=== PATIENT | male | born 1965 | race Caucasian/White ===

== ENCOUNTER → 2017-11-25 06:36 | Outpatient (CLI) | payer OTHER, SELFPAY ==
--- NOTE | 2017-11-25 15:44 | STRESSREP_ITS ---
Stress Test Report Exercise myocardial perfusion stress test. 52-year-old man with a history of coronary artery disease. Medications losartan and metoprolol. Stress protocol: Resting EKG demonstrates normal sinus rhythm with a rate of 94 bpm normal intervals and noted T-wave inversions noted in 3 and aVF. Resting blood pressure is 138/90 mmHg. The patient exercised for total duration of 6 minutes completing stage II of the Venkatesh protocol. The maximum heart rate attained was 162 bpm which was 95% of maximum predicted heart rate the maximum workload attained was 7.4 mets. At rest there were no ST or T-wave changes noted suggest ischemia or T-wave inversions were noted in the inferior leads. At peak exercise upsloping ST changes only were noted with no meet the criteria for ischemia. The resting blood pressure 738/90 with a peak blood pressure 172/ 80 mmHg. No clinical angina was noted. Myocardial perfusion protocol. 14.6 mCi of technetium 99m sestamibi was injected at rest. Patient exercised according to regular Venkatesh protocol for 6 minutes completing stage II of the Venkatesh protocol. At peak exercise 44.5 mCi of technetium 99m sestamibi was injected stress images were obtained stress and rest images were reconstructed and compared in the short axis vertical long and horizontal long axis. Gated images were also obtained. Perfusion SPECT analysis: Review of the stress images demonstrate normal uptake of tracer noted in the septum anterior wall and lateral wall. The distal inferior wall towards the apex has mildly reduced perfusion on the stress images with minimal improvement on the resting images. A small amount of ischemia in a small zone cannot be completely excluded. Gated SPECT analysis: The gated ejection fraction demonstrated globally reduced ejection fraction of 26%. Conclusion: Cardiomyopathy present. Exercise stress test with small/minimal area of inferoapical ischemia. The above could be accounted for by the cardiomyopathy. Good functional aerobic capacity.
== END ==
PROVIDERS: Family Provider Family Medicine; PCP Family Medicine; Visit Provider Internal Medicine Cardiovascular Disease
DX: I25.10 Atherosclerotic heart disease of native coronary artery without angina pectoris (principal); E78.4 Other hyperlipidemia
CPT/HCPCS: 78452; 93017; A9500; A4216

== ENCOUNTER → 2019-08-21 14:44 | Outpatient (CLI) | payer OTHER, SELFPAY ==
[2019-08-04 14:56] VITALS: BMI 46.0
--- NOTE | 2019-08-21 14:45 | ECHOCS_ITS ---
Reason For Study: CAD/ASHD Procedure This was a 2D Doppler, Color Flow transthoracic echocardiogram. The study was technically difficult. Contrast injection was performed. Exam performed in department. Left Ventricle Severely dilated left ventricle. The estimated ejection fraction is 35-40 %. Stage 1 diastolic dysfunction. There is moderate to severe global hypokinesis of the left ventricle. Right Ventricle Normal size and thickness. Normal systolic function. Atria Normal left atrium. Normal right atrium. Normal atrial septum. Mitral Valve Mitral valve not well visualized. Tricuspid Valve Normal tricuspid valve. Trivial tricuspid valve insufficiency. Right ventricular systolic pressure estimated to be 34 mmHg. Aortic Valve Normal aortic valve. Trisinus/trileaflet aortic valve. Pulmonic Valve Normal pulmonic valve. Trivial pulmonic valve insufficiency. Great Vessels Normal aortic root. Normal arch. Normal inferior vena cava. Inferior vena cava collapse with sniff. Pericardium/Pleural No pericardial effusion. Medication 22 gauge I.V. with prn adaptor inserted into right arm. Diluted definity 4.0ml given slow IV push to enhance endocardial definition. MMode/2D Measurements & Calculations LVIDd: 6.2 cm IVSd: 1.1 cm Ao root diam: 2.8 cm LVIDs: 4.8 cm LVPWd: 1.1 cm RVDd: 3.0 cm FS: 22.4 % LAV(MOD-bp): 34.8 ml LA A4 area: 14.5 cm2 LA dimension(2D): 4.3 cm LAV(MOD-bp) Indexed: 15.1 ml/m2 LAV(MOD-sp2): 29.5 ml LAV(MOD-sp4): 36.8 ml RA A4 area: 13.7 cm2 Time Measurements MV dec time: 0.14 sec Doppler Measurements & Calculations MV E max jeb: 84.4 cm/sec Lat Peak E' Jeb: 6.1 cm/sec Med Peak E' Jeb: 3.7 cm/sec MV A max jeb: 109.0 cm/sec E/E' lat: 13.9 E/E' med: 22.6 MV E/A: 0.77 Ao V2 max: 156.1 cm/sec LV V1 max: 97.8 cm/sec PA V2 max: 129.8 cm/sec Ao max P.7 mmHg LV V1 max P.8 mmHg TR max jeb: 267.3 cm/sec TR max P.6 mmHg Interpretation Summary Severely dilated left ventricle. The estimated ejection fraction is 35-40 %. Stage 1 diastolic dysfunction. There is moderate to severe global hypokinesis of the left ventricle. Trivial tricuspid valve insufficiency. Right ventricular systolic pressure estimated to be 34 mmHg. Compared to echo report dated 07/25/2009 LV function is decreased from 60% to 35 to 40% with moderate to severe global hypokinesis. RVSP may be underestimated. The study was technically difficult. Contrast injection was performed. Ordering Physician: Adebayo Velez Referring Physician: Freddy Dsouza Performed By: Lisa Esquivel RDCS, RVT
== END ==
PROVIDERS: Family Provider Family Medicine; PCP Family Medicine; Referring Provider Internal Medicine Cardiovascular Disease; Visit Provider Internal Medicine Cardiovascular Disease
DX: I25.10 Atherosclerotic heart disease of native coronary artery without angina pectoris (principal); I10 Essential (primary) hypertension; E78.5 Hyperlipidemia, unspecified; Z95.5 Presence of coronary angioplasty implant and graft; Z98.890 Other specified postprocedural states
CPT/HCPCS: 93306; Q9957; A4216; C8929

== ENCOUNTER → 2019-08-24 16:49 | Outpatient (CLI) | payer OTHER, SELFPAY ==
[2019-08-04 14:56] VITALS: BMI 46.0
[2019-08-24 20:20] LABS: BUN 23 mg/dL (7-18); Creatinine, Serum 1.15 mg/dL (0.70-1.30); EST Glomerular Filtration Rate 71 mL/min (>60); Est Glom Filt Rate - Afr Amer 86 mL/min (>60); Glucose 103 mg/dL (74-106)
[2019-08-24 20:21] LABS: Anion Gap 6 (5-15); Calcium,Total 9.1 mg/dL (8.5-10.1); Chloride 101 mmol/L (98-107); Hematocrit 47.1 % (40-54); Hemoglobin 15.2 g/dL (13.0-16.5); Mean Corp Hgb Conc 32.3 g/dL (32-36); Mean Corpuscular Hgb 28.1 pg (27.0-32.0); Mean Corpuscular Volume 87.1 fL (80-94); Mean Platelet Vol. 9.2 fl (6.2-12.0); Platelet Count 311 K/mm3 (150-450); Potassium 3.5 mmol/L (3.5-5.1); RBC Distribution Width CV 13.4 % (11.6-14.6); RBC Distribution Width SD 42.5 fl (35.1-43.9); Red Blood Count 5.41 M/mm3 (4.6-6.2); Sodium Level 135 mmol/L (136-145)
[2019-08-24 20:22] LABS: Partial Thromboplast Time 28.9 Seconds (24.1-36.2); Prothrombin Time (Protime)PT. 12.7 SECONDS (11.7-14.9)
== END ==
PROVIDERS: Family Provider Family Medicine; PCP Family Medicine; Referring Provider Internal Medicine Cardiovascular Disease; Visit Provider Internal Medicine Cardiovascular Disease
DX: I51.9 Heart disease, unspecified (principal); I25.10 Atherosclerotic heart disease of native coronary artery without angina pectoris; R94.31 Abnormal electrocardiogram [ECG] [EKG]; R93.1 Abnormal findings on diagnostic imaging of heart and coronary circulation; Z95.5 Presence of coronary angioplasty implant and graft; Z98.890 Other specified postprocedural states; Z82.49 Family history of ischemic heart disease and other diseases of the circulatory system
CPT/HCPCS: 71046; 80048; 85027; 85610; 85730

== ENCOUNTER 2019-09-02 07:02 | Day surgery (SDC) | payer OTHER, SELFPAY ==
--- NOTE | 2019-08-04 03:38 | HP_ITS ---
HPI HPI History of Present Illness Surgical H&P: Yes Details: Mr. Irwin is a very pleasant 54-year-old gentleman, previous [id number] smoker who quit at age 43, nondiabetic, former patient Dr. Romero, with a history of obesity, hypertension, hypercholesterolemia, coronary artery disease who presented on 03/15/2009 with unstable anginal symptoms and underwent left heart catheterization by Dr. Pardo on 03/15/2009 at [facility]. At that time he was found to have an angiographically normal left main, mild to moderate diffuse disease of his LAD, mild diffuse disease of his left circumflex, a high-grade proximal stenosis in his ramus intermedius, and a chronically subtotally occluded right coronary artery with [id number] collaterals and reduced LV function. The patient underwent successful heparin and Integrilin-assisted angioplasty and stenting on 03/15/2009 at [facility] by Dr. Dunbar receiving a 3.0X 23 Promus drug-eluting stent to the proximal ramus intermedius. His right coronary was left for medical management. Patient was treated medically. Patient did complete cardiac rehab but does not formally exercise. He then followed up with Dr. Thibodeaux, and his most recent stress test took place at [facility] on 11/25/2017 exercising 6 minutes, 7.4 METS, with upsloping ST segment changes which did not meet criteria, and a small minimal area of inferoapical ischemia. No additional catheterization was performed. In addition on 06/09/2018 patient underwent a 2D echo with Doppler at the [facility] which demonstrated an EF around 54%, grade 1 diastolic dysfunction, mildly dilated left ventricle and mild global LV dysfunction. Unfortunately the patient was unable to take pravastatin due to myalgias. He is on omega-3 fatty acids. He is currently on baby aspirin, losartan and metoprolol. Patient states that he has had no chest pain symptoms, however has had dyspnea on exertion and some shortness of breath. 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 He does not formally exercise. In addition the patient admits to snoring, albeit of less intensity over the last few years, as well as daytime somnolence. He has never had a sleep study. In our office today his blood pressure is 140/84, and pulse is 84 and regular. His physical exam demonstrates clear lungs bilaterally, regular rate and rhythm, normal S1/S2, no S3 or S4. No murmurs are noted. No recent lipids noted. EKG dated 06/04/2018 showed normal sinus rhythm, normal axis, normal intervals, no evidence of previous myocardial infarction. EKG dated 08/04/2019 shows normal sinus rhythm, normal axis, incomplete right bundle branch block, no acute changes. 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, STENTS Card Cleaner Required: No Accompanied by: Is patient in pain?: No Allergies pravastatin Adverse Reaction (Severe, Verified 08/04/19 15:01) Myalgias Medications losartan 50 mg tablet 50 mg PO DAILY 07/29/19 [History Confirmed 08/04/19] metoprolol succinate 25 mg tablet,extended release 24 hr 25 mg PO DAILY 07/29/19 [History Confirmed 08/04/19] multivitamin 1 tab PO DAILY 07/29/19 [History Confirmed 08/04/19] omega-3 fatty acids 1,000 mg capsule 1,000 mg PO DAILY 07/29/19 [History Confirmed 08/04/19] aspirin 81 mg tablet,delayed release 81 mg PO DAILY 08/04/19 [History Confirmed 08/04/19] garlic 1,000 mg capsule 1,000 mg PO DAILY cap 08/04/19 [History Confirmed 08/04/19] gemfibrozil 600 mg tablet 600 mg PO BID #60 tab 08/04/19 [Rx Confirmed 08/04/19] turmeric root extract 500 mg capsule 500 mg PO DAILY 08/04/19 [History Confirmed 08/04/19] [facility] Medical History (Updated 07/29/19 @ 12:31 by Ines Hernandez) Family history of ischemic heart disease (Chronic) Atherosclerosis of coronary artery of [place] heart without angina pectoris (Chronic) Essential hypertension (Chronic) Hyperlipidemia (Chronic) Surgical History (Updated 12/11/19 @ 12:24 by Ines Hernandez) Stented coronary artery (Chronic 03/15/09) History of left heart catheterization (Chronic 03/15/09) Family History (Updated 08/04/19 @ 14:56 by Ines Hernandez) Father Pacemaker Mother Atrial fibrillation Social History (Updated 08/04/19 @ 15:39 by Adebayo Velez MD) Smoking Status: Former smoker quit date: 03/15/09 ROS Const Const: Positive for other (Former pt of Dr. Subhash Gillespie, [facility]); negative for fatigue, weakness, body ache, fever(s), headache(s), chills, frequent falls, night sweats, daytime sleepiness, difficulty sleeping, excessive sweating, weight gain, weight loss, increased appetite, poor appetite or anorexia Eyes Eyes: Negative for blind spots, loss of peripheral vision, transient loss of vision, blurry vision, change in vision, double vision, floaters, tunnel vision or other ENT ENT: Negative for headache(s), dizziness, hearing loss, tinnitus, Nosebleed/epistaxis, balance problems, post nasal drip, lip swelling, tongue swelling, bleeding gums, hoarseness, neck pain, dry mouth or other Cardio Chest Pain: No Palpitations: No Edema: None Muscle aches with walking: None Resp Respiratory: Negative for SOB with activity, SOB at rest, SOB orthopnea\SOB lying down, Cough, Coughing up blood/hemoptysis, chest congestion, pain on inspiration, snoring, stridor, wheezing, crackles, paroxysmal nocturnal dyspnea or other GI GI: Negative nausea, vomiting, heartburn, constipation, belching, bloating, cramping, vomiting blood/hematemesis, bright, red blood in stools, black,tarry stools, loose stools, Difficulty Swallowing or other : Negative for hematuria, frequent nighttime urination/ nocturia, erectile dysfunction or abnormal vaginal bleeding Musc Musc: Negative for muscle aches/ myalgia, muscle weakness, joint pain or balance problems Skin Skin: Negative redness, non-healing lesions, rash, unusual bruising, skin ulcer, wounds, jaundice or other Neuro Neuro: Negative for dizziness, lightheadedness, near syncope, syncope, orthostatic symptoms, frequent falls, headache(s), weakness, confusion, memory loss, restless legs, blurry vision, double vision, vertigo, seizures, lack of coordination or other [place] Hematologic/Lymphatic: Negative for easy bleeding, easy bruising, enlarged lymph nodes or other Endo Endo: Negative for fatigue, cold intolerance, heat intolerance, excessive sweating, flushing, increased thirst/drinking, increased hunger, hair loss, hair growth or other Psych Psych: Negative for anxiety, depression, thoughts of harming anyone, thoughts of harming yourself, visual hallucinations, panic attacks or audible hallucinations Allergy Allergy/Immunology: Negative for throat swelling, Negative for tongue swelling, Negative for hives, Negative for rash, Negative for lip swelling Cardiology Exam Const Appearance: cooperative, healthy appearing and no acute distress Nutritional Appearance: well nourished Orientation: alert, oriented x3 and oriented to person Head Head: normal to inspection, normocephalic and atraumatic Nose: external nose normal Face and Sinus: face symmetric Mouth: oral mucosae normal Eyes General: appearance normal, both eyes and all related structures Eyelids: eyelids normal Conjunctivae: conjunctivae normal Pupils: PERRL and normal by confrontation EOM: EOM intact bilaterally Neck Neck: normal visual inspection and full ROM Carotids: normal carotid upstroke Chest Chest inspection: normal inspection of the chest Auscultation: Bilateral: Clear to Auscultation Cardio Palpation: normal PMI Rate: regular rate Rhythm: regular rhythm Heart sounds: S1 normal and S2 normal GI GI: normal to inspection, no hepatosplenomegaly and bowel sounds present Neuro General: alert, awake, oriented x3, CN's II-XI intact bilaterally and moves all extremities Skin Skin: no rashes or lesions noted Extremities Pulses: Normal: Right Femoral Pulse, Left Femoral Pulse, Right Dorsalis Pedis Pulse, Left Dorsalis Pedis Pulse, Right Posterior Tibial Pulse, Left Posterior Tibial Pulse, Right Radial Pulse, Left Radial Pulse Lower Extremity Edema: None: Bilateral Psych Psychological: normal affect Assessment & Plan 1. Atherosclerosis of coronary artery of [place] heart without angina pectoris I25.10 3.0 X 23 Promus to Ramus intermedius per Dr. Earline Roldan @ [facility] 03/15/2009 Plan 1. Coronary artery disease: The patient had extensive premature coronary artery disease most likely a result of extreme reaction to tobacco use over many years, who quit tobacco in 2008 at the time of his angioplasty and stenting and has not returned to it. Patient wishes to get into an exercise program, and to that end I recommended he undergo a surveillance treadmill echocardiogram to determine if he has any areas of ischemia particularly of the inferolateral wall. If this is grossly abnormal for ischemia, he may require a repeat diagnostic coronary angiogram to evaluate his previously placed stent, progression of disease of his LAD and circumflex. If however it is negative, I would recommend he proceed with exercise therapy to facilitate weight loss and cardiac health. In the meantime we will continue baby aspirin, losartan, and metoprolol. In addition given his LV dysfunction in the past I recommend a surveillance repeat 2D echo with Doppler to determine his LV function at this time, and more importantly to evaluate his pulmonary pressures for possibly undiagnosed obstructive sleep apnea. Orders Orders: 12 Lead EKG performed by [facility] Today Echo Complete Today Stress Test Echo w/o Contrast Today 2. Hyperlipidemia E78.5 Plan 2. Hyperlipidemia: Unfortunately the patient was unable to take statin based medications due to severe myalgias. I recommended he try gemfibrozil 6 and a milligrams p.o. twice daily and repeat lipid profile in 6 weeks time. Orders Orders: Echo Complete Today Stress Test Echo w/o Contrast Today 3. Daytime somnolence R40.0 Plan 3. Daytime somnolence: I recommended the patient be referred for a sleep study to determine if he has obstructive sleep apnea. If this is abnormal, he will require CPAP or BiPAP therapy and referral to pulmonary. 4. Obesity: I had a long and thorough discussion regarding the patient's weight, and encouraged him after his stress test is completed to engage into an exercise program and dietary management. Patient is voiced understanding, and will contemplate exercise therapy. 5. Return office in 6 months. This note was generated using a voice recognition system and there may be incorrect words, spelling or punctuation that were not noted when reviewing the office note prior to saving. Orders Orders: Polysomnography Today Plan Detail Other Orders Orders: 12 Lead EKG performed by [facility] Today Z95.5 Lipid Profile 6 Weeks E78.00 Liver Profile 6 Weeks E78.00 Echo Complete Today I10, Z95.5, Z98.890 Stress Test Echo w/o Contrast Today I10, Z95.5, Z98.890 Other Medications New: gemfibrozil 600 mg PO BID 60 tabs 11RF Follow Up +6M (Velez) Coding Level of Care Code Off vis,new,level 4 Diagnoses Atherosclerosis of coronary artery of [place] heart without angina pectoris I25.10 Hyperlipidemia E78.5 Daytime somnolence R40.0 Coding Level of Care Code Off vis,new,level 4 Diagnoses Atherosclerosis of coronary artery of [place] heart without angina pectoris I25.10 Hyperlipidemia E78.5 Daytime somnolence R40.0 Supplemental Info Supplemental Information Diagnostics Stress Test Nuclear Medicine 11/25/17 Stress Test 11/25/17 08/04/19 1539 <Electronically signed by Adebayo Velez MD> Date _ Adebayo Velez MD
[2019-08-04 14:56] VITALS: BMI 46.0
--- NOTE | 2019-08-24 17:06 | RAD_ITS ---
STUDY: X-RAY CHEST REASON FOR EXAM: Male, 54 years old. HAVING HEART CATH NEXT WEEK. TECHNIQUE: PA and lateral views of the chest. COMPARISON: None. FINDINGS: The lungs are clear and expanded. There is no demonstrated pleural abnormality. Normal size heart. Normal mediastinum and paul. Normal visualized pulmonary arteries. Normal visualized aortic arch and descending thoracic aorta. There are diffuse degenerative changes of the visualized thoracic spine. Normal visualized ribs, clavicles, and shoulders. RAD/Chest PA and Lateral IMPRESSION: No acute process Electronically Signed: Aristeo Cabrera MD at 12:35 EST , Service support ,
[2019-08-25 08:52] LABS: Hematocrit 47.1 % (40-54); Hemoglobin 15.2 g/dL (13.0-16.5); Mean Corp Hgb Conc 32.3 g/dL (32-36); Mean Corpuscular Hgb 28.1 pg (27.0-32.0); Mean Corpuscular Volume 87.1 fL (80-94); Mean Platelet Vol. 9.2 fl (6.2-12.0); Partial Thromboplast Time 28.9 Seconds (24.1-36.2); Platelet Count 311 K/mm3 (150-450); Prothrombin Time (Protime)PT. 12.7 SECONDS (11.7-14.9); RBC Distribution Width CV 13.4 % (11.6-14.6); RBC Distribution Width SD 42.5 fl (35.1-43.9); Red Blood Count 5.41 M/mm3 (4.6-6.2)
[2019-08-25 08:53] LABS: Anion Gap 6 (5-15); BUN 23 mg/dL (7-18); Calcium,Total 9.1 mg/dL (8.5-10.1); Chloride 101 mmol/L (98-107); Creatinine, Serum 1.15 mg/dL (0.70-1.30); EST Glomerular Filtration Rate 71 mL/min (>60); Est Glom Filt Rate - Afr Amer 86 mL/min (>60); Glucose 103 mg/dL (74-106); Potassium 3.5 mmol/L (3.5-5.1); Sodium Level 135 mmol/L (136-145)
[2019-09-01 07:04] VITALS: BMI 46.0
--- NOTE | 2019-09-02 08:10 | PCM.HP.BLA ---
Problem List (1) Abnormal EKG Status: Acute (2) Abnormal echocardiogram Status: Acute (3) Severe left ventricular systolic dysfunction Status: Acute (4) Atherosclerosis of coronary artery of [place] heart without angina pectoris Status: Chronic Comment: 3.0 X 23 Promus to Ramus intermedius per Dr. Earline Roldan @ [facility] 03/15/2009 (5) Essential hypertension Status: Chronic (6) Hyperlipidemia Status: Chronic (7) Stented coronary artery Status: Chronic Comment: 3.0 X 23 Promus to Ramus intermedius per Dr. Earline Roldan @ [facility] 03/15/2009 History and Physical Date of Admission: 09/02/19 [facility] Medical Records Department [address] [place] [address] History and Physical 08/04/19 0338 MR#: [id number] Acct: [id number] Name: MALLY WILSON Rep #: [id number] : 1965 54 From: Adebayo Velez MD PCP: Freddy Dsouza [place] [facility] [place] [facility] HPI HPI History of Present Illness Surgical H&P: Yes Details: Mr. Wilson is a very pleasant 54-year-old gentleman, previous 55-lieq-geez smoker who quit at age 43, nondiabetic, former patient Dr. Romero, with a history of obesity, hypertension, hypercholesterolemia, coronary artery disease who presented on 03/15/2009 with unstable anginal symptoms and underwent left heart catheterization by Dr. Pardo on 03/15/2009 at [facility]. At that time he was found to have an angiographically normal left main, mild to moderate diffuse disease of his LAD, mild diffuse disease of his left circumflex, a high-grade proximal stenosis in his ramus intermedius, and a chronically subtotally occluded right coronary artery with crxy-mr-vejnh collaterals and reduced LV function. The patient underwent successful heparin and Integrilin-assisted angioplasty and stenting on 03/15/2009 at [facility] by Dr. Dunbar receiving a 3.0X 23 Promus drug-eluting stent to the proximal ramus intermedius. His right coronary was left for medical management. Patient was treated medically. Patient did complete cardiac rehab but does not formally exercise. He then followed up with Dr. Thibodeaux, and his most recent stress test took place at [facility] on 11/25/2017 exercising 6 minutes, 7.4 METS, with upsloping ST segment changes which did not meet criteria, and a small minimal area of inferoapical ischemia. No additional catheterization was performed. In addition on 06/09/2018 patient underwent a 2D echo with Doppler at the [facility] which demonstrated an EF around 54%, grade 1 diastolic dysfunction, mildly dilated left ventricle and mild global LV dysfunction. Unfortunately the patient was unable to take pravastatin due to myalgias. He is on omega-3 fatty acids. He is currently on baby aspirin, losartan and metoprolol. Patient states that he has had no chest pain symptoms, however has had dyspnea on exertion and some shortness of breath. 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 He does not formally exercise. In addition the patient admits to snoring, albeit of less intensity over the last few years, as well as daytime somnolence. He has never had a sleep study. In our office today his blood pressure is 140/84, and pulse is 84 and regular. His physical exam demonstrates clear lungs bilaterally, regular rate and rhythm, normal S1/S2, no S3 or S4. No murmurs are noted. No recent lipids noted. EKG dated 06/04/2018 showed normal sinus rhythm, normal axis, normal intervals, no evidence of previous myocardial infarction. EKG dated 08/04/2019 shows normal sinus rhythm, normal axis, incomplete right bundle branch block, no acute changes. 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, STENTS Early Morning Babysitter Required: No Accompanied by: Is patient in pain?: No Allergies pravastatin Adverse Reaction (Severe, Verified 08/04/19 15:01) Myalgias Medications losartan 50 mg tablet 50 mg PO DAILY 07/29/19 [History Confirmed 08/04/19] metoprolol succinate 25 mg tablet,extended release 24 hr 25 mg PO DAILY 07/29/19 [History Confirmed 08/04/19] multivitamin 1 tab PO DAILY 07/29/19 [History Confirmed 08/04/19] omega-3 fatty acids 1,000 mg capsule 1,000 mg PO DAILY 07/29/19 [History Confirmed 08/04/19] aspirin 81 mg tablet,delayed release 81 mg PO DAILY 08/04/19 [History Confirmed 08/04/19] garlic 1,000 mg capsule 1,000 mg PO DAILY cap 08/04/19 [History Confirmed 08/04/19] gemfibrozil 600 mg tablet 600 mg PO BID #60 tab 08/04/19 [Rx Confirmed 08/04/19] turmeric root extract 500 mg capsule 500 mg PO DAILY 08/04/19 [History Confirmed 08/04/19] PFSH Medical History (Updated 07/29/19 @ 12:31 by Ines Hernandez) Family history of ischemic heart disease (Chronic) Atherosclerosis of coronary artery of [place] heart without angina pectoris (Chronic) Essential hypertension (Chronic) Hyperlipidemia (Chronic) Surgical History (Updated 07/29/19 @ 12:24 by Ines Hernandez) Stented coronary artery (Chronic 03/15/09) History of left heart catheterization (Chronic 03/15/09) Family History (Updated 08/04/19 @ 14:56 by Ines Hernandez) Father Pacemaker Mother Atrial fibrillation Social History (Updated 08/04/19 @ 15:39 by Adebayo Velez MD) Smoking Status: Former smoker quit date: 03/15/09 ROS Const Const: Positive for other (Former pt of Dr. Subhash Gillespie, [facility] negative for fatigue, weakness, body ache, fever(s), headache(s), chills, frequent falls, night sweats, daytime sleepiness, difficulty sleeping, excessive sweating, weight gain, weight loss, increased appetite, poor appetite or anorexia Eyes Eyes: Negative for blind spots, loss of peripheral vision, transient loss of vision, blurry vision, change in vision, double vision, floaters, tunnel vision or other ENT ENT: Negative for headache(s), dizziness, hearing loss, tinnitus, Nosebleed/epistaxis, balance problems, post nasal drip, lip swelling, tongue swelling, bleeding gums, hoarseness, neck pain, dry mouth or other Cardio Chest Pain: No Palpitations: No Edema: None Muscle aches with walking: None Resp Respiratory: Negative for SOB with activity, SOB at rest, SOB orthopnea\SOB lying down, Cough, Coughing up blood/hemoptysis, chest congestion, pain on inspiration, snoring, stridor, wheezing, crackles, paroxysmal nocturnal dyspnea or other GI GI: Negative nausea, vomiting, heartburn, constipation, belching, bloating, cramping, vomiting blood/hematemesis, bright, red blood in stools, black,tarry stools, loose stools, Difficulty Swallowing or other : Negative for hematuria, frequent nighttime urination/ nocturia, erectile dysfunction or abnormal vaginal bleeding Musc Musc: Negative for muscle aches/ myalgia, muscle weakness, joint pain or balance problems Skin Skin: Negative redness, non-healing lesions, rash, unusual bruising, skin ulcer, wounds, jaundice or other Neuro Neuro: Negative for dizziness, lightheadedness, near syncope, syncope, orthostatic symptoms, frequent falls, headache(s), weakness, confusion, memory loss, restless legs, blurry vision, double vision, vertigo, seizures, lack of coordination or other [place] Hematologic/Lymphatic: Negative for easy bleeding, easy bruising, enlarged lymph nodes or other Endo Endo: Negative for fatigue, cold intolerance, heat intolerance, excessive sweating, flushing, increased thirst/drinking, increased hunger, hair loss, hair growth or other Psych Psych: Negative for anxiety, depression, thoughts of harming anyone, thoughts of harming yourself, visual hallucinations, panic attacks or audible hallucinations Allergy Allergy/Immunology: Negative for throat swelling, Negative for tongue swelling, Negative for hives, Negative for rash, Negative for lip swelling Cardiology Exam Const Appearance: cooperative, healthy appearing and no acute distress Nutritional Appearance: well nourished Orientation: alert, oriented x3 and oriented to person Head Head: normal to inspection, normocephalic and atraumatic Nose: external nose normal Face and Sinus: face symmetric Mouth: oral mucosae normal Eyes General: appearance normal, both eyes and all related structures Eyelids: eyelids normal Conjunctivae: conjunctivae normal Pupils: PERRL and normal by confrontation EOM: EOM intact bilaterally Neck Neck: normal visual inspection and full ROM Carotids: normal carotid upstroke Chest Chest inspection: normal inspection of the chest Auscultation: Bilateral: Clear to Auscultation Cardio Palpation: normal PMI Rate: regular rate Rhythm: regular rhythm Heart sounds: S1 normal and S2 normal GI GI: normal to inspection, no hepatosplenomegaly and bowel sounds present Neuro General: alert, awake, oriented x3, CN's II-XI intact bilaterally and moves all extremities Skin Skin: no rashes or lesions noted Extremities Pulses: Normal: Right Femoral Pulse, Left Femoral Pulse, Right Dorsalis Pedis Pulse, Left Dorsalis Pedis Pulse, Right Posterior Tibial Pulse, Left Posterior Tibial Pulse, Right Radial Pulse, Left Radial Pulse Lower Extremity Edema: None: Bilateral Psych Psychological: normal affect Assessment & Plan 1. Atherosclerosis of coronary artery of [place] heart without angina pectoris I25.10 3.0 X 23 Promus to Ramus intermedius per Dr. Earline Roldan @ [facility] 03/15/2009 Plan 1. Coronary artery disease: The patient had extensive premature coronary artery disease most likely a result of extreme reaction to tobacco use over many years, who quit tobacco in 2008 at the time of his angioplasty and stenting and has not returned to it. Patient wishes to get into an exercise program, and to that end I recommended he undergo a surveillance treadmill echocardiogram to determine if he has any areas of ischemia particularly of the inferolateral wall. If this is grossly abnormal for ischemia, he may require a repeat diagnostic coronary angiogram to evaluate his previously placed stent, progression of disease of his LAD and circumflex. If however it is negative, I would recommend he proceed with exercise therapy to facilitate weight loss and cardiac health. In the meantime we will continue baby aspirin, losartan, and metoprolol. In addition given his LV dysfunction in the past I recommend a surveillance repeat 2D echo with Doppler to determine his LV function at this time, and more importantly to evaluate his pulmonary pressures for possibly undiagnosed obstructive sleep apnea. Orders Orders: 12 Lead EKG performed by B[facility] Today Echo Complete Today Stress Test Echo w/o Contrast Today 2. Hyperlipidemia E78.5 Plan 2. Hyperlipidemia: Unfortunately the patient was unable to take statin based medications due to severe myalgias. I recommended he try gemfibrozil 6 and a milligrams p.o. twice daily and repeat lipid profile in 6 weeks time. Orders Orders: Echo Complete Today Stress Test Echo w/o Contrast Today 3. Daytime somnolence R40.0 Plan 3. Daytime somnolence: I recommended the patient be referred for a sleep study to determine if he has obstructive sleep apnea. If this is abnormal, he will require CPAP or BiPAP therapy and referral to pulmonary. 4. Obesity: I had a long and thorough discussion regarding the patient's weight, and encouraged him after his stress test is completed to engage into an exercise program and dietary management. Patient is voiced understanding, and will contemplate exercise therapy. 5. Return office in 6 months. This note was generated using a voice recognition system and there may be incorrect words, spelling or punctuation that were not noted when reviewing the office note prior to saving. Orders Orders: Polysomnography Today Plan Detail Other Orders Orders: 12 Lead EKG performed by BMS Today Z95.5 Lipid Profile 6 Weeks E78.00 Liver Profile 6 Weeks E78.00 Echo Complete Today I10, Z95.5, Z98.890 Stress Test Echo w/o Contrast Today I10, Z95.5, Z98.890 Other Medications New: gemfibrozil 600 mg PO BID 60 tabs 11RF Follow Up +6M (Agustin) Coding Level of Care Code Off vis,new,level 4 Diagnoses Atherosclerosis of coronary artery of [place] heart without angina pectoris I25.10 Hyperlipidemia E78.5 Daytime somnolence R40.0 Coding Level of Care Code Off vis,new,level 4 Diagnoses Atherosclerosis of coronary artery of [place] heart without angina pectoris I25.10 Hyperlipidemia E78.5 Daytime somnolence R40.0 Supplemental Info Supplemental Information Diagnostics Stress Test Nuclear Medicine 11/25/17 Stress Test 11/25/17 08/04/19 1789 <Electronically signed by Adebayo Velez MD> Date Adebayo Velez MD 08/25/19 2303 <Electronically signed by Adebayo Velez MD> Date: Time: Adebayo Velez MD CC: Adebayo Velez MD; Freddy Dsouza MD ~ Date Dictated: 08/04/19 0338 Date Transcribed: 08/25/19 1144 [employer]: MARGOT Signed Interventional cardiology addendum: Patient seen and examined this morning, no interim change from previous history and physical. The risk/benefits of the procedure were thoroughly explained the patient including specific attention to lack of onsite surgical backup, and informed consent was obtained. Left and right heart catheterization to follow.
[2019-09-02 08:46] LABS: Blood Gas Specimen Type VEN; VBG BASE EXCESS 0 mmol/L (-1.0-3.5); VBG Bicarbonate 25 mmol/L (22-26); VBG Oxygen Content 26 mmol/L (23-33); VBG PO2 36 mmHg (25-40); VBG SO2 68 % (50-70); VBG pCO2 40.9 mmHg (41-51); VBG pH 7.39 (7.32-7.42)
[2019-09-02 08:46] LABS: Base Excess 1 mmol/L (-2 to +2); Bicarbonate 25.2 mmol/L (22-26); Blood Gas Specimen Type ART; PO2 72 mmHG (75-100); SO2 95 % (95-99); Total Carbon Dioxide 26 mmol/L; pCO2 39.5 mmHg (35-45); pH 7.41 (7.35-7.45)
[2019-09-02 08:46] LABS: Blood Gas Specimen Type VEN; VBG BASE EXCESS 0 mmol/L (-1.0-3.5); VBG Bicarbonate 26 mmol/L (22-26); VBG Oxygen Content 27 mmol/L (23-33); VBG PO2 35 mmHg (25-40); VBG SO2 66 % (50-70); VBG pCO2 42.3 mmHg (41-51); VBG pH 7.39 (7.32-7.42)
--- NOTE | 2019-09-02 09:01 | CL.D_ITS ---
Patient Name: MALLY WILSON Study Date: 09/02/2019 Performing: Adebayo Velez MD Ht: 66.14 inches 168 cm : 1965 Wt: 284.4 lbs 129 kg Age: 54 Gender: male BSA: 2.33 PROCEDURE(S) PERFORMED ES44-UYX/LHC/COR/LV CLINICAL PROFILE AND INDICATIONS Indications: Stable Known CAD Heart Failure: NYHA Class: 1, Newly Diagnosed: No, Heart Failure Type: Systolic Stress/Imaging Date: 11/25/2017Stress Test with SPECT MPI: Indeterminant Angina Classification Anginal Classification w/in 2 Weeks: Anginal Equivalent Dyspnea CAD Presentations: No Sxs, no angina. Comorbidities/Risk Factors: Hypertension Dyslipidemia Prior CHF Prior PCI CONCLUSIONS Segmented LV systolic dysfunction- Severe Global LV systolic dysfunction- Severe LVEF: by LV gram 20-25 % Elevated Left Ventricular End Diastolic Pressure Single vessel CAD of the RCA (Chronically known occlusion of RCA). Non obstructive coronary arteries RECOMMENDATIONS Management as per referring [employer] Make arrangements for AICD placement by Dr Gamboa in September 2019. Manual sheath removal. Increase cozaar to 50mg po bid. Cardiac rehab after AICD placed. DESCRIPTION OF PROCEDURE The patient arrived to the procedure lab. The risks and benefits of the procedure as well as a full d escription of our services here and current unavailability of surgical backup were fully explained to the patient and/or their significant other prior to the catheterization. The Timeout was completed, verifying the correct patient and procedure. The patient's procedural site was prepped and draped in the usual fashion. Local anesthetic was given subcutaneously to right groin region with Lidocaine 2%. Using a modified Seldinger technique, arterial access was obtained via the right femoral artery, a 4 Fr sheath was inserted Venous access was obtained via the right femoral vein, a 7Fr sheath was insert ed. A 7Fr thermal dilution catheter was inserted and right heart pressures were recorded, it was then advanced to PA position for cardiac outputs. Thermal dilution cardiac outputs were then recorded. O2 saturations were then obtained. Simultaneous pressures were then recorded. The Thermal dilution catheter was then removed. Left Ventriculography was performed in ORTEGA projection using a 4 F r. Pigtail catheter. LV to AO pullback pressures were then recorded. Left Coronary Artery selective a ngiography was performed in multiple views using a 4 Fr. JL5 catheter. Right Coronary Artery selectiv e angiography was then performed in multiple views using a 4 Fr. 3DRC catheter.The arterial sheath wa s pulled and manual compression applied until hemostasis is achieved. CORONARY ANGIOGRAPHY DOMINANCE: Right Dominant LEFT HEART ASSESSMENT Left Ventricular Ejection Fraction: by LV Gram 20-25 % Inferior Basal Akinesis. Anterior Hypokinesis - Severe Depressed Left Ventricular systolic function LVEDP: 22 mmHg Elevated Left Ventricular End Diastolic Pressure RIGHT HEART ASSESSMENT Thermal CO: 6.83 Thermal CI: 2.93 Vish CO: 5.17 Vish CI: 2.22 PW: 12 PA: 3012 22 RV: 28/0 8 RA: 12/24 4 PVR: 117 SVR: 1101 Right Heart pressures - normal LEFT MAIN: Angiographically normal LEFT ANTERIOR DESCENDING ARTERY: PROX LAD: Mild luminal irregularities less than 30% MID LAD: Mild luminal irregularities less than 30% CIRCUMFLEX ARTERY: Mild luminal irregularities less than 30% RAMUS: Previously placed stent is patent RIGHT CORONARY ARTERY: PROX RCA: is occluded COLLATERAL FLOW: Collateral flow from Left to Right COMPLICATIONS No Complications PROCEDURE MEDICATIONS Versed 1 mg IV Versed 1 mg IV Nitro Tab .4 mg PO 09/02/2019 08:54:10 SUMMARY OF HEMODYNAMIC DATA Time AIR REST ECG 07:20:55 RA 5/8 (4) SV 08:24:51 RV 28/0, 8 08:25:04 PW (12) PV 08:25:30 PA / (22) PA 08:25:48 LV 125/-11, 19 08:30:39 LV 124/-12, 16 08:30:46 LV 129/-10, 18 08:31:10 PW (13) 08:31:10 LV 132/-11, 20 08:31:28 RV 37/4, 8 08:31:28 LV 135/-5, 24 08:33:23 LV 133/-9, 23 08:33:30 LVp 133/-7, 21 08:33:34 AOp 137/73 (98) 08:33:39 AO 138/73 (98) SA 08:33:46 Type SV CO (l/m) CI (l/m/ HR Time AIR REST Thermal 96.20 6.83 2.93 71 07:20:55 Vish 72.80 5.17 2.22 71 07:20:55 Label % O2 Pres/Loc Time AIR REST AO 95 PV 08:38:20 PA 66 PA 08:38:28 Signed By Adebayo Velez MD On 09/02/2019 09:01:44 Signed By Adebayo Velez MD On 09/02/2019 09:00:39 Adebayo Velez MD
== END 2019-09-02 13:35 | disposition home or self-care (01) ==
LOC: CLSP 07:02
PROVIDERS: Family Provider Family Medicine; PCP Family Medicine; Referring Provider Internal Medicine Cardiovascular Disease; Visit Provider Internal Medicine Cardiovascular Disease
DX: I25.10 Atherosclerotic heart disease of native coronary artery without angina pectoris (principal); I11.0 Hypertensive heart disease with heart failure; I50.1 Left ventricular failure, unspecified; E78.5 Hyperlipidemia, unspecified; G47.10 Hypersomnia, unspecified; R94.31 Abnormal electrocardiogram [ECG] [EKG]; R93.1 Abnormal findings on diagnostic imaging of heart and coronary circulation; E66.9 Obesity, unspecified; Z68.42 Body mass index [BMI] 45.0-49.9, adult; Z95.5 Presence of coronary angioplasty implant and graft; Z79.82 Long term (current) use of aspirin; Z87.891 Personal history of nicotine dependence
CPT/HCPCS: 36415; 80048; 82803; 85027; 85610; 85730; 93460; 99152; 99153; J7040; C1751; C1769; C1894; Q9967

== ENCOUNTER → 2019-09-14 13:00 | Outpatient (CLI) | payer OTHER, SELFPAY ==
[2019-08-04 14:56] VITALS: BMI 46.0
== END ==
PROVIDERS: Family Provider Family Medicine; PCP Family Medicine; Referring Provider Internal Medicine Cardiovascular Disease; Visit Provider Internal Medicine Cardiovascular Disease
DX: G47.10 Hypersomnia, unspecified (principal)
CPT/HCPCS: 95806

== ENCOUNTER 2019-09-24 09:48 | Day surgery (SDC) | payer OTHER, SELFPAY ==
--- NOTE | 2019-08-04 03:38 | HP_ITS ---
HPI HPI History of Present Illness Surgical H&P: Yes Details: Mr. Irwin is a very pleasant 54-year-old gentleman, previous 26-monf-ritl smoker who quit at age 43, nondiabetic, former patient Dr. Romero, with a history of obesity, hypertension, hypercholesterolemia, coronary artery disease who presented on 03/15/2009 with unstable anginal symptoms and underwent left heart catheterization by Dr. Pardo on 03/15/2009 at [facility]. At that time he was found to have an angiographically normal left main, mild to moderate diffuse disease of his LAD, mild diffuse disease of his left circumflex, a high-grade proximal stenosis in his ramus intermedius, and a chronically subtotally occluded right coronary artery with [id number] collaterals and reduced LV function. The patient underwent successful heparin and Integrilin-assisted angioplasty and stenting on 03/15/2009 at [facility] by Dr. Dunbar receiving a 3.0X 23 Promus drug-eluting stent to the proximal ramus intermedius. His right coronary was left for medical management. Patient was treated medically. Patient did complete cardiac rehab but does not formally exercise. He then followed up with Dr. Thibodeaux, and his most recent stress test took place at [facility] on 11/25/2017 exercising 6 minutes, 7.4 METS, with upsloping ST segment changes which did not meet criteria, and a small minimal area of inferoapical ischemia. No additional catheterization was performed. In addition on 06/09/2018 patient underwent a 2D echo with Doppler at the [facility] which demonstrated an EF around 54%, grade 1 diastolic dysfunction, mildly dilated left ventricle and mild global LV dysfunction. Unfortunately the patient was unable to take pravastatin due to myalgias. He is on omega-3 fatty acids. He is currently on baby aspirin, losartan and metoprolol. Patient states that he has had no chest pain symptoms, however has had dyspnea on exertion and some shortness of breath. 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 He does not formally exercise. In addition the patient admits to snoring, albeit of less intensity over the last few years, as well as daytime somnolence. He has never had a sleep study. In our office today his blood pressure is 140/84, and pulse is 84 and regular. His physical exam demonstrates clear lungs bilaterally, regular rate and rhythm, normal S1/S2, no S3 or S4. No murmurs are noted. No recent lipids noted. EKG dated 06/04/2018 showed normal sinus rhythm, normal axis, normal intervals, no evidence of previous myocardial infarction. EKG dated 08/04/2019 shows normal sinus rhythm, normal axis, incomplete right bundle branch block, no acute changes. 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 Accompanied by: Is patient in pain?: No Allergies pravastatin Adverse Reaction (Severe, Verified 08/04/19 15:01) Myalgias Medications losartan 50 mg tablet 50 mg PO DAILY 07/29/19 [History Confirmed 08/04/19] metoprolol succinate 25 mg tablet,extended release 24 hr 25 mg PO DAILY 07/29/19 [History Confirmed 08/04/19] multivitamin 1 tab PO DAILY 07/29/19 [History Confirmed 08/04/19] omega-3 fatty acids 1,000 mg capsule 1,000 mg PO DAILY 07/29/19 [History Confirmed 08/04/19] aspirin 81 mg tablet,delayed release 81 mg PO DAILY 08/04/19 [History Confirmed 08/04/19] garlic 1,000 mg capsule 1,000 mg PO DAILY cap 08/04/19 [History Confirmed 08/04/19] gemfibrozil 600 mg tablet 600 mg PO BID #60 tab 08/04/19 [Rx Confirmed 08/04/19] turmeric root extract 500 mg capsule 500 mg PO DAILY 08/04/19 [History Confirmed 08/04/19] [facility] Medical History (Updated 07/29/19 @ 12:31 by Ines Hernandez) Family history of ischemic heart disease (Chronic) Atherosclerosis of coronary artery of [place] heart without angina pectoris (Chronic) Essential hypertension (Chronic) Hyperlipidemia (Chronic) Surgical History (Updated 12/11/19 @ 12:24 by Ines Hernandez) Stented coronary artery (Chronic 03/15/09) History of left heart catheterization (Chronic 03/15/09) Family History (Updated 08/04/19 @ 14:56 by Ines Hernandez) Father Pacemaker Mother Atrial fibrillation Social History (Updated 08/04/19 @ 15:39 by Adebayo Velez MD) Smoking Status: Former smoker quit date: 03/15/09 ROS Const Const: Positive for other (Former pt of Dr. Subhash Gillespie, [facility]); negative for fatigue, weakness, body ache, fever(s), headache(s), chills, frequent falls, night sweats, daytime sleepiness, difficulty sleeping, excessive sweating, weight gain, weight loss, increased appetite, poor appetite or anorexia Eyes Eyes: Negative for blind spots, loss of peripheral vision, transient loss of vision, blurry vision, change in vision, double vision, floaters, tunnel vision or other ENT ENT: Negative for headache(s), dizziness, hearing loss, tinnitus, Nosebleed/epistaxis, balance problems, post nasal drip, lip swelling, tongue swelling, bleeding gums, hoarseness, neck pain, dry mouth or other Cardio Chest Pain: No Palpitations: No Edema: None Muscle aches with walking: None Resp Respiratory: Negative for SOB with activity, SOB at rest, SOB orthopnea\SOB lying down, Cough, Coughing up blood/hemoptysis, chest congestion, pain on inspiration, snoring, stridor, wheezing, crackles, paroxysmal nocturnal dyspnea or other GI GI: Negative nausea, vomiting, heartburn, constipation, belching, bloating, cramping, vomiting blood/hematemesis, bright, red blood in stools, black,tarry stools, loose stools, Difficulty Swallowing or other : Negative for hematuria, frequent nighttime urination/ nocturia, erectile dysfunction or abnormal vaginal bleeding Musc Musc: Negative for muscle aches/ myalgia, muscle weakness, joint pain or balance problems Skin Skin: Negative redness, non-healing lesions, rash, unusual bruising, skin ulcer, wounds, jaundice or other Neuro Neuro: Negative for dizziness, lightheadedness, near syncope, syncope, orthostatic symptoms, frequent falls, headache(s), weakness, confusion, memory loss, restless legs, blurry vision, double vision, vertigo, seizures, lack of coordination or other [place] Hematologic/Lymphatic: Negative for easy bleeding, easy bruising, enlarged lymph nodes or other Endo Endo: Negative for fatigue, cold intolerance, heat intolerance, excessive sweating, flushing, increased thirst/drinking, increased hunger, hair loss, hair growth or other Psych Psych: Negative for anxiety, depression, thoughts of harming anyone, thoughts of harming yourself, visual hallucinations, panic attacks or audible hallucinations Allergy Allergy/Immunology: Negative for throat swelling, Negative for tongue swelling, Negative for hives, Negative for rash, Negative for lip swelling Cardiology Exam Const Appearance: cooperative, healthy appearing and no acute distress Nutritional Appearance: well nourished Orientation: alert, oriented x3 and oriented to person Head Head: normal to inspection, normocephalic and atraumatic Nose: external nose normal Face and Sinus: face symmetric Mouth: oral mucosae normal Eyes General: appearance normal, both eyes and all related structures Eyelids: eyelids normal Conjunctivae: conjunctivae normal Pupils: PERRL and normal by confrontation EOM: EOM intact bilaterally Neck Neck: normal visual inspection and full ROM Carotids: normal carotid upstroke Chest Chest inspection: normal inspection of the chest Auscultation: Bilateral: Clear to Auscultation Cardio Palpation: normal PMI Rate: regular rate Rhythm: regular rhythm Heart sounds: S1 normal and S2 normal GI GI: normal to inspection, no hepatosplenomegaly and bowel sounds present Neuro General: alert, awake, oriented x3, CN's II-XI intact bilaterally and moves all extremities Skin Skin: no rashes or lesions noted Extremities Pulses: Normal: Right Femoral Pulse, Left Femoral Pulse, Right Dorsalis Pedis Pulse, Left Dorsalis Pedis Pulse, Right Posterior Tibial Pulse, Left Posterior Tibial Pulse, Right Radial Pulse, Left Radial Pulse Lower Extremity Edema: None: Bilateral Psych Psychological: normal affect Assessment & Plan 1. Atherosclerosis of coronary artery of [place] heart without angina pectoris I25.10 3.0 X 23 Promus to Ramus intermedius per Dr. Earline Roldan @ [facility] 03/15/2009 Plan 1. Coronary artery disease: The patient had extensive premature coronary artery disease most likely a result of extreme reaction to tobacco use over many years, who quit tobacco in 2008 at the time of his angioplasty and stenting and has not returned to it. Patient wishes to get into an exercise program, and to that end I recommended he undergo a surveillance treadmill echocardiogram to determine if he has any areas of ischemia particularly of the inferolateral wall. If this is grossly abnormal for ischemia, he may require a repeat diagnostic coronary angiogram to evaluate his previously placed stent, progression of disease of his LAD and circumflex. If however it is negative, I would recommend he proceed with exercise therapy to facilitate weight loss and cardiac health. In the meantime we will continue baby aspirin, losartan, and metoprolol. In addition given his LV dysfunction in the past I recommend a surveillance repeat 2D echo with Doppler to determine his LV function at this time, and more importantly to evaluate his pulmonary pressures for possibly undiagnosed obstructive sleep apnea. Orders Orders: 12 Lead EKG performed by [facility] Today Echo Complete Today Stress Test Echo w/o Contrast Today 2. Hyperlipidemia E78.5 Plan 2. Hyperlipidemia: Unfortunately the patient was unable to take statin based medications due to severe myalgias. I recommended he try gemfibrozil 6 and a milligrams p.o. twice daily and repeat lipid profile in 6 weeks time. Orders Orders: Echo Complete Today Stress Test Echo w/o Contrast Today 3. Daytime somnolence R40.0 Plan 3. Daytime somnolence: I recommended the patient be referred for a sleep study to determine if he has obstructive sleep apnea. If this is abnormal, he will require CPAP or BiPAP therapy and referral to pulmonary. 4. Obesity: I had a long and thorough discussion regarding the patient's weight, and encouraged him after his stress test is completed to engage into an exercise program and dietary management. Patient is voiced understanding, and will contemplate exercise therapy. 5. Return office in 6 months. This note was generated using a voice recognition system and there may be incorrect words, spelling or punctuation that were not noted when reviewing the office note prior to saving. Orders Orders: Polysomnography Today Plan Detail Other Orders Orders: 12 Lead EKG performed by [facility] Today Z95.5 Lipid Profile 6 Weeks E78.00 Liver Profile 6 Weeks E78.00 Echo Complete Today I10, Z95.5, Z98.890 Stress Test Echo w/o Contrast Today I10, Z95.5, Z98.890 Other Medications New: gemfibrozil 600 mg PO BID 60 tabs 11RF Follow Up +6M (Velez) Coding Level of Care Code Off vis,new,level 4 Diagnoses Atherosclerosis of coronary artery of [place] heart without angina pectoris I25.10 Hyperlipidemia E78.5 Daytime somnolence R40.0 Coding Level of Care Code Off vis,new,level 4 Diagnoses Atherosclerosis of coronary artery of [place] heart without angina pectoris I25.10 Hyperlipidemia E78.5 Daytime somnolence R40.0 Supplemental Info Supplemental Information Diagnostics Stress Test Nuclear Medicine 11/25/17 Stress Test 11/25/17 08/04/19 1539 <Electronically signed by Adebayo Velez MD> Date _ Adebayo Velez MD
[2019-09-01 07:04] VITALS: BMI 46.0
[2019-09-21 09:29] VITALS: BMI 34.0
[2019-09-21 11:05] LABS: Bacteria 0 SEEN /hpf (None Seen); Mucous, Urine 0 SEEN /hpf (<or=2+); Red Blood Cells-Urine 0 SEEN /hpf (0-5); White Blood Cells 0 SEEN /hpf (0-5)
[2019-09-21 11:45] LABS: Color, Urine Yellow (Yellow); Glucose, Dipstick Normal (Normal); Ketone-Dipstick 5 mg/dl (Negative); Leukocyte Esterase-Dipstick Negative /ul (Negative); Nitrite-Dipstick Negative (Negative); Occult Blood-Urine Negative /ul (Negative); Protein-Dipstick Negative (Negative); Urine Bilirubin Dipstick Negative (Negative); Urine Clarity Sl. Cloudy (Clear); Urine Urobilinogen Normal (Normal)
[2019-09-21 11:47] LABS: Hematocrit 47.4 % (40-54); Hemoglobin 15.4 g/dL (13.0-16.5); Mean Corp Hgb Conc 32.5 g/dL (32-36); Mean Corpuscular Hgb 28.5 pg (27.0-32.0); Mean Corpuscular Volume 87.6 fL (80-94); Mean Platelet Vol. 9.2 fl (6.2-12.0); Platelet Count 324 K/mm3 (150-450); RBC Distribution Width CV 13.3 % (11.6-14.6); RBC Distribution Width SD 42.4 fl (35.1-43.9); Red Blood Count 5.41 M/mm3 (4.6-6.2); White Blood Count 6.7 K/mm3 (4.4-11.0)
[2019-09-21 11:57] LABS: Prothrombin Time (Protime)PT. 13.2 SECONDS (11.7-14.9)
[2019-09-21 11:59] LABS: Squamous Epithelial Cells - UA 0-5 SEEN /hpf (0-5)
[2019-09-21 12:07] LABS: Anion Gap 4 (5-15); BUN 20 mg/dL (7-18); BUN/Creat Ratio 18.3 RATIO (10-20); Calcium,Total 9.8 mg/dL (8.5-10.1); Chloride 105 mmol/L (98-107); Creatinine, Serum 1.09 mg/dL (0.70-1.30); EST Glomerular Filtration Rate 75 mL/min (>60); Est Glom Filt Rate - Afr Amer 91 mL/min (>60); Glucose 108 mg/dL (74-106); Sodium Level 137 mmol/L (136-145)
[2019-09-21 12:41] LABS: AST(SGOT) 24 U/L (15-37); Alanine Aminotransfer ALT/SGPT 44 U/L (16-61); Albumin, Serum 4.1 g/dL (3.2-5.0); Alkaline Phosphatase 62 U/L (45-117); Bilirubin, Direct 0.17 mg/dL (0.00-0.30); Cholesterol 183 mg/dL (200); Globulin 3.9 g/dL (2.2-4.2); High Density Lipoprotein 38 mg/dL; Triglycerides 63 mg/dL; Very Low Density Lipoprotein 13 mg/dL (5-40)
[2019-09-23 12:43] VITALS: BMI 34.0
[2019-09-24] VITALS (12 sets, daily range): BP systolic 104–129; BP diastolic 54–71; PULSE 74–87; RESP 14–18; TEMP 36.7–36.9; O2SAT 94–98
--- NOTE | 2019-09-24 10:35 | HP.PCM_ITS ---
History and Physical Date of Admission: 09/24/19 Mr. Irwin is a very pleasant 54-year-old gentleman that presents here today to have an ICD placed. He is a previous [id number] smoker who quit at age 43, nondiabetic, former patient Dr. Kaur, with a history of obesity, hypertension, hypercholesterolemia, coronary artery disease who presented on 03/15/2009 with unstable anginal symptoms and underwent left heart catheterization by Dr. Pardo on 03/15/2009 at [facility]. At that time he was found to have an angiographically normal left main, mild to moderate diffuse disease of his LAD, mild diffuse disease of his left circumflex, a high-grade proximal stenosis in his ramus intermedius, and a chronically subtotally occluded right coronary artery with [id number] collaterals and reduced LV function. The patient underwent successful heparin and Integrilin-assisted angioplasty and stenting on 03/15/2009 at [facility] by Dr. Dunbar receiving a 3.0X 23 Promus drug-eluting stent to the proximal ramus intermedius. His right coronary was left for medical management. Patient was treated medically. Patient did complete cardiac rehab but does not formally exercise. He then followed up with Dr. Gillespie, and had a stress test on 11/25/2017 exercising 6 minutes, 7.4 METS, with upsloping ST segment changes which did not meet criteria, and a small minimal area of inferoapical ischemia. No additional catheterization was performed. In addition on 06/09/2018 patient underwent a 2D echo with Doppler at the [facility] [place] which demonstrated an EF around 54%, grade 1 diastolic dysfunction, mildly dilated left ventricle and mild global LV dysfunction. Unfortunately the patient was unable to take pravastatin due to myalgias. He is on omega-3 fatty acids. He is currently on baby aspirin, losartan and metoprolol. He underwent an echocardiogram on 08/21/2019 that showed reduced ejection fraction at 35%. In conjunction with abnormal ECG, previous coronary artery disease and stent placement, and abnormal stress test and May 2019 he underwent a heart catheterization to assess further. His heart catheterization 09/02/2019 showed nonobstructive coronary artery disease and chronically known occlusion of RCA. Ejection fraction was noted to be 20-25%. It was recommended due to reduced ejection fraction below 35% to undergo preventative AICD. He denies chest, arm, jaw, or neck discomfort. His exercise tolerance is stable. He denies symptoms of CHF, palpitations, lightheadedness, dizziness, near syncope, or syncopal episodes. He denies edema or claudication issues. He denies orthopnea, PND, fever, chills, blood in urine, blood in stool, myalgia, or unexplainable fatigue. 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: No Is patient in pain?: No Allergies pravastatin Adverse Reaction (Severe, Verified 09/21/19 09:29) Myalgias Medications metoprolol succinate 25 mg tablet,extended release 24 hr 25 mg PO DAILY 07/29/19 [History Confirmed 09/01/19] multivitamin 1 tab PO DAILY 07/29/19 [History Confirmed 09/01/19] omega-3 fatty acids 1,000 mg capsule 1,000 mg PO DAILY 07/29/19 [History Confirmed 09/01/19] aspirin 81 mg tablet,delayed release 81 mg PO DAILY 08/04/19 [History Confirmed 09/01/19] garlic 1,000 mg capsule 1,000 mg PO DAILY cap 08/04/19 [History Confirmed 09/01/19] gemfibrozil 600 mg tablet 600 mg PO BID #60 tab 08/04/19 [Rx Confirmed 09/01/19] turmeric root extract 500 mg capsule 500 mg PO DAILY 08/04/19 [History Confirmed 09/01/19] clopidogrel 75 mg tablet 75 mg PO DAILY #30 tab 08/24/19 [Rx Confirmed 09/01/19] losartan 50 mg tablet 50 mg PO BID #180 tab 09/02/19 [Rx Confirmed 09/02/19] [facility] Medical History (Updated 09/21/19 @ 11:04 by CALEB HendrixC) Dilated cardiomyopathy (Chronic) Abnormal EKG (Acute) Severe left ventricular systolic dysfunction (Acute) Abnormal echocardiogram (Acute) Family history of ischemic heart disease (Chronic) Atherosclerosis of coronary artery of belk[place]ski heart without angina pectoris (Chronic) Essential hypertension (Chronic) Hyperlipidemia (Chronic) Surgical History (Updated 09/02/19 @ 09:38 by Ines Hernandez) History of right and left heart catheterization (LHC) (Chronic 09/02/19) Stented coronary artery (Chronic 03/15/09) History of left heart catheterization (Chronic 03/15/09) Social History (Updated 09/21/19 @ 11:08 by PATY Hendrix) Smoking Status: Former smoker quit date: 03/15/09 ROS Const Const: Negative for fatigue, weakness, body ache, fever(s) or chills ENT ENT: Negative for dizziness Cardio Chest Pain: No Palpitations: No Edema: None Muscle aches with walking: None Resp Respiratory: Negative for SOB with activity, SOB at rest, SOB orthopnea\SOB lying down or paroxysmal nocturnal dyspnea GI GI: Negative nausea, vomiting blood/hematemesis, bright, red blood in stools or black,tarry stools : Negative for hematuria or frequent nighttime urination/ nocturia Musc Musc: Negative for muscle aches/ myalgia Skin Skin: Negative non-healing lesions or rash Neuro Neuro: Negative for dizziness, lightheadedness, near syncope, syncope, orthostatic symptoms or weakness Endo Endo: Negative for fatigue Allergy Allergy/Immunology: Negative for rash Cardiology Exam Const Appearance: cooperative, healthy appearing, comfortable and no acute distress Nutritional Appearance: well nourished and obese Orientation: alert, awake and oriented x3 Head Head: normal to inspection Ears: hearing grossly normal bilaterally Nose: external nose normal Face and Sinus: face symmetric Mouth: oral mucosae normal Eyes General: appearance normal, both eyes and all related structures Eyelids: eyelids normal EOM: EOM intact bilaterally Neck Neck: normal visual inspection and no JVD Carotids: normal carotid upstroke Chest Chest inspection: normal inspection of the chest, symmetric chest movement and normal respiratory effort; negative cough Auscultation: Bilateral: Clear to Auscultation Cardio Rate: regular rate Rhythm: regular rhythm Heart sounds: S1 normal and S2 normal; negative rub, gallop or murmur GI GI: normal to inspection and obese Neuro General: alert, awake, oriented x3 and CN's II-XI intact bilaterally Skin Skin: no rashes or lesions noted Extremities Pulses: Normal: Right Posterior Tibial Pulse, Left Posterior Tibial Pulse, Right Radial Pulse, Left Radial Pulse Lower Extremity Edema: None: Bilateral Psych Psychological: normal affect Assessment & Plan 1. Atherosclerosis of coronary artery of belkofski heart without angina pectoris I25.10 3.0 X 23 Promus to Ramus intermedius per Dr. Earline Roldan @ [facility] 03/15/2009 As in above, his heart catheterization revealed nonobstructive coronary artery disease and chronically occluded RCA in August 2019. He is currently on metoprolol, losartan, aspirin, Plavix, and gemfibrozil. He will continue current medical therapy. He will continue risk factor and lifestyle modification. 2. Stented coronary artery Z95.5 3.0 X 23 Promus to Ramus intermedius per Dr. Earline Roldan @ [facility] 03/15/2009 He will continue current medical therapy. 3. Ischemic cardiomyopathy I25.5 Patient's echocardiogram from August 2019 showed ejection function of 35-40%. His most recent heart catheterization in August 2019 post echocardiogram showed ejection fraction 20-25%. He will continue current NILAY inhibitor and ARB. He will continue risk factor lifestyle modification. Due to his reduced ejection fraction it was recommended he undergo preventative AICD. This will be done today. He will follow in office accordingly.T A SDM interaction occurred at this visit using an SDM tool prior to initial implant of ICD. 4. Essential (primary) hypertension I10 Patient's blood pressure is well-controlled. We will continue to monitor. We will not make any medication regimen changes. 5. Hyperlipidemia, unspecified hyperlipidemia type E78.5 He will continue current cholesterol-lowering medication.
--- NOTE | 2019-09-24 11:59 | OP.PCM_ITS ---
Report of Operation Date of Procedure: 09/24/19 Description of Surgical Findings:: Preoperative diagnosis implantation of primary prevention ICD for ischemic CM EF 25% and NYHA Class II; Insertion of VVI ICD Postoperative diagnosis same as above After informed consent and IV antibiotics the patient was brought to the [facility] laboratory. The left side of the chest was prepped and draped in the usual sterile manner. The patient was sedated with intermittent boluses of IV Versed fentanyl and propofol as well as subcutaneous 1% lidocaine. An incision was made inferior to the clavicle to accommodate the size of the hardware device. The pocket was created using blunt and Bovie dissection. Hemostasis was obtained. Using the Seldinger technique the axillary vein was cannulated once and a guidewire was advanced under fluoroscopic guidance. Over the guidewire a sheath was advanced. Through this sheath, the electrode was positioned under fluoroscopic guidance into the right ventricle and was actively fixated. Once actively fixated, the lead was tested to check for proper sensing, capture threshold, impedance and to exclude diaphragmatic stimulation. Once the lead was implanted and all electrical parameters were confirmed to be functioning normally with appropriate values, the leads was then sutured to the pectoralis muscle with 2-0 silk on the Silastic collar ?2. The sponge and needle count were correct. Hemostasis was obtained. Antibiotic solution was used to flush the pocket. The new device was brought to the field. The lead was placed in the appropriate position of the header of the device and were secured by the setscrews and confirmed by the tug test. The device and the leads were then placed in the pocket. Pocket was closed with a deep layer of running 2-0 Vicryl, superficial layer of running 4-0 Vicryl and skin with Steri- Strips that were covered with a rolled 4 x 4's and Tegaderm. The patient left the lab with the device programmed to chronic parameters. There were no complications. Device is a VVI ICD [employer] Lead and device serial and model numbers are available in the chart documents provided by the device company herbicide service sales representative procedure summary.
[2019-09-24] MEDS: Acetaminophen 325 MG Tablet PO ×2 (14:29→21:16)
--- NOTE | 2019-09-24 16:19 | RAD_ITS ---
STUDY: X-RAY CHEST REASON FOR EXAM: Male, 54 years old. PACER INSERT, TECHNIQUE: Single AP portable view of the chest. COMPARISON: 08/24/2019. FINDINGS: The lungs are clear and expanded. There is no demonstrated pleural abnormality. Normal size heart. Single-lead pacemaker terminates in the right atrium. Normal mediastinum and paul. Normal visualized pulmonary arteries. Normal visualized aortic arch and descending thoracic aorta. Normal visualized thoracic spine. Normal visualized ribs, clavicles, and shoulders. There is no demonstrated abnormality of the visualized soft tissue structures of the upper abdomen. RAD/Chest 1 View (Portable) IMPRESSION: No definite acute or significant abnormality seen. Electronically Signed: Jarad Marc MD at 16:43 EST , Service support ,
[2019-09-24] MEDS: Zolpidem Tartrate 5 MG Tablet PO (21:16)
[2019-09-24] MEDS: Gemfibrozil 600 MG Tablet PO (21:17)
[2019-09-24] MEDS: Losartan Potassium 50 MG Tablet PO (21:17)
[2019-09-25 02:55] VITALS: BP 108/64; PULSE 82; RESP 16; TEMP 36.7; O2SAT 94
[2019-09-25 03:04] VITALS: PULSE 86
--- NOTE | 2019-09-25 05:55 | RAD_ITS ---
STUDY: X-RAY CHEST REASON FOR EXAM: Male, 54 years old. s/p pacer insert TECHNIQUE: Frontal and lateral views of the chest. COMPARISON: Same day FINDINGS: Single chamber defibrillator on the left, lead in stable position. The lungs are clear and expanded. There is no demonstrated pleural abnormality. Stable cardiomediastinal silhouette. Normal mediastinum and paul. Normal visualized pulmonary arteries. Normal visualized aortic arch and descending thoracic aorta. Normal visualized thoracic spine. Normal visualized ribs, clavicles, and shoulders. There is no demonstrated abnormality of the visualized soft tissue structures of the upper abdomen. RAD/Chest PA and Lateral IMPRESSION: No acute pulmonary findings. Electronically Signed: Red Van MD at 5:21 EST Tel , Service support ,
[2019-09-25 06:14] LABS: Hematocrit 45.8 % (40-54); Hemoglobin 14.9 g/dL (13.0-16.5)
[2019-09-25 06:36] LABS: Anion Gap 7 (5-15); BUN 18 mg/dL (7-18); BUN/Creat Ratio 16.8 RATIO (10-20); Chloride 102 mmol/L (98-107); Creatinine, Serum 1.07 mg/dL (0.70-1.30); EST Glomerular Filtration Rate 77 mL/min (>60); Est Glom Filt Rate - Afr Amer 93 mL/min (>60); Estimated Creatinine Clearance 72.88 ml/min; Glucose 97 mg/dL (74-106); Potassium 3.9 mmol/L (3.5-5.1); Sodium Level 136 mmol/L (136-145)
[2019-09-25 07:00] VITALS: PULSE 87
--- NOTE | 2019-09-25 07:26 | DCINST_ITS ---
Discharge Diet: No Restrictions Discharge Activity: May Not Drive Call your doctor if your incision/area has: Continuous Slow Oozing, Sudden Increased Bleeding, Increased Pain/ Swelling, Increased Redness, Foul Smelling Discharge, Swelling at the incision site Call your doctor if you observe: Fever of 101 or Higher, Shortness of breath, Dizziness, Fainting spells, Swelling in the ankles, Chest pain, Prolonged hiccoughing, Increased palpitations (irregular heartbeat) Suture Line Care: Avoid Pulling/Pushing, Avoid Pinching/Bending Cleanse incision/area with: Do not get Incision Wet, Keep Dressing Clean & Dry Additional Dressing/Incision Instructions:: When dressing is removed, wash and dry incision. Keep covered with a light bandage if it is rubbing against your clothing. Do not cover the incision with an airtight bandage. Change the bandage daily. Do not remove steri strips. The strips will fall off on their own. Additional Instructions: Signs and Symptoms to Report to Your Doctor at Once - call your doctor's office or Doctor's Registry ([phone]) Call 911 or go to the nearest Emergency Department if you feel you need urgent care. *Infection (fever, increased redness or swelling at the incision site, drainage from the incision increased pain at the pacemaker site) *Shortness of breath *Dizziness *Fainting spells *Swelling in the ankles *Chest pain *Prolonged hiccoughing *Increased palpitaitons (irregular heartbeat) Medications: Take your pain medication as directed. Refer to your discharge instruction sheet for a list of medications you are to take. Allergies/Adverse Reactions: Allergies pravastatin Adverse Reaction (Severe, Verified 09/21/19 09:29) Myalgias Medications to take at Discharge multivitamin 1 tab PO DAILY 07/29/19 omega-3 fatty acids 1,000 mg capsule 1,000 mg PO DAILY 07/29/19 aspirin 81 mg tablet,delayed release 81 mg PO DAILY 08/04/19 garlic 1,000 mg capsule 1,000 mg PO DAILY cap 08/04/19 gemfibrozil 600 mg tablet 600 mg PO BID #60 tab 08/04/19 turmeric root extract 500 mg capsule 500 mg PO DAILY 08/04/19 losartan 50 mg tablet 50 mg PO BID #180 tab 09/02/19 metoprolol succinate 25 mg tablet,extended release 24 hr 25 mg PO DAILY #90 tab 09/22/19 Primary Care Physician: Freddy Dsouza MD [Primary Care Provider] - Test Results: Test results from this visit will be discussed in further detail at your follow- up appointment, if applicable. Please Follow Up With: PACER CLINIC PER DATE Proposed Discharge Date: 09/25/19
[2019-09-25 08:40] VITALS: BP 133/81; PULSE 96; RESP 16; TEMP 36.7; O2SAT 94
--- NOTE | 2019-09-25 08:40 | PN.CARD_ITS ---
Subjectve: Patient seen and examined, chest x-ray reviewed. No evidence of pneumothorax, and defibrillator appears to be placed within the right ventricle. Pacemaker interrogation performed by Tamra this morning showed no abnormalities. Patient doing well and denies any fevers chills or overt pain. Telemetry showed normal sinus rhythm with rare PVC. Objective: Vital Signs Temp Pulse Resp BP Pulse Ox 98.0 F 87 16 108/64 94 09/25/19 02:55 09/25/19 07:00 09/25/19 02:55 09/25/19 02:55 09/25/19 02:55 Oxygen Flow Rate (L/min) 2 Oxygen Delivery Method Room Air Weight: 211 lb Body Mass Index (BMI) 34.0 Intake and Output for Last 24 Hours 09/23/19 09/24/19 09/25/19 23:59 23:59 23:59 Intake Total 640 / 640 120 / 120 Output Total 350 / 350 500 / 500 Balance 290 / 290 -380 / -380 General: Awake, Alert, Oriented x 3 HEENT: PERRL, EOMI, Sclera Non Icteric Neck: Supple, Good ROM, No Lymph Node Enlargement Lungs: Clear to auscultation Cardiovascular: Regular Rhythm, Normal S1, Normal S2, No Murmurs, No Rubs, No Gallops 09/25/19 05:36: Sodium 136, Potassium 3.9, Chloride 102, Carbon Dioxide 27.0, Anion Gap 7, BUN 18, Creatinine 1.07, Est GFR (MDRD) Af Amer 93, Est GFR (MDRD) Non-Af 77, BUN/Creatinine Ratio 16.8, Glucose 97, Calcium 9.0 09/25/19 05:36: Hgb 14.9, Hct 45.8 Rhythm: EKG: ECHO: Stress Test: Cardiac Cath: PCI: CT Surgery: Holter monitor: EPS: PPM: CXR: Chest CT Scan: Medical Necessity - Tobacco Use Smoking Status: Former smoker Assessment/Plan 1. LV dysfunction: The patient status post AICD placement, and doing fairly well. His chest x-ray is negative. Patient's defibrillator was interrogated this morning and is doing well. Patient may be discharged home and follow-up in our office per protocol. No medical changes needed at this time. Code Visit Inpatient E&M: 70850 [facility] L2
[2019-09-25 08:46] VITALS: PULSE 96
[2019-09-25] MEDS: Losartan Potassium 50 MG Tablet PO (08:46)
[2019-09-25] MEDS: Aspirin E.C. 81 MG Tablet PO (08:46)
[2019-09-25] MEDS: Multivitamins,Therapeutic Tablet 1 TABLET PO (08:46)
[2019-09-25] MEDS: Gemfibrozil 600 MG Tablet PO (08:46)
[2019-09-25] MEDS: Omega-3 Acid Ethyl Esters 1 GM Capsule PO (08:46)
[2019-09-25] MEDS: Metoprolol(XL)Succ 50 MG Tablet PO (08:46)
--- NOTE | 2019-09-25 11:07 | PHA.DC.MR ---
Pharmacy Service has performed discharge medication reconciliation for this patient. PT STARTED ON METOPROLOL SUCCINATE 50MG PO DAILY YESTERDAY, NURSE LÁZARO HAS ALREADY PAGED DR. GRACE REGARDING NEED FOR NEW SCRIPT. Home Medications multivitamin 1 tab PO DAILY 07/29/19 omega-3 fatty acids 1,000 mg capsule 1,000 mg PO DAILY 07/29/19 aspirin 81 mg tablet,delayed release 81 mg PO DAILY 08/04/19 garlic 1,000 mg capsule 1,000 mg PO DAILY cap 08/04/19 gemfibrozil 600 mg tablet 600 mg PO BID #60 tab 08/04/19 turmeric root extract 500 mg capsule 500 mg PO DAILY 08/04/19 losartan 50 mg tablet 50 mg PO BID #180 tab 09/02/19 metoprolol succinate 25 mg tablet,extended release 24 hr 25 mg PO DAILY #90 tab 09/22/19 The patient's discharge medication list was reviewed for discrepancies and discrepancies were resolved.
== END 2019-09-25 07:27 | disposition home or self-care (01) ==
LOC: CLSP 09:49 → PCU 09-25 10:33
PROVIDERS: Internal Medicine Cardiovascular Disease; Family Provider Family Medicine; PCP Family Medicine; Referring Provider Internal Medicine Cardiovascular Disease; Visit Provider Internal Medicine Cardiovascular Disease
DX: I25.10 Atherosclerotic heart disease of native coronary artery without angina pectoris (principal); I25.5 Ischemic cardiomyopathy; I10 Essential (primary) hypertension; E78.5 Hyperlipidemia, unspecified; Z95.5 Presence of coronary angioplasty implant and graft; Z87.891 Personal history of nicotine dependence; E66.9 Obesity, unspecified; Z68.34 Body mass index [BMI] 34.0-34.9, adult; Z79.82 Long term (current) use of aspirin; Z82.49 Family history of ischemic heart disease and other diseases of the circulatory system
CPT/HCPCS: 33249; 36415; 71045; 71046; 80048; 80061; 80076; 81001; 85014; 85018; 85027; 85610; 93641; 99152; 99153; J7040; J7050; C1894; J2405

== ENCOUNTER → 2019-10-29 20:34 | Outpatient (CLI) | payer OTHER, SELFPAY ==
[2019-09-23 12:43] VITALS: BMI 34.0
== END ==
PROVIDERS: PCP Family Medicine; Referring Provider Nurse Practitioner Acute Care; Visit Provider Nurse Practitioner Acute Care
DX: G47.33 Obstructive sleep apnea (adult) (pediatric) (principal)
CPT/HCPCS: 95811

== ENCOUNTER → 2019-12-10 13:00 | Outpatient (CLI) | payer OTHER, SELFPAY ==
[2019-09-23 12:43] VITALS: BMI 34.0
== END ==
PROVIDERS: PCP Family Medicine; Visit Provider Nurse Practitioner Acute Care
DX: G47.33 Obstructive sleep apnea (adult) (pediatric) (principal)

== ENCOUNTER → 2021-04-18 14:48 | Outpatient (CLI) | payer OTHER, SELFPAY ==
--- NOTE | 2021-04-18 14:54 | RAD_ITS ---
INDICATION: achilles tendonitis right leg EXAMINATION/TECHNIQUE: X-RAY - RIGHT XR Ankle Min 3 Views 3 VIEWS COMPARISON: None. FINDINGS: SOFT TISSUES: No soft tissue swelling or gas. No radiopaque foreign body. BONES/JOINTS: The ankle mortise is maintained, increased density along the articular surface, no evidence of cortical irregularity or lucencies to suggest fractures. The talar dome is unremarkable. No evidence of bimalleolar fracture is visualized. Subtle inferior calcaneal spur and tendon enthesopathy is seen. RAD/Ankle min 3 Views IMPRESSION: Degenerative changes, no acute osseous abnormality is seen. Electronically Signed: Robert Menjivar MD at 16:28 EDT Tel , Service support ,
== END ==
PROVIDERS: PCP Family Medicine; Referring Provider Family Medicine; Visit Provider Family Medicine
DX: M76.61 Achilles tendinitis, right leg (principal)
CPT/HCPCS: 73610

== ENCOUNTER → 2022-09-11 | Outpatient (CLI) | payer OTHER, SELFPAY ==
[2022-09-11 10:55] LABS: AST(SGOT) 25 U/L (15-37); Alanine Aminotransfer ALT/SGPT 47 U/L (16-61); Albumin, Serum 3.8 g/dL (3.2-5.0); Alkaline Phosphatase 73 U/L (45-117); Bilirubin, Direct 0.14 mg/dL (0.00-0.30); Cholesterol 201 mg/dL (200); Globulin 3.9 g/dL (2.2-4.2); High Density Lipoprotein 41 mg/dL; Protein, Total 7.7 g/dL (6.4-8.2); Triglycerides 81 mg/dL; Very Low Density Lipoprotein 16 mg/dL (5-40)
== END | disposition home or self-care (01) ==
LOC: LAB 09:31
PROVIDERS: Nurse Practitioner Family; PCP Family Medicine; Referring Provider Internal Medicine Cardiovascular Disease; Visit Provider Internal Medicine Cardiovascular Disease
DX: I25.10 Atherosclerotic heart disease of native coronary artery without angina pectoris (principal); I42.0 Dilated cardiomyopathy; I10 Essential (primary) hypertension; E78.5 Hyperlipidemia, unspecified
CPT/HCPCS: 36415; 80061; 80076

== ENCOUNTER 2023-02-07 20:35 | Inpatient (IN) | payer OTHER, SELFPAY ==
[2023-02-07 20:37] VITALS: BP 91/63; PULSE 124; RESP 18; TEMP 36.6; O2SAT 93; BMI 44.9
[2023-02-07 21:05] VITALS: BP 88/54; PULSE 117; RESP 25; O2SAT 93
[2023-02-07 21:09] LABS: Hematocrit 38.4 % (40-54); Mean Corp Hgb Conc 33.9 g/dL (32-36); Mean Corpuscular Hgb 29.6 pg (27.0-32.0); Mean Corpuscular Volume 87.5 fL (80-94); Mean Platelet Vol. 9.2 fl (6.2-12.0); POSITIVE COUNT YES; POSITIVE MORPHOLOGY YES; Platelet Count 305 K/mm3 (150-450); RBC Distribution Width CV 13.4 % (11.6-14.6); RBC Distribution Width SD 43.3 fl (35.1-43.9); Red Blood Count 4.39 M/mm3 (4.6-6.2)
--- NOTE | 2023-02-07 21:09 | EDS_ITS ---
HPI History of Present Illness Chief Complaint: Confusion [facility] Medical History Abnormal echocardiogram Abnormal EKG Atherosclerosis of coronary artery of [place] heart without angina pectoris BMI 34.0-34.9,adult Dilated cardiomyopathy Essential hypertension Family history of ischemic heart disease Hyperlipidemia KATIA (obstructive sleep apnea) Severe left ventricular systolic dysfunction Type 2 diabetes mellitus Home Medications multivitamin 1 tab PO DAILY 07/29/19 [History Last Taken 09/02/19] aspirin 81 mg tablet,delayed release (Adult Aspirin Regimen) 81 mg PO DAILY 08/04/19 [History Last Taken 09/02/19] turmeric root extract 500 mg capsule 500 mg PO DAILY 08/04/19 [History Last Taken Unknown] omega-3 fatty acids 1,000 mg capsule 1,000 mg PO DAILY 09/11/22 [History Last Taken Unknown] metoprolol succinate 50 mg tablet,extended release 24 hr 50 mg PO DAILY #90 tabs 10/30/22 [Rx Last Taken Unknown] losartan 50 mg tablet 50 mg PO BID #180 tabs 11/05/22 [Rx Last Taken Unknown] cholecalciferol (vitamin D3) 50 mcg (2,000 unit) capsule 50 mcg PO DAILY 01/08/23 [History Last Taken Unknown] furosemide 40 mg tablet (Lasix) 40 mg PO DAILY #90 tabs 01/08/23 [Rx Last Taken Unknown] metformin 1,000 mg tablet mg 02/07/23 [History Last Taken Unknown] metronidazole 500 mg tablet 250 mg PO BID 02/07/23 [History Last Taken Unknown] oxycodone 5 mg tablet 5 mg PO Q6H PRN pain 3 days #9 tabs 02/07/23 [Rx Last Taken Unknown] Allergy/AdvReac Type Severity Reaction Status Date / Time tramadol Allergy Severe Other Verified 02/07/23 20:40 naproxen Allergy Intermediate PT UNSURE Verified 02/07/23 20:40 OF REACTION pravastatin AdvReac Severe Myalgias Verified 02/07/23 20:40 Family History Father Pacemaker Mother Atrial fibrillation Surgical History History of left heart catheterization (03/15/09) History of partial knee replacement (05/29/22) History of right and left heart catheterization (LHC) (09/02/19) Presence of implantable cardioverter-defibrillator (ICD) Stented coronary artery (03/15/09) Social History Smoking Status: Former smoker quit date: 03/15/09 alcohol intake: current alcohol intake frequency: holidays/special occasions only substance use type: does not use caffeine: Yes Type: coffee Number of servings: 2 EXAM Physical Exam Const Vital Signs: 02/07/23 20:37 02/07/23 21:05 02/07/23 21:38 Temperature 97.9 F Temperature Source Temporal Pulse Rate 124 H 117 H Respiratory Rate 18 25 H Blood Pressure 91/63 88/54 L Blood Pressure Mean 72 65 Pulse Ox 93 93 Oxygen Delivery Method Room Air Room Air Room Air Oxygen Flow Rate (L/min) 02/07/23 21:46 02/07/23 22:19 02/07/23 23:00 Temperature 97.3 F L 98 F Temperature Source Temporal Oral Pulse Rate 109 H 115 H 109 H Respiratory Rate 21 H 18 20 H Blood Pressure 88/58 L 90/58 L 102/92 H Blood Pressure Mean 68 68 95 Pulse Ox 97 98 Oxygen Delivery Method Room Air Room Air Oxygen Flow Rate (L/min) 02/07/23 23:00 02/08/23 00:00 Temperature Temperature Source Pulse Rate 109 H 107 H Respiratory Rate 20 H Blood Pressure 110/94 H Blood Pressure Mean 99 Pulse Ox 100 Oxygen Delivery Method Nasal Cannula Oxygen Flow Rate (L/min) 2 MDM MDM MDM Narrative Medical decision making narrative: HISTORY OF PRESENT ILLNESS: 57-year-old male here with acute onset of confusion. Per patient's he is more confused today not feeling well being lightheaded upon standing. Patient states he recently traveled from [place]. He denies any chest pain or shortness of breath. Denies any head trauma. Denies any focal weakness or numbness. Patient states he has had nausea and vomiting as well. States today he got a peritoneal abscess drained. Since then has been feeling worse. No penile pain. No scrotal pain. No perineal TTP REVIEW OF SYSTEMS: Pertinent positives: Confusion, diaphoresis, nausea vomiting Pertinent negatives: Focal weakness PHYSICAL EXAM: Nursing triage notes reviewed, Vital signs reviewed Constitutional: please see mdm HENT: MMM Eyes: Pupils equal round and reactive to light, Extraocular muscles intact Neck: No stridor, no JVD, full neck ROM Lungs: Clear to auscultation, No wheezing or rales. No increased work of breathing, no conversational dyspnea, no accessory muscle use, no nasal flaring. No respiratory distress noted Heart: Regular rate and rhythm, No murmurs, No rubs and No gallops, 2+ distal pulses (radial, femoral, posterior tibial) in all extremities Abdomen: Soft, there is no tenderness, rigidity, rebound or guarding, no obvious peritoneal signs, no palpable pulsatile abdominal masses, no auscultated abdominal bruit : No CVAT, no perineal tenderness, no perineal crepitus, normal-appearing genitalia, no penile tenderness. No penile crepitus. Rectal: (Performed with male infertility specialist) rectal exam without obvious rectal involvement there is no obvious fluctuance or induration with there is draining purulence coming from the rectal area Extremities: No edema Neuro: Patient is alert, oriented x3, strength in all 4 extremities, sensation all 4 extremities, no obvious coordination Skin: No rash or lesions noted MEDICAL DECISION MAKING: Chief Complaint: Confusion External records reviewed: Last ejection fraction 30 to 40% Factors affecting care: Type 2 diabetes,Congestive heart failure, dilated cardiomyopathy hypertension, hyperlipidemia Social determinants of health: none History obtained from others: The patient's Consults: Internal medicine ALL IMAGES (IF OBTAINED) HAVE BEEN PERSONALLY REVIEWED AND INTERPRETED BY MYSELF. [facility] Narrative: Patient was initially hypotensive, tachycardic tachypneic. Pale diaphoretic. Exam with draining rectal abscess which is a likely source of infection. Given the patient's abnormal vitals I did initiate sepsis protocol including a 30 cc/kg bolus of ideal body weight, blood cultures and broad-spectrum antibiotics. I ran the fluids slowly given history of heart failure ejection fraction of 40% I considered the following differential diagnosis: Sepsis, ICH, anemia, electrolyte normalities, acute kidney injury, dehydration, metabolic encephalopathy I obtained a CT scan of the head to rule out ICH, CT scan abdomen pelvis to further rule out the patient's CT of the abdomen pelvis shows no obvious drainable abscess, no evidence of Enid's gangrene. CT scan of the head was negative for ICH. I obtained a lactate and labs to rule out other signs of encephalopathy. Labs consistent with septic shock with an elevated lactate of 4.4, leukocytosis to 23,000, endorgan hypoperfusion in the form of acute kidney injury as well as NSTEMI. Patient did not complain of chest pain. His EKG had no ischemic changes. Elevation in troponin is likely secondary to demand ischemia. He was given aspirin for mortality benefit. There is no indication for catheterization or heparin at this time patient was continued resuscitated. Heart rate improved, blood pressure remained soft but stable. He did not require pressors at this time. Given the patient's elevated heart rate, hypotension, signs of septic shock he will require admission to the intensive care unit. I spoke with the hospitalist. At the hospitalist request I did speak to cardiology. Spoke to Dr. Olivier. He had no recommendations at this time. The patient and/or family, caregivers express understanding. The patient and/or family, caregivers agrees with the plan. Total critical care time today provided was at least 60 minutes. This excludes separately billable procedures. Critical care time (if documented) is secondary to the patient having high probability of clinically significant/life threatening deterioration in the patient's condition which required my urgent intervention. Shared decision making: I will have a discussion with the patient and or visitors regarding risk/benefits of further testing or admission. They will be made aware of of the risk/benefits inherent in this decision they will be given the opportunity to voice understanding. Lab Data Attestation: I reviewed the patient's lab results. Lab results narrative: CBC with marked leukocytosis suggestive of systemic inflammation, no anemia or thrombocytopenia There is no coagulopathy BMP with hyponatremia, hypokalemia, severe acute kidney injury Initial lactate elevated at 4.4 Initial troponin elevated consistent with endorgan hypoperfusion. This does not represent ACS in the setting of no chest pain and no EKG changes likely secondary to hypoperfusion from septic shock Labs: Laboratory Results - last 24 hr 02/07/23 02/07/23 02/07/23 20:50 20:50 20:50 WBC 23.0 H RBC 4.39 L Hgb 13.0 Hct 38.4 L MCV 87.5 MCH 29.6 MCHC 33.9 RDW Std Deviation 43.3 RDW Coeff of Jimy 13.4 Plt Count 305 MPV 9.2 Neut % (Auto) Not Reportable Absolute Neuts (auto) 19.3 H Absolute Lymphs (auto) 1.61 Total Counted 100 Neutrophils % (Manual) 67 Band Neutrophils % 17 H Lymphocytes % (Manual) 7 L Monocytes % (Manual) 5 Metamyelocytes % 4 H Diff Path Review May foll Platelet Estimate ADEQUATE RBC Morphology N CHROM Anisocytosis RARE PT 15.4 H INR 1.2 APTT 34.9 Sodium 134 L Potassium 3.4 L Chloride 98 Carbon Dioxide 23.0 Anion Gap 13 BUN 38 H Creatinine 4.38 H Estim Creat Clear Calc 17.82 Est GFR (MDRD) Af Amer 18 L Est GFR (MDRD) Non-Af 15 L BUN/Creatinine Ratio 8.7 L Glucose 172 H Lactic Acid Calcium 9.7 Total Bilirubin AST ALT Alkaline Phosphatase Troponin I High Sens Total Protein Albumin Globulin Albumin/Globulin Ratio POC Glucose 02/07/23 02/07/23 02/07/23 21:00 21:35 21:51 WBC RBC Hgb Hct MCV MCH MCHC RDW Std Deviation RDW Coeff of Jimy Plt Count MPV Neut % (Auto) Absolute Neuts (auto) Absolute Lymphs (auto) Total Counted Neutrophils % (Manual) Band Neutrophils % Lymphocytes % (Manual) Monocytes % (Manual) Metamyelocytes % Diff Path Review Platelet Estimate RBC Morphology Anisocytosis PT INR APTT Sodium 134 L Potassium 3.6 Chloride 100 Carbon Dioxide 22.0 Anion Gap 12 BUN 37 H Creatinine 4.51 H Estim Creat Clear Calc 17.30 Est GFR (MDRD) Af Amer 18 L Est GFR (MDRD) Non-Af 15 L BUN/Creatinine Ratio 8.2 L Glucose 189 H Lactic Acid 4.4 H* Calcium 9.3 Total Bilirubin 0.60 AST 70 H ALT 87 H Alkaline Phosphatase 100 Troponin I High Sens 2556 H* Total Protein 6.7 Albumin 2.5 L Globulin 4.2 Albumin/Globulin Ratio 0.6 L POC Glucose 159 H Radiography Diagnostic Testing: Clinical Impression(s) from Imaging Studies Abdomen/Pelvis CT 02/07/23 21:21 IMPRESSION: No pelvic mass. Electronically Signed: Tobin Forde DO at 22:34 EDT , ADDENDUM: 02/07/23 2343 IMPRESSION: undefined Brain CT 02/07/23 21:21 IMPRESSION: No acute intracranial pathology. Minimal paranasal sinus disease left sphenoid sinus. Electronically Signed: Tobin Forde DO at 22:26 EDT , Chest X-Ray 02/07/23 22:08 IMPRESSION: 1. No radiographic evidence of acute cardiopulmonary disease. Electronically Signed: Tobin Forde DO at 22:20 EDT , Discharge Plan Triage Chief Complaint: Confusion ED Provider: Baldemar Puga Dx/Rx/DC Orders Clinical Impression: Septic shock, Perianal abscess Primary Care Provider: Freddy Dsouza
[2023-02-07 21:11] LABS: Differential Indicated MANUAL DIFF
[2023-02-07 21:19] LABS: Bedside Glucose 159 mg/dL (74-106)
--- NOTE | 2023-02-07 21:21 | CT_ITS ---
INDICATION: pelvic mass EXAMINATION: CT ABDOMEN AND PELVIS WITHOUT CONTRAST - CT Abdomen And Pelvis W/O Contrast Injection TECHNIQUE: Helically acquired images were obtained of the abdomen and pelvis without oral or IV contrast. A radiation dose optimization technique was used for this scan. IV Contrast dosage and agent: None. Oral contrast: None. COMPARISON: Chest x-ray February 07, 2023. FINDINGS: Somewhat degraded quality exam with hands and arms in the x-ray beam path. LOWER CHEST: Lung bases are clear. Heart is upper limit of normal size. No pericardial effusion. There is mild gynecomastia. LIVER: Homogeneous. No focal mass. GALLBLADDER AND BILIARY TREE: No calcified gallstones. No gallbladder distension or wall edema. No intra- or extrahepatic biliary ductal dilation. PANCREAS: No focal cystic or solid mass. Moderate fatty replacement of the pancreas. SPLEEN: Normal size without focal cystic or solid mass. ADRENAL GLANDS: No nodules. KIDNEYS, URETERS and BLADDER: Normal renal size and position. No mass. No hydronephrosis. Bladder is unremarkable. PERITONEUM: No ascites or free air. No other fluid collection. BOWEL: No evidence of acute appendicitis. No abnormally distended bowel loops or air fluid levels. No wall thickening or mass. No focal inflammatory changes. LYMPH NODES: No enlarged mesenteric or retroperitoneal lymph nodes. No inguinal lymphadenopathy. VESSELS: Aorta is non-dilated. Mild intimal calcifications distal abdominal aorta. REPRODUCTIVE ORGANS: No prostate enlargement. ABDOMINAL WALL: No discrete abdominal or pelvic wall hernia. BONES: No lytic or blastic abnormality. Bridging ossifications posterior spinous processes T11 and T12. Mild degenerative changes bilateral sacroiliac joints and hips. L5-S1 disc height loss and vacuum disc phenomenon with posterior disc herniation. Multilevel mild degenerative endplate changes. CT/Abdomen/Pelvis without Cont IMPRESSION: No pelvic mass. Electronically Signed: Tobin Forde DO at 22:34 EDT ,
--- NOTE | 2023-02-07 21:21 | CT_ITS ---
INDICATION: confusion EXAMINATION: CT BRAIN - CT Head or Brain W/O Contrast Injection TECHNIQUE: Multiple axial images were obtained of the head without intravenous contrast. A radiation dose optimization technique was used for this scan. IV Contrast dosage and agent: None. COMPARISON: No prior head imaging. FINDINGS: BRAIN PARENCHYMA: No intra- or extra-axial hemorrhage. No intracranial mass or mass effect. Pate/white matter differentiation is maintained and there is no blurring of the basal ganglia. There is no hyperdense vessel. Posterior fossa structures are unremarkable. CSF SPACES: Appropriate for age. No hydrocephalus. Basal cisterns are patent. CALVARIUM, SKULL BASE, PARANASAL SINUSES AND MASTOID AIR CELLS: Intact calvarium and skull base. No fracture or osseous lesion. Minimal frothy secretions left sphenoid sinus. Paranasal sinuses are otherwise clear. Mastoid air cells and middle ears are clear. ORBITS: Both globes, extraocular muscles, optic nerves and retrobulbar fat appear unremarkable. ASPECTS Score for Acute Strokes: 10 CT/Brain/Head without Contrast IMPRESSION: No acute intracranial pathology. Minimal paranasal sinus disease left sphenoid sinus. Electronically Signed: Tobin Forde DO at 22:26 EDT ,
[2023-02-07 21:27] LABS: BUN 38 mg/dL (7-18); Glucose 172 mg/dL (74-106)
[2023-02-07 21:28] LABS: Anion Gap 13 (5-15); BUN/Creat Ratio 8.7 RATIO (10-20); Calcium,Total 9.7 mg/dL (8.5-10.1); Chloride 98 mmol/L (98-107); Creatinine, Serum 4.38 mg/dL (0.70-1.30); EST Glomerular Filtration Rate 15 mL/min (>60); Est Glom Filt Rate - Afr Amer 18 mL/min (>60); Estimated Creatinine Clearance 17.82 ml/min; Potassium 3.4 mmol/L (3.5-5.1); Sodium Level 134 mmol/L (136-145)
[2023-02-07] MEDS: 0.9% Normal Saline 1,000 ML 999 ML IV ×2 (21:29→23:51)
[2023-02-07 21:46] VITALS: BP 88/58; PULSE 109; RESP 21; TEMP 36.3
[2023-02-07 21:57] LABS: Lymphocyte 7 % (19-41); Metamyelocyte 4 % (0-1); Monocyte 5 % (0-10); Neutrophil-Band 17 % (0-5); Neutrophil-Segmented 67 % (47-70); Total Cells Counted 100 (MANUAL DIFF)
[2023-02-07 21:59] LABS: Absolute Lymphocyte Count 1.61 X10^3/uL (0.83-4.51); Absolute Neutrophil Count 19.3 X10^3/uL (2.0-7.7)
[2023-02-07 22:00] LABS: Anisocytosis RARE; Platelet Estimate ADEQUATE (ADEQ); Red Cell Morphology N CHROM NORMAL (NORM C&C)
--- NOTE | 2023-02-07 22:08 | RAD_ITS ---
INDICATION: confusion EXAMINATION/TECHNIQUE: X-RAY - XR Chest 1 View COMPARISON: Chest x-ray September 25, 2019. FINDINGS: LINES/DEVICES: Left chest single lead AICD with lead projecting over the right ventricle. LUNGS: Minimal asymmetric elevation right hemidiaphragm with normal lung volumes. No airspace opacity or abnormal interstitial pattern. No nodule or mass. No pleural effusion or pneumothorax. MEDIASTINUM AND CARDIOVASCULAR STRUCTURES: Normal size and contour of the cardiomediastinal silhouette. No evidence of pulmonary vascular congestion. BONES AND SOFT TISSUES: No fracture or focal osseous lesion. RAD/Chest 1 View (Portable) IMPRESSION: 1. No radiographic evidence of acute cardiopulmonary disease. Electronically Signed: Tobin Forde DO at 22:20 EDT ,
[2023-02-07 22:09] LABS: International Normalized Ratio 1.2; Prothrombin Time (Protime)PT. 15.4 SECONDS (11.7-14.9)
[2023-02-07 22:10] LABS: Partial Thromboplast Time 34.9 Seconds (24.1-36.2)
[2023-02-07 22:19] VITALS: BP 90/58; PULSE 115; RESP 18; O2SAT 97
[2023-02-07 22:19] LABS: Lactic Acid 4.4 mmol/L (0.4-1.9)
[2023-02-07 22:29] LABS: ALB/GLOB Ratio 0.6 RATIO (0.9-2.4); AST(SGOT) 70 U/L (15-37); Alanine Aminotransfer ALT/SGPT 87 U/L (16-61); Albumin, Serum 2.5 g/dL (3.2-5.0); Alkaline Phosphatase 100 U/L (45-117); Anion Gap 12 (5-15); BUN 37 mg/dL (7-18); BUN/Creat Ratio 8.2 RATIO (10-20); Calcium,Total 9.3 mg/dL (8.5-10.1); Chloride 100 mmol/L (98-107); Creatinine, Serum 4.51 mg/dL (0.70-1.30); EST Glomerular Filtration Rate 15 mL/min (>60); Est Glom Filt Rate - Afr Amer 18 mL/min (>60); Globulin 4.2 g/dL (2.2-4.2); Glucose 189 mg/dL (74-106); Potassium 3.6 mmol/L (3.5-5.1); Protein, Total 6.7 g/dL (6.4-8.2); Sodium Level 134 mmol/L (136-145); Troponin-I HS 2556 pg/mL (3.0-78.0)
[2023-02-07 23:00] VITALS: BP 102/92; PULSE 109; RESP 20; TEMP 36.6; O2SAT 98
--- NOTE | 2023-02-07 23:23 | HP.PCM.HOS_ITS ---
HPI - General General Date of Admission: 02/08/23 Date of Service: 02/08/23 Chief Complaint: Altered mental status HPI Narrative MALLY WILSON, is a 57 M with a significant history of morbid obesity; hypertension; diabetes mellitus; CAD status post stents; heart failure with pacemaker and ICD who presents to the emergency department with altered mental status that started on the same day of presentation. Associated symptoms is nausea, vomiting, diaphoresis, and rigors. Earlier on on the same day of presentation the patient had a rectal abscess drained. He was then placed on Flagyl. Reportedly patient has not tolerated a fro because of his nausea and vomiting. With his vomiting his Flagyl did not stay down. Of note patient was started on metformin 1000 mg twice daily and she had GI symptoms including diarrhea. Metformin was held for a few days and the dose was appropriately de-escalated. Family think that patient's symptoms snowballed from when he was prescribed the metformin. [facility] Medical History Abnormal echocardiogram Abnormal EKG Atherosclerosis of coronary artery of [place] heart without angina pectoris BMI 34.0-34.9,adult Dilated cardiomyopathy Essential hypertension Family history of ischemic heart disease Hyperlipidemia KATIA (obstructive sleep apnea) Severe left ventricular systolic dysfunction Type 2 diabetes mellitus Home Medications multivitamin 1 tab PO DAILY 07/29/19 [History Last Taken 09/02/19] aspirin 81 mg tablet,delayed release (Adult Aspirin Regimen) 81 mg PO DAILY 08/04/19 [History Last Taken 09/02/19] turmeric root extract 500 mg capsule 500 mg PO DAILY 08/04/19 [History Last Taken Unknown] omega-3 fatty acids 1,000 mg capsule 1,000 mg PO DAILY 09/11/22 [History Last Taken Unknown] metoprolol succinate 50 mg tablet,extended release 24 hr 50 mg PO DAILY #90 tabs 10/30/22 [Rx Last Taken Unknown] losartan 50 mg tablet 50 mg PO BID #180 tabs 11/05/22 [Rx Last Taken Unknown] cholecalciferol (vitamin D3) 50 mcg (2,000 unit) capsule 50 mcg PO DAILY 01/08/23 [History Last Taken Unknown] furosemide 40 mg tablet (Lasix) 40 mg PO DAILY #90 tabs 01/08/23 [Rx Last Taken Unknown] metformin 1,000 mg tablet mg 02/07/23 [History Last Taken Unknown] metronidazole 500 mg tablet 250 mg PO BID 02/07/23 [History Last Taken Unknown] oxycodone 5 mg tablet 5 mg PO Q6H PRN pain 3 days #9 tabs 02/07/23 [Rx Last Taken Unknown] Allergy/AdvReac Type Severity Reaction Status Date / Time tramadol Allergy Severe Other Verified 02/07/23 20:40 naproxen Allergy Intermediate PT UNSURE Verified 02/07/23 20:40 OF REACTION pravastatin AdvReac Severe Myalgias Verified 02/07/23 20:40 Family History Father Pacemaker Mother Atrial fibrillation Surgical History History of left heart catheterization (03/15/09) History of partial knee replacement (05/29/22) History of right and left heart catheterization (LHC) (09/02/19) Presence of implantable cardioverter-defibrillator (ICD) Stented coronary artery (03/15/09) Social History Smoking Status: Former smoker quit date: 03/15/09 alcohol intake: current alcohol intake frequency: holidays/special occasions only substance use type: does not use caffeine: Yes Type: coffee Number of servings: 2 ROS ROS Narrative Pertinent positives and pertinent negatives as noted in HPI. All other systems were reviewed and are negative Vital Signs Vital Signs Vital Signs: 02/07/23 20:37 02/07/23 21:05 02/07/23 21:38 Temperature 97.9 F Temperature Source Temporal Pulse Rate 124 H 117 H Respiratory Rate 18 25 H Blood Pressure 91/63 88/54 L Blood Pressure Mean 72 65 Pulse Ox 93 93 Oxygen Delivery Method Room Air Room Air Room Air 02/07/23 21:46 02/07/23 22:19 02/07/23 23:00 Temperature 97.3 F L 98 F Temperature Source Temporal Oral Pulse Rate 109 H 115 H 109 H Respiratory Rate 21 H 18 20 H Blood Pressure 88/58 L 90/58 L 102/92 H Blood Pressure Mean 68 68 95 Pulse Ox 97 98 Oxygen Delivery Method Room Air Room Air 02/07/23 23:00 Temperature Temperature Source Pulse Rate 109 H Respiratory Rate Blood Pressure Blood Pressure Mean Pulse Ox Oxygen Delivery Method Weight Weight: 130.2 kg Body Mass Index (BMI) 44.9 Physical Exam Narrative Physical exam: General: Well-nourished, well-developed. Head: Normocephalic, atraumatic, no tenderness Eyes: Vision is grossly intact. EOMI ENT, no trauma, moist mucous membranes, no rhinorrhea Neck: Nontender, No thyromegaly. CVS: Tachycardia. S1-S2 present. No murmur, gallop or rub. Respiratory : Tachypnea; clear to auscultation bilaterally, chest wall nontender Abdomen: Soft, nontender, nondistended, normal bowel sounds, no masses : Gallardo colored drainage from gluteal cleft Back: Nontender, no CVA tenderness Extremities: Nontender full range of motion, no trauma Skin: Normal color, no trauma, abrasions Neuro: Alert, oriented, cranial nerves II through XII grossly intact. Psychiatry: Normal mood. Normal affect. Not depressed. Not anxious. Results Lab / Micro Data Result Diagrams: 02/07/23 20:50 02/07/23 21:51 Labs: Laboratory Results - last 24 hr 02/07/23 20:50: WBC 23.0 H, RBC 4.39 L, Hgb 13.0, Hct 38.4 L, MCV 87.5, MCH 29.6, MCHC 33.9, RDW Std Deviation 43.3, RDW Coeff of Jimy 13.4, Plt Count 305, M PV 9.2, Neut % (Auto) Not Reportable, Absolute Neuts (auto) 19.3 H, Absolute Lymphs (auto) 1.61, Total Counted 100, Neutrophils % (Manual) 67, Band Neutrophils % 17 H, Lymphocytes % (Manual) 7 L, Monocytes % (Manual) 5, Metamyelocytes % 4 H, Diff Path Review December, Platelet Estimate ADEQUATE, RBC Morphology N CHROM, Anisocytosis RARE 02/07/23 20:50: Sodium 134 L, Potassium 3.4 L, Chloride 98, Carbon Dioxide 23.0, Anion Gap 13, BUN 38 H, Creatinine 4.38 H, Estim Creat Clear Calc 17.82, Est GFR (MDRD) Af Amer 18 L, Est GFR (MDRD) Non-Af 15 L, BUN/Creatinine Ratio 8.7 L, Glucose 172 H, Calcium 9.7 02/07/23 20:50: PT 15.4 H, INR 1.2, APTT 34.9 02/07/23 21:00: POC Glucose 159 H 02/07/23 21:35: Lactic Acid 4.4 H* 02/07/23 21:51: Sodium 134 L, Potassium 3.6, Chloride 100, Carbon Dioxide 22.0, Anion Gap 12, BUN 37 H, Creatinine 4.51 H, Estim Creat Clear Calc 17.30, Est GFR (MDRD) Af Amer 18 L, Est GFR (MDRD) Non-Af 15 L, BUN/Creatinine Ratio 8.2 L, Glucose 189 H, Calcium 9.3, Total Bilirubin 0.60, AST 70 H, ALT 87 H, Alkaline Phosphatase 100, Troponin I High Sens 2556 H*, Total Protein 6.7, Albumin 2.5 L, Globulin 4.2, Albumin/Globulin Ratio 0.6 L Radiology Impression Abdomen/Pelvis CT 02/07/23 21:21 IMPRESSION: No pelvic mass. Electronically Signed: Tobin Forde DO at 22:34 EDT , Brain CT 02/07/23 21:21 IMPRESSION: No acute intracranial pathology. Minimal paranasal sinus disease left sphenoid sinus. Electronically Signed: Tobin Forde DO at 22:26 EDT , Chest X-Ray 02/07/23 22:08 IMPRESSION: 1. No radiographic evidence of acute cardiopulmonary disease. Electronically Signed: Tobin Forde DO at 22:20 EDT , Assessment & Plan Assessment/Plan (1) Septic shock: (2) Perianal abscess: (3) Type 2 diabetes mellitus: (4) CHF (congestive heart failure): PLAN: Plan The patient presented with septic shock due to (perianal abscess) with acute sepsis related organ dysfunction as evidenced by ATN with creatinine more than 2; hypotension with systolic blood pressure less than 90; lactic acidosis with lactic acid more than 4.0.). SIRS criteria: Respiratory rate more than 20 Heart rate more than 90 WBC more than 12,000 (white count of 23,000) organ dysfunction: SBP less than 90 Creatinine more than 2 (4.38 in patient's case) Lactate more than 2 mmol/L (4.4 in patient's case) Abdomen/pelvis CT interpreted by radiologist as: perianal fistula. Abdomen/pelvis CT interpreted by hospitalist, agrees with radiology interpretation. General surgery consult ordered. Vancomycin and Zosyn were started emergency department continued. Hold home Flagyl. 30 MLS per kilogram IV bolus was given for ideal body weight since patient has congestive heart failure with ejection fraction of about 35 to 40%. Acute encephalopathy Likely secondary to infection. Resolved. Brain CT unremarkable. Elevated liver enzymes AST and ALT elevated. Likely secondary to shock liver. Trend CMP. Check CPK. Elevated troponin High sensitive troponin of 2,556. ED doc discussed with cardiology on-call. No further intervention at this time. Likely demand ischemia. Trend. CECIL on chronic kidney disease stage II CKD Likely from Diabetic nephropathy Baseline creatinine of 1.07 Creatinine on admission was 4.38. Received normal saline bolus. Avoid nephrotoxic's. Home Lasix and Cozaar held. Repeat in AM. Diabetes mellitus Patient with hyperglycemia on presentation Monitor Accu-Cheks Correction scale insulin ordered. Cardiac diabetic diet ordered. Chronic heart failure with reduced ejection fraction Stable Hold guideline directed medical therapy secondary to hypotension. DVT prophylaxis Subcutaneous heparin ordered. Sepsis Attestation Sepsis Alert: Yes Sepsis Attestation: Agree w/Sepsis Date exam was performed: 02/07/23 Time exam was performed: 23:50 Possible Source of Sepsis: GI tract/intra-abdominal Sepsis Organ Dysfunction Criteria Present: SBP < 90 mmHg or MAP < 65 mmHg Fluid Resuscitation Fluid resuscitation indicated?: Yes Fluid Resuscitation ordered: Lesser volume fluid bolus ordered Amount of fluid ordered: 2,000 Reason for lesser fluid bolus:: Concern for fluid overload and Heart failure Charges/Coding Visit Charges Inpatient E&M: 62043 Init Hosp L3
[2023-02-07 23:53] VITALS: BP 99/73; PULSE 108; RESP 20; TEMP 36.7; O2SAT 100
--- NOTE | 2023-02-07 23:59 | ED.RN ---
#bag of NS infused. Pt hx of CHF. On 2L of NC for comfort. Pt denies SOB or cough, Per Dr. Puga run number 2 bag of NS at 500ml/hr and monitor for CHF.
[2023-02-08] VITALS (23 sets, daily range): BP systolic 88–133; BP diastolic 39–95; PULSE 51–107; RESP 11–29; TEMP 36–37.4; O2SAT 90–100; BMI 47.1; BMI 46.9
[2023-02-08 01:43] LABS: Reflex Lactate? Y
--- NOTE | 2023-02-08 02:56 | PCM.RX.CS ---
Consult Pharmacy has been consulted to manage selected antiobiotic: Vancomycin Type of Consult: New start Suspected Infection: Sepsis Prior Doses of Antibiotics Received/Current Regimen: Medications Vancomycin HCl 1,250 mg/ (Sodium Chloride) 275 mls @ 167 mls/hr IV Q24H VERNELL Discontinued Medications Vancomycin HCl 2,000 mg/ (Sodium Chloride) 540 mls @ 250 mls/hr IV X1 ONE Stop: 02/07/23 23:53 Last Admin: 02/08/23 01:35 Dose: Infused Labs: Sodium 134 mmol/L (136-145) L 02/07/23 21:51 Potassium 3.6 mmol/L (3.5-5.1) 02/07/23 21:51 Chloride 100 mmol/L (98-107) 02/07/23 21:51 Carbon Dioxide 22.0 mmol/L (21.0-32.0) 02/07/23 21:51 Anion Gap 12 (5-15) 02/07/23 21:51 BUN 37 mg/dL (7-18) H 02/07/23 21:51 Creatinine 4.51 mg/dL (0.70-1.30) H 02/07/23 21:51 Est GFR (MDRD) Af Amer 18 mL/min (>60) L 02/07/23 21:51 Est GFR (MDRD) Non-Af 15 mL/min (>60) L 02/07/23 21:51 BUN/Creatinine Ratio 8.2 RATIO (10-20) L 02/07/23 21:51 Glucose 189 mg/dL (74-106) H 02/07/23 21:51 Weight used for dosin.5 kg Estimated Creatinine Clearance: 23.9 -ABW Goal Trough: 15-20 mcg/mL Pharmacy Plan for Drug Dosing: Pharmacy Service will continue to monitor and adjust dosing as required. Follow-Up Labs: Trough Vancomycin Labs to be done on [date and time ordered]: 02/09/23 @2300
[2023-02-08 03:13] LABS: Absolute Lymphocyte Count 2.01 X10^3/uL (0.83-4.51); Absolute Neutrophil Count 23.5 X10^3/uL (2.0-7.7); Basophil# 0.11 X10^3/uL; Basophil% 0.4 % (0-1); Eosinophil# 0.01 X10^3/uL; Hematocrit 34.5 % (40-54); Hemoglobin 11.4 g/dL (13.0-16.5); Lymphocyte # 2.01 X10^3/ul (0.83-4.51); Lymphocyte % 7.3 % (19-41); Mean Corpuscular Hgb 29.8 pg (27.0-32.0); Mean Corpuscular Volume 90.1 fL (80-94); Mean Platelet Vol. 9.7 fl (6.2-12.0); Monocyte# 1.56 X10^3/uL; Monocyte% 5.6 % (0-10); NRBC Flagged by Analyzer 0 % (0-5); Neutrophil # 23.53 X10^3/uL (2.7-7.7); Neutrophil % 84.9 % (47-70); POSITIVE DIFFERENTIAL YES; POSITIVE MORPHOLOGY YES; Platelet Count 319 K/mm3 (150-450); RBC Distribution Width CV 13.9 % (11.6-14.6); Red Blood Count 3.83 M/mm3 (4.6-6.2); White Blood Count 27.7 K/mm3 (4.4-11.0)
[2023-02-08 03:19] LABS: Differential Indicated SCAN CRITERIA MET
[2023-02-08 03:46] LABS: Lactic Acid 1.4 mmol/L (0.4-1.9)
[2023-02-08 03:47] LABS: ALB/GLOB Ratio 0.6 RATIO (0.9-2.4); AST(SGOT) 121 U/L (15-37); Alanine Aminotransfer ALT/SGPT 105 U/L (16-61); Albumin, Serum 2.4 g/dL (3.2-5.0); Alkaline Phosphatase 99 U/L (45-117); Anion Gap 8 (5-15); BUN 38 mg/dL (7-18); BUN/Creat Ratio 9.1 RATIO (10-20); CPK Total, Creatine Kinase 468 U/L (39-308); Calcium,Total 8.5 mg/dL (8.5-10.1); Chloride 104 mmol/L (98-107); Creatinine, Serum 4.18 mg/dL (0.70-1.30); EST Glomerular Filtration Rate 16 mL/min (>60); Est Glom Filt Rate - Afr Amer 19 mL/min (>60); Estimated Creatinine Clearance 18.02 ml/min; Globulin 4.3 g/dL (2.2-4.2); Glucose 175 mg/dL (74-106); Potassium 5.2 mmol/L (3.5-5.1); Protein, Total 6.7 g/dL (6.4-8.2); Sodium Level 135 mmol/L (136-145)
[2023-02-08 03:49] LABS: Troponin-I HS 2655 pg/mL (3.0-78.0)
[2023-02-08 04:49] LABS: Differential Comment SCANNED
[2023-02-08] MEDS: Heparin Injection (Vial) 5,000 UNIT/ML VIAL 5000 UNIT SC ×2 (05:48→14:11)
--- NOTE | 2023-02-08 06:58 | EX.PCM.CON.S ---
Assessment & Plan Assessment/Plan (1) Septic shock: (2) Perianal abscess: (3) Elevated troponin: (4) CECIL (acute kidney injury): PLAN: Plan Reviewed CT abdomen pelvis personally patient does have subcutaneous air consistent with a necrotizing infection. Patient needs urgent OR for incision and debridement. Patient does have a lot of other risk factors including the elevated troponin acute kidney injury. Patient has a very high risk for surgery but has really no choice but to get surgery to resolve this infection. Risk including but not limited to ND, need for further surgery, anesthesia and even discussed with patient. Also discussed with patient possible need to transfer to tertiary care facility. Also discussed with patient's via the phone. IV abx- zosyn, vanco, and adding clindamycin Sallie Zaman M.D. Pager: [phone] [facility] [address] [place] [address], Outpatient Pavilion, [address] [place] [address] Office: [phone] HPI Consult Data Date of Consult: 02/08/23 HPI Narrative HPI Narrative: MALLY WILSON, is a 57 M who presents due to septic shock from ER. Patient was seen in office and I&D done by our PA with packing. Patient is a diabetic. Patient CT abdomen pelvis with initially did not call the subcutaneous air addendum was placed. Patient's white blood count is 27, INR 1.2, potassium 5.2, creatinine 4.18 [facility] Medical History Abnormal echocardiogram Abnormal EKG Atherosclerosis of coronary artery of [place] heart without angina pectoris BMI 34.0-34.9,adult Dilated cardiomyopathy Essential hypertension Family history of ischemic heart disease Hyperlipidemia KATIA (obstructive sleep apnea) Severe left ventricular systolic dysfunction Type 2 diabetes mellitus Home Medications multivitamin 1 tab PO DAILY 07/29/19 [History Last Taken 09/02/19] aspirin 81 mg tablet,delayed release (Adult Aspirin Regimen) 81 mg PO DAILY 08/04/19 [History Last Taken 09/02/19] turmeric root extract 500 mg capsule 500 mg PO DAILY 08/04/19 [History Last Taken Unknown] omega-3 fatty acids 1,000 mg capsule 1,000 mg PO DAILY 09/11/22 [History Last Taken Unknown] metoprolol succinate 50 mg tablet,extended release 24 hr 50 mg PO DAILY #90 tabs 10/30/22 [Rx Last Taken Unknown] losartan 50 mg tablet 50 mg PO BID #180 tabs 11/05/22 [Rx Last Taken Unknown] cholecalciferol (vitamin D3) 50 mcg (2,000 unit) capsule 50 mcg PO DAILY 01/08/23 [History Last Taken Unknown] furosemide 40 mg tablet (Lasix) 40 mg PO DAILY #90 tabs 01/08/23 [Rx Last Taken Unknown] metformin 1,000 mg tablet mg 02/07/23 [History Last Taken Unknown] metronidazole 500 mg tablet 250 mg PO BID 02/07/23 [History Last Taken Unknown] oxycodone 5 mg tablet 5 mg PO Q6H PRN pain 3 days #9 tabs 02/07/23 [Rx Last Taken Unknown] Allergy/AdvReac Type Severity Reaction Status Date / Time tramadol Allergy Severe Other Verified 02/07/23 20:40 naproxen Allergy Intermediate PT UNSURE Verified 02/07/23 20:40 OF REACTION pravastatin AdvReac Severe Myalgias Verified 02/07/23 20:40 Family History Father Pacemaker Mother Atrial fibrillation Surgical History History of left heart catheterization (03/15/09) History of partial knee replacement (05/29/22) History of right and left heart catheterization (LHC) (09/02/19) Presence of implantable cardioverter-defibrillator (ICD) Stented coronary artery (03/15/09) Social History Smoking Status: Former smoker quit date: 03/15/09 alcohol intake: current alcohol intake frequency: holidays/special occasions only substance use type: does not use caffeine: Yes Type: coffee Number of servings: 2 ROS Constitutional Constitutional: Denies anorexia Eyes Eyes: Denies change in vision ENT HEENT: Denies dysphagia Cardiovascular Cardiovascular: Denies chest pain Respiratory/Chest Respiratory/Chest: Denies cough Gastrointestinal Gastrointestinal: Denies abdominal pain, nausea or vomiting Genitourinary Genitourinary: Denies dysuria Integumentary Integumentary: Denies jaundice Endocrine Endocrinology: Denies palpitations Hematologic/Lymphatic Hematologic/Lymphatic: Denies easy bleeding Physical Exam Const alert, oriented x3 and no apparent distress General Appearance: ill appearing Resp normal respiratory effort Cardio Rate: regular rate GI soft to palpation, non-tender and non-distended GI Narrative: Erythema bilateral cheeks, previous packing near anus on the right in place erythema extends anteriorly. Extremity Negative for no calf tenderness Skin Wound Narrative: Erythema and induration to bilateral gluteal cheeks near anus and extends anteriorly?extensive Neuro CN's II-XII intact bilaterally Lab / Micro Data Result Diagrams: 02/08/23 03:05 02/08/23 03:05 Labs: Laboratory Results - last 24 hr 02/07/23 20:50: WBC 23.0 H, RBC 4.39 L, Hgb 13.0, Hct 38.4 L, MCV 87.5, MCH 29.6, MCHC 33.9, RDW Std Deviation 43.3, RDW Coeff of Jimy 13.4, Plt Count 305, MPV 9.2, Neut % (Auto) Not Reportable, Absolute Neuts (auto) 19.3 H, Absolute Lymphs (auto) 1.61, Total Counted 100, Neutrophils % (Manual) 67, Band Neutrophils % 17 H, Lymphocytes % (Manual) 7 L, Monocytes % (Manual) 5, Metamyelocytes % 4 H, Diff Path Review December, Platelet Estimate ADEQUATE, RBC Morphology N CHROM, Anisocytosis RARE 02/07/23 20:50: Sodium 134 L, Potassium 3.4 L, Chloride 98, Carbon Dioxide 23.0, Anion Gap 13, BUN 38 H, Creatinine 4.38 H, Estim Creat Clear Calc 17.82, Est GFR (MDRD) Af Amer 18 L, Est GFR (MDRD) Non-Af 15 L, BUN/Creatinine Ratio 8.7 L, Glucose 172 H, Calcium 9.7 02/07/23 20:50: PT 15.4 H, INR 1.2, APTT 34.9 02/07/23 21:00: POC Glucose 159 H 02/07/23 21:35: Lactic Acid 4.4 H* 02/07/23 21:51: Sodium 134 L, Potassium 3.6, Chloride 100, Carbon Dioxide 22.0, Anion Gap 12, BUN 37 H, Creatinine 4.51 H, Estim Creat Clear Calc 17.30, Est GFR (MDRD) Af Amer 18 L, Est GFR (MDRD) Non-Af 15 L, BUN/Creatinine Ratio 8.2 L, Glucose 189 H, Calcium 9.3, Total Bilirubin 0.60, AST 70 H, ALT 87 H, Alkaline Phosphatase 100, Troponin I High Sens 2556 H*, Total Protein 6.7, Albumin 2.5 L, Globulin 4.2, Albumin/Globulin Ratio 0.6 L 02/08/23 03:05: Lactic Acid 1.4 02/08/23 03:05: WBC 27.7 H, RBC 3.83 L, Hgb 11.4 L, Hct 34.5 L, MCV 90.1, MCH 29.8, MCHC 33.0, RDW Std Deviation 46.0 H, RDW Coeff of Jimy 13.9, Plt Count 319, MPV 9.7, Immature Gran % (Auto) 1.800 H, Neut % (Auto) 84.9 H, Lymph % (Auto) 7.3 L, [place] % (Auto) 5.6, Eos % (Auto) 0.0, Baso % (Auto) 0.4, Absolute Neuts (auto) 23.5 H, Absolute Lymphs (auto) 2.01, Nucleated RBC % 0, Differential Comment SCANNED, Diff Path Review December02/08/23 03:05: Sodium 135 L, Potassium 5.2 H, Chloride 104, Carbon Dioxide 23.0, Anion Gap 8, BUN 38 H, Creatinine 4.18 H, Estim Creat Clear Calc 18.02, Est GFR (MDRD) Af Amer 19 L, Est GFR (MDRD) Non-Af 16 L, BUN/Creatinine Ratio 9.1 L, Glucose 175 H, Calcium 8.5, Total Bilirubin 0.60, AST 121 H, ALT 105 H, Alkaline Phosphatase 99, Total Protein 6.7, Albumin 2.4 L, Globulin 4.3 H, Albumin/Globulin Ratio 0.6 L 02/08/23 03:05: Total Creatine Kinase 468 H 02/08/23 03:05: Troponin I High Sens 2655 H* Radiology Impression Abdomen/Pelvis CT 02/07/23 21:21 IMPRESSION: No pelvic mass. Electronically Signed: Tobin Forde DO at 22:34 EDT , ADDENDUM: 02/07/23 2343 IMPRESSION: undefined Brain CT 02/07/23 21:21 IMPRESSION: No acute intracranial pathology. Minimal paranasal sinus disease left sphenoid sinus. Electronically Signed: Tobin Forde DO at 22:26 EDT , Chest X-Ray 02/07/23 22:08 IMPRESSION: 1. No radiographic evidence of acute cardiopulmonary disease. Electronically Signed: Tobin Forde DO at 22:20 EDT ,
--- NOTE | 2023-02-08 07:15 | EX.PCM.CONCC ---
Assessment & Plan Assessment/Plan (1) Perianal abscess: (2) Septic shock: (3) CECIL (acute kidney injury): (4) Elevated troponin: PLAN: Plan RECOMMENDATIONS: 1. Obtain old records 2. Await surgery recommendations pending abscess 3. Possible central line for pressors if patient decompensates. Place Branch catheter 4. Encourage incentive spirometer 5. Potential empiric BiPAP with sleep 6. Continue broad-spectrum antibiotics for now IMPRESSIONS: 1. Sepsis secondary to perianal abscess Patient with drainage yesterday, but has significant changes overnight. Endorgan damage indicated by elevated creatinine, troponin and change in mental status. Patient responded well to fluid resuscitation. Unclear baseline creatinine. Surgery to evaluate the patient. Continue broad-spectrum antibiotics. Hold Lasix and ARB until condition stabilizes. Discussed with surgery. Patient likely to go to the OR for debridement emergently. 2. Acute kidney injury Last creatinine was in 2019. Patient with significant elevation in creatinine at this time. Unclear if patient has a postobstructive event versus ATN secondary to hypotension. No indication for renal replacement therapy, but Lasix and losartan will need to be held. 3. Chronic systolic CHF/pacemaker Patient does not appear to be in ashley fluid overload at this time. We will need to hold medications secondary to problem #1. Continue to monitor respiratory status closely. 4. Morbid obesity/diabetes mellitus/poor history Complicates care, management, recovery and prognosis. Recommend sliding scale insulin at this time. Hold metformin as this can increase lactic acid in the setting of renal failure. We will attempt to obtain old records from PCP. TIME: 35 minutes critical care time spent addressing patient's sepsis, acute kidney injury, CHF, review of all data and collaboration with care team HPI Consult Data Date of Consult: 02/08/23 HPI Narrative Reason for Consultation: Sepsis HPI Narrative: MALLY WILSON is a 57 M, with past medical history listed below, who presents to [facility] on 02/07/2023 secondary to acute confusion. Patient reportedly had had a perirectal abscess drained prior in the day. Patient had traveled to [place] and was of his normal health. Since return, patient had developed nausea and vomiting and had a perianal abscess drained. Patient reports he has had difficulty in urinating for the last 2 days. In the ER, patient was tachycardic at 124 bpm and hypotensive as low as 88/54. Patient was tolerating room air well. Patient was given IV fluids and responded well. Patient did receive antibiotics. Patient does carry diagnosis of CHF with last known ejection fraction of approximately 40%. Patient did have a CT of the abdomen and pelvis which showed no obvious abscess. Laboratory data showed a white blood cell count of 23, hemoglobin of 13 and platelets of 305. Coagulation studies were within normal limits. Patient was noted to have a sodium of 134, BUN of 38 and creatinine of 4.38. Patient's last known creatinine was 1.1 in 2019. Patient does not report a history of chronic kidney disease. Patient's lactate was elevated at 4.4 and troponins were noted to be 2556. Patient was admitted to the intensive care unit. Overnight, patient has not required any pressor agents. Patient subjectively feels slightly improved compared to previous. Patient was initially refusing a Branch catheter, but did struggle significantly to produce approximately 50 cc of urine. Patient states he has had decreased urine output for the last 2 days. Patient states he has been of relatively good health. Patient was admitted for the pacemaker and his knee replacement. Patient denies any previous respiratory issues. Patient denies a history of KATIA, but does admit to snoring on a regular basis. Patient states he has been compliant with his medications. Patient did use oxycodone recently secondary to pain associated with the perianal abscess. Patient is not able to say if he has had outside labs. Patient gives no history of previous renal failure. Patient states he was recently diagnosed with diabetes. 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 No recent travel or trauma reported. Review of systems otherwise negative from a constitutional, HEENT, respiratory, cardiovascular, GI, genitourinary, musculoskeletal, skin, neurologic, psychiatric and hematologic system unless stated above. [facility] Medical History Abnormal echocardiogram Abnormal EKG Atherosclerosis of coronary artery of [place] heart without angina pectoris BMI 34.0-34.9,adult Dilated cardiomyopathy Essential hypertension Family history of ischemic heart disease Hyperlipidemia KATIA (obstructive sleep apnea) Severe left ventricular systolic dysfunction Type 2 diabetes mellitus Home Medications multivitamin 1 tab PO DAILY 07/29/19 [History Last Taken 09/02/19] aspirin 81 mg tablet,delayed release (Adult Aspirin Regimen) 81 mg PO DAILY 08/04/19 [History Last Taken 09/02/19] turmeric root extract 500 mg capsule 500 mg PO DAILY 08/04/19 [History Last Taken Unknown] omega-3 fatty acids 1,000 mg capsule 1,000 mg PO DAILY 09/11/22 [History Last Taken Unknown] metoprolol succinate 50 mg tablet,extended release 24 hr 50 mg PO DAILY #90 tabs 10/30/22 [Rx Last Taken Unknown] losartan 50 mg tablet 50 mg PO BID #180 tabs 11/05/22 [Rx Last Taken Unknown] cholecalciferol (vitamin D3) 50 mcg (2,000 unit) capsule 50 mcg PO DAILY 01/08/23 [History Last Taken Unknown] furosemide 40 mg tablet (Lasix) 40 mg PO DAILY #90 tabs 01/08/23 [Rx Last Taken Unknown] metformin 1,000 mg tablet mg 02/07/23 [History Last Taken Unknown] metronidazole 500 mg tablet 250 mg PO BID 02/07/23 [History Last Taken Unknown] oxycodone 5 mg tablet 5 mg PO Q6H PRN pain 3 days #9 tabs 02/07/23 [Rx Last Taken Unknown] Allergy/AdvReac Type Severity Reaction Status Date / Time tramadol Allergy Severe Other Verified 02/07/23 20:40 naproxen Allergy Intermediate PT UNSURE Verified 02/07/23 20:40 OF REACTION pravastatin AdvReac Severe Myalgias Verified 02/07/23 20:40 Family History Father Pacemaker Mother Atrial fibrillation Surgical History History of left heart catheterization (03/15/09) History of partial knee replacement (05/29/22) History of right and left heart catheterization (LHC) (09/02/19) Presence of implantable cardioverter-defibrillator (ICD) Stented coronary artery (03/15/09) Social History Smoking Status: Former smoker quit date: 03/15/09 alcohol intake: current alcohol intake frequency: holidays/special occasions only substance use type: does not use caffeine: Yes Type: coffee Number of servings: 2 ROS ROS Narrative See HPI Physical Exam Const alert and oriented x3 Constitutional Narrative: Morbidly obese. Appears uncomfortable HEENT normocephalic and head/scalp atraumatic HEENT Narrative: Mallampati 4. Eyes PERRL, EOMs intact bilaterally, conjunctivae normal and no scleral icterus Neck full ROM Resp normal respiratory effort Effort and Inspection: able to speak in complete sentences Auscultation: Negative for rales, rhonchi or wheezes Cardio regular rate, regular rhythm, S1 normal heart sound, S2 normal heart sound, no murmurs, no rub and no gallops GI GI Narrative: Slightly tender to palpation suprapubically Extremity General Extremity: edema; Negative for clubbing Skin Skin Narrative: Incision site noted with drainage Neuro oriented x3 and CN's II-XII intact bilaterally Psych cooperative Mood & Affect: anxious Medical Records Data Attestation: I reviewed the patient's medical records Medical records narrative: Attempting to obtain further records from Dr. Dsouza's office. No chemistry since 2019. Cardiology notes were reviewed. Lab / Micro Data Attestation: I reviewed the patient's lab results. Result Diagrams: 02/08/23 03:05 02/08/23 03:05 Labs: Laboratory Results - last 24 hr 02/07/23 20:50: WBC 23.0 H, RBC 4.39 L, Hgb 13.0, Hct 38.4 L, MCV 87.5, MCH 29.6, MCHC 33.9, RDW Std Deviation 43.3, RDW Coeff of Jimy 13.4, Plt Count 305, MPV 9.2, Neut % (Auto) Not Reportable, Absolute Neuts (auto) 19.3 H, Absolute Lymphs (auto) 1.61, Total Counted 100, Neutrophils % (Manual) 67, Band Neutrophils % 17 H, Lymphocytes % (Manual) 7 L, Monocytes % (Manual) 5, Metamyelocytes % 4 H, Diff Path Review May foll, Platelet Estimate ADEQUATE, RBC Morphology N CHROM, Anisocytosis RARE 02/07/23 20:50: Sodium 134 L, Potassium 3.4 L, Chloride 98, Carbon Dioxide 23.0, Anion Gap 13, BUN 38 H, Creatinine 4.38 H, Estim Creat Clear Calc 17.82, Est GFR (MDRD) Af Amer 18 L, Est GFR (MDRD) Non-Af 15 L, BUN/Creatinine Ratio 8.7 L, Glucose 172 H, Calcium 9.7 02/07/23 20:50: PT 15.4 H, INR 1.2, APTT 34.9 02/07/23 21:00: POC Glucose 159 H 02/07/23 21:35: Lactic Acid 4.4 H* 02/07/23 21:51: Sodium 134 L, Potassium 3.6, Chloride 100, Carbon Dioxide 22.0, Anion Gap 12, BUN 37 H, Creatinine 4.51 H, Estim Creat Clear Calc 17.30, Est GFR (MDRD) Af Amer 18 L, Est GFR (MDRD) Non-Af 15 L, BUN/Creatinine Ratio 8.2 L, Glucose 189 H, Calcium 9.3, Total Bilirubin 0.60, AST 70 H, ALT 87 H, Alkaline Phosphatase 100, Troponin I High Sens 2556 H*, Total Protein 6.7, Albumin 2.5 L, Globulin 4.2, Albumin/Globulin Ratio 0.6 L 02/08/23 03:05: Lactic Acid 1.4 02/08/23 03:05: WBC 27.7 H, RBC 3.83 L, Hgb 11.4 L, Hct 34.5 L, MCV 90.1, MCH 29.8, MCHC 33.0, RDW Std Deviation 46.0 H, RDW Coeff of Jimy 13.9, Plt Count 319, MPV 9.7, Immature Gran % (Auto) 1.800 H, Neut % (Auto) 84.9 H, Lymph % (Auto) 7.3 L, [place] % (Auto) 5.6, Eos % (Auto) 0.0, Baso % (Auto) 0.4, Absolute Neuts (auto) 23.5 H, Absolute Lymphs (auto) 2.01, Nucleated RBC % 0, Differential Comment SCANNED, Diff Path Review December foll 02/08/23 03:05: Sodium 135 L, Potassium 5.2 H, Chloride 104, Carbon Dioxide 23.0, Anion Gap 8, BUN 38 H, Creatinine 4.18 H, Estim Creat Clear Calc 18.02, Est GFR (MDRD) Af Amer 19 L, Est GFR (MDRD) Non-Af 16 L, BUN/Creatinine Ratio 9.1 L, Glucose 175 H, Calcium 8.5, Total Bilirubin 0.60, AST 121 H, ALT 105 H, Alkaline Phosphatase 99, Total Protein 6.7, Albumin 2.4 L, Globulin 4.3 H, Albumin/Globulin Ratio 0.6 L 02/08/23 03:05: Total Creatine Kinase 468 H 02/08/23 03:05: Troponin I High Sens 2655 H* Radiology Impression Abdomen/Pelvis CT 02/07/23 21:21 IMPRESSION: No pelvic mass. Electronically Signed: Tobin Forde DO at 22:34 EDT , ADDENDUM: 02/07/23 2343 IMPRESSION: undefined Brain CT 02/07/23 21:21 IMPRESSION: No acute intracranial pathology. Minimal paranasal sinus disease left sphenoid sinus. Electronically Signed: Tobin Forde DO at 22:26 EDT , Chest X-Ray 02/07/23 22:08 IMPRESSION: 1. No radiographic evidence of acute cardiopulmonary disease. Electronically Signed: Tobin Forde DO at 22:20 EDT , Charges/Coding Procedures Hospitalists Procedures: [id number] Critial Care 1st Hr
--- NOTE | 2023-02-08 07:45 | NURSING ---
patient transferred with surgery staff to OR at this time, daughter, Khris at bedside.
[2023-02-08 07:56] LABS: Mucous, Urine 0 SEEN /hpf (<or=2+)
[2023-02-08 07:58] LABS: Color, Urine Yellow (Yellow); Glucose, Dipstick Normal (Normal); Ketone-Dipstick 5 mg/dl (Negative); Leukocyte Esterase-Dipstick 25 /ul (Negative); Nitrite-Dipstick Negative (Negative); Occult Blood-Urine 25 /ul (Negative); Protein-Dipstick 30 mg/dl (Negative); Specific Gravity, Urine 1.025 (1.002-1.030); Urine Clarity Sl. Cloudy (Clear); Urine Urobilinogen 1 mg/dl (Normal)
[2023-02-08 07:59] LABS: Urine Bilirubin Dipstick 1 mg/dL (Negative)
[2023-02-08 08:05] LABS: Bacteria 1+ /hpf (None Seen); Red Blood Cells-Urine 0-5 SEEN /hpf (0-5); Squamous Epithelial Cells - UA 0-5 SEEN /hpf (0-5); White Blood Cells 0-5 SEEN /hpf (0-5)
[2023-02-08] MEDS: Clindamycin 900 MG/50 ML BAG 75 MG IV ×2 (08:10→15:38)
--- NOTE | 2023-02-08 08:39 | PCM.PN.HOSP ---
Subjective Subjective Fairly stable overnight. Plan for operative debridement today based on the addendum on the CT scan indicating necrotizing fasciitis Objective Data Objective Data Vital Signs: Vital Signs Temp Pulse Resp BP Pulse Ox O2 Del Method O2 Flow Rate 97.8 F 103 H 16 91/49 L 100 Nasal Cannula 2 02/08/23 06:00 02/08/23 07:00 02/08/23 07:00 02/08/23 07:00 02/08/23 07:00 02/08/23 08:00 02/08/23 08:00 Oxygen Flow Rate (L/min) 2 Oxygen Delivery Method Nasal Cannula Weight: 292 lb 1.8 oz Body Mass Index (BMI) 46.9 Intake & Output: Intake and Output for Last 24 Hours 02/07/23 02/08/23 02/09/23 03:59 03:59 03:59 Intake Total 2640 / 2640 Output Total 0 / 0 Balance 2640 / 2640 0 / 0 Lab / Micro Data Result Diagrams: 02/08/23 03:05 02/08/23 03:05 Labs: Laboratory Results - last 24 hr 02/07/23 20:50: WBC 23.0 H, RBC 4.39 L, Hgb 13.0, Hct 38.4 L, MCV 87.5, MCH 29.6, MCHC 33.9, RDW Std Deviation 43.3, RDW Coeff of Jimy 13.4, Plt Count 305, MPV 9.2, Neut % (Auto) Not Reportable, Absolute Neuts (auto) 19.3 H, Absolute Lymphs (auto) 1.61, Total Counted 100, Neutrophils % (Manual) 67, Band Neutrophils % 17 H, Lymphocytes % (Manual) 7 L, Monocytes % (Manual) 5, Metamyelocytes % 4 H, Diff Path Review December, Platelet Estimate ADEQUATE, RBC Morphology N CHROM, Anisocytosis RARE 02/07/23 20:50: Sodium 134 L, Potassium 3.4 L, Chloride 98, Carbon Dioxide 23.0, Anion Gap 13, BUN 38 H, Creatinine 4.38 H, Estim Creat Clear Calc 17.82, Est GFR (MDRD) Af Amer 18 L, Est GFR (MDRD) Non-Af 15 L, BUN/Creatinine Ratio 8.7 L, Glucose 172 H, Calcium 9.7 02/07/23 20:50: PT 15.4 H, INR 1.2, APTT 34.9 02/07/23 21:00: POC Glucose 159 H 02/07/23 21:35: Lactic Acid 4.4 H* 02/07/23 21:51: Sodium 134 L, Potassium 3.6, Chloride 100, Carbon Dioxide 22.0, Anion Gap 12, BUN 37 H, Creatinine 4.51 H, Estim Creat Clear Calc 17.30, Est GFR (MDRD) Af Amer 18 L, Est GFR (MDRD) Non-Af 15 L, BUN/Creatinine Ratio 8.2 L, Glucose 189 H, Calcium 9.3, Total Bilirubin 0.60, AST 70 H, ALT 87 H, Alkaline Phosphatase 100, Troponin I High Sens 2556 H*, Total Protein 6.7, Albumin 2.5 L, Globulin 4.2, Albumin/Globulin Ratio 0.6 L 02/08/23 03:05: Lactic Acid 1.4 02/08/23 03:05: WBC 27.7 H, RBC 3.83 L, Hgb 11.4 L, Hct 34.5 L, MCV 90.1, MCH 29.8, MCHC 33.0, RDW Std Deviation 46.0 H, RDW Coeff of Jimy 13.9, Plt Count 319, MPV 9.7, Immature Gran % (Auto) 1.800 H, Neut % (Auto) 84.9 H, Lymph % (Auto) 7.3 L, [place] % (Auto) 5.6, Eos % (Auto) 0.0, Baso % (Auto) 0.4, Absolute Neuts (auto) 23.5 H, Absolute Lymphs (auto) 2.01, Nucleated RBC % 0, Differential Comment SCANNED, Diff Path Review December foll 02/08/23 03:05: Sodium 135 L, Potassium 5.2 H, Chloride 104, Carbon Dioxide 23.0, Anion Gap 8, BUN 38 H, Creatinine 4.18 H, Estim Creat Clear Calc 18.02, Est GFR (MDRD) Af Amer 19 L, Est GFR (MDRD) Non-Af 16 L, BUN/Creatinine Ratio 9.1 L, Glucose 175 H, Calcium 8.5, Total Bilirubin 0.60, AST 121 H, ALT 105 H, Alkaline Phosphatase 99, Total Protein 6.7, Albumin 2.4 L, Globulin 4.3 H, Albumin/Globulin Ratio 0.6 L 02/08/23 03:05: Total Creatine Kinase 468 H 02/08/23 03:05: Troponin I High Sens 2655 H* 02/08/23 07:45: Urine Color Yellow, Urine Clarity Sl. Cloudy, Urine pH 5.0, Ur Specific Commodore 1.025, Urine Protein 30 H, Urine Glucose (UA) Normal, Urine Ketones 5 H, Urine Occult Blood 25 H, Urine Nitrite Negative, Urine Bilirubin 1 H, Urine Urobilinogen 1 H, Ur Leukocyte Esterase 25 H, Urine RBC 0-5 SEEN, Urine WBC 0-5 SEEN, Ur Squamous Epith Cells 0-5 SEEN, Urine Bacteria 1+, Urine Mucus 0 SEEN Radiography Diagnostic Testing: Radiology Impression Abdomen/Pelvis CT 02/07/23 21:21 IMPRESSION: No pelvic mass. Electronically Signed: Tobin Forde DO at 22:34 EDT , ADDENDUM: 02/07/23 2343 IMPRESSION: undefined Brain CT 02/07/23 21:21 IMPRESSION: No acute intracranial pathology. Minimal paranasal sinus disease left sphenoid sinus. Electronically Signed: Tobin Forde DO at 22:26 EDT , Chest X-Ray 02/07/23 22:08 IMPRESSION: 1. No radiographic evidence of acute cardiopulmonary disease. Electronically Signed: Tobin Forde DO at 22:20 EDT , Physical Exam Narrative General: Alert, Oriented x3, Cooperative, in pain, uncomfortable HEENT: Atraumatic, PERRLA, EOMI, Normocephalic Oral: Moist Mucosa Neck: Supple, No JVD Lungs: Clear to auscultation, Normal air movement, No rhonchi, No wheeze, No rales Cardiovascular: Tachycardia, Regular Rhythm, Normal S1, Normal S2, No murmurs Abdomen: Soft, Non Tender, Non-Distended, No Hepato-splenomegaly Extremities: Edema, Capillary Refill Less than 3 Seconds Skin: No rashes, No breakdown Musculoskeletal: No Tenderness to Palpation of Joints or Extremities Neurological: Cranial nerves II-XII grossly intact, Motor Exam 5/5 strength throughout, Sensory exam intact to light touch and pain Psych/Mental Status: Anxious Assessment & Plan Assessment/Plan (1) Septic shock: (2) Perianal abscess: (3) Type 2 diabetes mellitus: (4) CHF (congestive heart failure): PLAN: Plan 1. Sepsis secondary to perianal abscess and necrotizing fasciitis/CECIL/elevated LFTs ? He did have a perianal abscess that was drained and the office and was started on Flagyl which she could not tolerate ? On presentation to the ER CT scan had an addendum that demonstrated free air in the subcutaneous tissues indicating possible necrotizing fasciitis ? Started on broad-spectrum antibiotics including vancomycin and Zosyn, clindamycin added ?LFTs are elevated secondary to sepsis we will monitor 2. Type 2 diabetes ? Recently diagnosed ? Hold his home medications ? Continue with insulin and Accu-Cheks ? Make adjustments as necessary 3. Chronic diastolic CHF/HTN/HLD ? Will hold his blood pressure medications and his Lasix secondary to his hypotension and his CECIL ? Continue with IV 6 DVT: Heparin Charges/Coding Visit Charges Inpatient E&M: 27030 Subs Hosp L2
--- NOTE | 2023-02-08 09:16 | PCM.OPRPT ---
Report of Operation Date of Procedure: 02/08/23 Pre-Operative Diagnosis: Necrotizing perianal abscess, septic shock, acute kidney injury, elevated troponins Post-Operative Diagnosis: Same Surgery/Procedure Performed:: Incision and debridement of perianal necrotizing abscess Surgeon: Sallie Zaman logistics intern: Michael Sanches Type of Anesthesia: General/Supplemental Anesthesiologist: Geronimo Barbosa Special Medications: Clindamycin 900 mg IV, patient on Zosyn and vancomycin for abscess Specimen's removed: Culture of perianal tissue Estimated Blood Loss (mL): 50 cc Description of Procedure: Patient was brought to operating a timeout was planned verifying correct patient, procedure, site, positioning, special equipment prior to beginning procedure. General anesthesia was induced. Patient was placed prone on the OR table with appropriate padding. Patient's buttocks were and tape. Areas prepped and draped with Betadine. Incision was made at the area of draining foul-smelling, purulent material. This was deepened to necrotic tissue which was all removed until grossly normal tissue with electrocautery. Incision started on the left perirectal area and did transition inferior to the anus to the right as well as anteriorly towards the scrotum. All grossly necrotic tissue was debrided with electrocautery. Wound was irrigated with saline as well as Irrisept and then rinsed again with saline. The left perianal area was 7 cm deep, 17 cm in length, 5 cm in width, right perianal cavity is 5 cm deep 7 cm in length and 3.5 cm in width, anteriorly the cavity was about another 7 cm. This was packed with Betadine soaked Kerlix. Patient was extubated. Patient tolerated procedure and vital signs remained stable and was taken back to the ICU in critical condition. Complications none
--- NOTE | 2023-02-08 09:41 | CASEMGMT ---
Tertiary facilities in-network with patient's insurance: [facility], [facility], [facility], [facility], [facility]. Sandra Pa[facility]
[2023-02-08] MEDS: fentaNYL 100 MCG/2 ML Ampul 50 MCG IV ×2 (10:56→17:30)
[2023-02-08 11:33] LABS: Bedside Glucose 139 mg/dL (74-106)
[2023-02-08] MEDS: Phenol/Sodium Phenolate 180ML 3 SPRAY MUCOUS MEM (14:11)
[2023-02-08 15:32] LABS: Pathologist Review Reviewed
[2023-02-08 15:33] LABS: Pathologist Review Reviewed
--- NOTE | 2023-02-08 16:10 | PCM.DC.SUM ---
Providers Date of Admission: 02/08/23 Primary Care Physician: Dr. Freddy Dsouza MD Consultations 02/08/23 02:38 Consult: Operating Systems Programmer / Pulmonary Medicine Routine Consulting Provider: Venkatesh Palma Reason for Consult: Septic shock EMERGENT Consult: No Notified: Yes Date Notified: 02/08/23 Time Notified: 02:13 Method of Notification: Text 02/08/23 02:47 Consult: General Surgery Routine Consulting Provider: Sallie Zaman Reason for Consult: joe-anal fistula EMERGENT Consult: No Notified: Yes Date Notified: 02/08/23 Time Notified: 02:48 Method of Notification: Text Reason For Visit: SEPTIC SHOCK, PERIANAL ABSCESS Diagnosis Discharge Diagnosis (1) Septic shock: Status: Acute Code(s): A41.9 - Sepsis, unspecified organism; R65.21 - Severe sepsis with septic shock (2) Perianal abscess: Status: Acute Code(s): K61.0 - Anal abscess (3) Type 2 diabetes mellitus: Status: Acute Code(s): E11.9 - Type 2 diabetes mellitus without complications (4) CHF (congestive heart failure): Status: Acute Code(s): I50.9 - Heart failure, unspecified Medications at Discharge Home Medications multivitamin 1 tab PO DAILY 07/29/19 aspirin 81 mg tablet,delayed release (Adult Aspirin Regimen) 81 mg PO DAILY 08/04/19 turmeric root extract 500 mg capsule 500 mg PO DAILY 08/04/19 omega-3 fatty acids 1,000 mg capsule 1,000 mg PO DAILY 09/11/22 metoprolol succinate 50 mg tablet,extended release 24 hr 50 mg PO DAILY #90 tabs 10/30/22 losartan 50 mg tablet 50 mg PO BID #180 tabs 11/05/22 cholecalciferol (vitamin D3) 50 mcg (2,000 unit) capsule 50 mcg PO DAILY 01/08/23 furosemide 40 mg tablet (Lasix) 40 mg PO DAILY #90 tabs 01/08/23 metformin 1,000 mg tablet mg 02/07/23 oxycodone 5 mg tablet 5 mg PO Q6H PRN pain 3 days #9 tabs 02/07/23 Hospital Course Operations - (Debridement of perianal abscess with packing) Procedures None Summary of Care Provided Minutes Spent on Discharge: 36 Hospital Course: Per HPI: MALLY WILSON, is a 57 M with a significant history of morbid obesity; hypertension; diabetes mellitus; CAD status post stents; heart failure with pacemaker and ICD who presents? to the emergency department with altered mental status that started on the same day of presentation. Associated symptoms is nausea, vomiting, diaphoresis, and rigors.? Earlier on on the same day of presentation the patient had a rectal abscess drained.? He was then placed on Flagyl.? Reportedly patient has not tolerated a fro because of his nausea and vomiting.? With his vomiting his Flagyl did not stay down. Of note patient was started on metformin 1000 mg twice daily and she had GI symptoms including diarrhea.? Metformin was held for a few days and the dose was appropriately de-escalated.? Family think that patient's symptoms snowballed from when he was prescribed the metformin. Hospital Course: 1. Sepsis secondary to perianal abscess with necrotizing fasciitis/CECIL/elevated LFTs?57-year-old male presents to the hospital with signs consistent of sepsis. Earlier in the day he presented to his general surgery's office and had a drainage of perianal abscess and was started on Flagyl which she could not tolerate. He developed fevers and chills and presented to the hospital and was ultimately found to have what appeared to be necrotizing fasciitis. He was started on vancomycin, Zosyn, clindamycin and taken to the OR for debridement. It was felt that he would be better served at a tertiary care center as we do not have urology coverage and it appeared that the infection was spreading anteriorly. I discussed the case with [facility] and they did accept him to their surgical ICU. Of note he was recently diagnosed with diabetes and started on metformin which led to some diarrhea as an outpatient. He also has a CECIL, his baseline creatinine is around 1 and on admission he is 4.2 we will continue with aggressive IV fluids. He has not required any pressors at this time and he has been responsive to IV fluids. 2. Chronic diastolic CHF, hypertension, hyperlipidemia, type 2 diabetes are chronic medical conditions which complicate his care. His home medications were continued where appropriate Weight / BMI Weight Weight: 292 lb 1.8 oz Body Mass Index (BMI) 46.9 ABG / Lab / Microbiology Data Result Diagrams: 02/08/23 03:05 02/08/23 03:05 Laboratory: Laboratory Results - last 24 hr 02/07/23 20:50: WBC 23.0 H, RBC 4.39 L, Hgb 13.0, Hct 38.4 L, MCV 87.5, MCH 29.6, MCHC 33.9, RDW Std Deviation 43.3, RDW Coeff of Jimy 13.4, Plt Count 305, MPV 9.2, Neut % (Auto) Not Reportable, Absolute Neuts (auto) 19.3 H, Absolute Lymphs (auto) 1.61, Total Counted 100, Neutrophils % (Manual) 67, Band Neutrophils % 17 H, Lymphocytes % (Manual) 7 L, Monocytes % (Manual) 5, Metamyelocytes % 4 H, Diff Path Review Reviewed, Platelet Estimate ADEQUATE, RBC Morphology N CHROM, Anisocytosis RARE 02/07/23 20:50: Sodium 134 L, Potassium 3.4 L, Chloride 98, Carbon Dioxide 23.0, Anion Gap 13, BUN 38 H, Creatinine 4.38 H, Estim Creat Clear Calc 17.82, Est GFR (MDRD) Af Amer 18 L, Est GFR (MDRD) Non-Af 15 L, BUN/Creatinine Ratio 8.7 L, Glucose 172 H, Calcium 9.7 02/07/23 20:50: PT 15.4 H, INR 1.2, APTT 34.9 02/07/23 21:00: POC Glucose 159 H 02/07/23 21:35: Lactic Acid 4.4 H* 02/07/23 21:51: Sodium 134 L, Potassium 3.6, Chloride 100, Carbon Dioxide 22.0, Anion Gap 12, BUN 37 H, Creatinine 4.51 H, Estim Creat Clear Calc 17.30, Est GFR (MDRD) Af Amer 18 L, Est GFR (MDRD) Non-Af 15 L, BUN/Creatinine Ratio 8.2 L, Glucose 189 H, Calcium 9.3, Total Bilirubin 0.60, AST 70 H, ALT 87 H, Alkaline Phosphatase 100, Troponin I High Sens 2556 H*, Total Protein 6.7, Albumin 2.5 L, Globulin 4.2, Albumin/Globulin Ratio 0.6 L 02/08/23 03:05: Lactic Acid 1.4 02/08/23 03:05: WBC 27.7 H, RBC 3.83 L, Hgb 11.4 L, Hct 34.5 L, MCV 90.1, MCH 29.8, MCHC 33.0, RDW Std Deviation 46.0 H, RDW Coeff of Jimy 13.9, Plt Count 319, MPV 9.7, Immature Gran % (Auto) 1.800 H, Neut % (Auto) 84.9 H, Lymph % (Auto) 7.3 L, [place] % (Auto) 5.6, Eos % (Auto) 0.0, Baso % (Auto) 0.4, Absolute Neuts (auto) 23.5 H, Absolute Lymphs (auto) 2.01, Nucleated RBC % 0, Differential Comment SCANNED, Diff Path Review Reviewed 02/08/23 03:05: Sodium 135 L, Potassium 5.2 H, Chloride 104, Carbon Dioxide 23.0, Anion Gap 8, BUN 38 H, Creatinine 4.18 H, Estim Creat Clear Calc 18.02, Est GFR (MDRD) Af Amer 19 L, Est GFR (MDRD) Non-Af 16 L, BUN/Creatinine Ratio 9.1 L, Glucose 175 H, Calcium 8.5, Total Bilirubin 0.60, AST 121 H, ALT 105 H, Alkaline Phosphatase 99, Total Protein 6.7, Albumin 2.4 L, Globulin 4.3 H, Albumin/Globulin Ratio 0.6 L 02/08/23 03:05: Total Creatine Kinase 468 H 02/08/23 03:05: Troponin I High Sens 2655 H* 02/08/23 07:45: Urine Color Yellow, Urine Clarity Sl. Cloudy, Urine pH 5.0, Ur Specific [place] 1.025, Urine Protein 30 H, Urine Glucose (UA) Normal, Urine Ketones 5 H, Urine Occult Blood 25 H, Urine Nitrite Negative, Urine Bilirubin 1 H, Urine Urobilinogen 1 H, Ur Leukocyte Esterase 25 H, Urine RBC 0-5 SEEN, Urine WBC 0-5 SEEN, Ur Squamous Epith Cells 0-5 SEEN, Urine Bacteria 1+, Urine Mucus 0 SEEN 02/08/23 10:57: POC Glucose 139 H Microbiology: Microbiology 02/08/23 08:48 Perianal Abcess Gram Stain - Final 02/08/23 08:44 Tissue - Aerobic & Anaerobic Swabs Gram Stain - Final Radiography Diagnostic Testing: Radiology Impression Abdomen/Pelvis CT 02/07/23 21:21 IMPRESSION: No pelvic mass. Electronically Signed: Tobin Forde DO at 22:34 EDT , ADDENDUM: 02/07/23 2343 IMPRESSION: undefined Brain CT 02/07/23 21:21 IMPRESSION: No acute intracranial pathology. Minimal paranasal sinus disease left sphenoid sinus. Electronically Signed: Tboin Forde DO at 22:26 EDT , Chest X-Ray 02/07/23 22:08 IMPRESSION: 1. No radiographic evidence of acute cardiopulmonary disease. Electronically Signed: Tobin Forde DO at 22:20 EDT , Meaningful Use Info Meaningful Use Diagnoses (Choose all that apply): None applicable Discharge Plan Admission Admit Date/Time: 02/08/23 02:02 Attending Provider: Felton Oconnor Primary Care Provider: Freddy Dsouza Consulting Providers: Venkatesh Palma ; Sallie Zaman ; Mike Avila Discharge Orders/Prescriptions Prescriptions: Continued multivitamin Tablet 1 tab PO DAILY aspirin [Adult Aspirin Regimen] 81 mg tablet,delayed release (DR/EC) 81 mg PO DAILY turmeric root extract 500 mg capsule 500 mg PO DAILY omega-3 fatty acids 1,000 mg capsule 1,000 mg PO DAILY cholecalciferol (vitamin D3) 50 mcg (2,000 unit) capsule 50 mcg PO DAILY furosemide [Lasix] 40 mg tablet 40 mg PO DAILY Qty: 90 3RF oxycodone 5 mg tablet 5 mg PO Q6H PRN (Reason: pain) 3 Days Qty: 9 0RF metformin 1,000 mg tablet metoprolol succinate 50 mg tablet extended release 24 hr 50 mg PO DAILY Qty: 90 3RF losartan 50 mg tablet 50 mg PO BID Qty: 180 3RF Discontinued metronidazole 500 mg tablet 250 mg PO BID Referrals / Follow Up: Freddy Dsouza MD [Primary Care Provider] - Charges/Coding Visit Charges Inpatient E&M: 71736 Disch Hosp >30min
[2023-02-08 17:47] LABS: Bedside Glucose 177 mg/dL (74-106)
== END 2023-02-08 17:43 | disposition short-term general hospital (02) | DRG 853 ==
LOC: ED 21:24 → ICU 02-08 02:50
PROVIDERS: Surgery; Admitting Provider Hospitalist; Emergency Provider Emergency Medicine; PCP Family Medicine; Visit Provider Family Medicine
PROC: 0JB90ZZ Excision of Buttock Subcutaneous Tissue and Fascia, Open Approach (ICD-10-PCS; principal; 2023-02-08 07:50)
DX: A41.9 Sepsis, unspecified organism (principal); R65.21 Severe sepsis with septic shock; K72.00 Acute and subacute hepatic failure without coma; M72.6 Necrotizing fasciitis; N17.0 Acute kidney failure with tubular necrosis; I13.0 Hypertensive heart and chronic kidney disease with heart failure and stage 1 through stage 4 chronic kidney disease, or unspecified chronic kidney disease; I42.0 Dilated cardiomyopathy; Z68.42 Body mass index [BMI] 45.0-49.9, adult; I24.8 Other forms of acute ischemic heart disease; I50.32 Chronic diastolic (congestive) heart failure; G93.49 Other encephalopathy; K61.0 Anal abscess; E87.20 Acidosis, unspecified; E11.21 Type 2 diabetes mellitus with diabetic nephropathy; E11.65 Type 2 diabetes mellitus with hyperglycemia; E11.22 Type 2 diabetes mellitus with diabetic chronic kidney disease; E66.01 Morbid (severe) obesity due to excess calories; Z79.4 Long term (current) use of insulin; I25.10 Atherosclerotic heart disease of native coronary artery without angina pectoris; N18.2 Chronic kidney disease, stage 2 (mild); E78.5 Hyperlipidemia, unspecified; Z95.810 Presence of automatic (implantable) cardiac defibrillator; Z95.5 Presence of coronary angioplasty implant and graft; Z79.82 Long term (current) use of aspirin; Z79.84 Long term (current) use of oral hypoglycemic drugs; Z79.891 Long term (current) use of opiate analgesic; Z79.899 Other long term (current) drug therapy; Z87.891 Personal history of nicotine dependence
CPT/HCPCS: 70450; 71045; 74176; 80048; 80053; 81001; 82550; 82962; 83605; 84484; 85025; 85610; 85730; 87040; 87070; 87075; 87077; 87086; 87176; 87186; 87205; 93005; 97802; 99284; J7030; J7040; A4216; J2405

== ENCOUNTER → 2023-02-07 | Outpatient (CLI) | payer OTHER, SELFPAY | END | disposition home or self-care (01) | LOC: LABSPEC 15:55 | PROVIDERS: PCP Family Medicine; Referring Provider Physician Assistant; Visit Provider Physician Assistant | DX: K61.0 Anal abscess (principal) | CPT/HCPCS: 87070; 87075; 87077; 87186; 87205 ==

== ENCOUNTER → 2023-03-26 | Outpatient (CLI) | payer OTHER, SELFPAY ==
[2023-03-26 11:04] LABS: Anion Gap 7 (5-15); BUN 19 mg/dL (7-18); BUN/Creat Ratio 16.1 RATIO (10-20); Calcium,Total 9.9 mg/dL (8.5-10.1); Chloride 101 mmol/L (98-107); Creatinine, Serum 1.18 mg/dL (0.70-1.30); EST Glomerular Filtration Rate 68 mL/min (>60); Est Glom Filt Rate - Afr Amer 82 mL/min (>60); Glucose 159 mg/dL (74-106); Potassium 3.7 mmol/L (3.5-5.1); Sodium Level 135 mmol/L (136-145)
== END | disposition home or self-care (01) ==
LOC: LAB 09:48
PROVIDERS: PCP Family Medicine; Referring Provider Physician Assistant Medical; Visit Provider Physician Assistant Medical
DX: I50.9 Heart failure, unspecified (principal)
CPT/HCPCS: 36415; 80048

== ENCOUNTER → 2023-05-09 | Outpatient (CLI) | payer OTHER, SELFPAY | END | disposition home or self-care (01) | LOC: SL 11:36 | PROVIDERS: PCP Family Medicine; Referring Provider Nurse Practitioner Acute Care; Visit Provider Nurse Practitioner Acute Care | DX: G47.34 Idiopathic sleep related nonobstructive alveolar hypoventilation (principal) | CPT/HCPCS: 94762 ==

== ENCOUNTER → 2023-05-13 | Outpatient (CLI) | payer OTHER, SELFPAY ==
--- NOTE | 2023-05-13 09:50 | ECHOCS_ITS ---
Version 2 Reason For Study: Dilated Cardiomyopathy Procedure This was a 2D Doppler, Color Flow transthoracic echocardiogram. The study was technically difficult. Contrast injection was performed. Exam performed in department. Left Ventricle Normal LV size. The left ventricular ejection fraction is 40 %. Stage 1 diastolic dysfunction. No regional wall motion abnormalities noted. Right Ventricle Normal RV size. ICD or pacer leads identified within the right ventricle. Normal systolic function. Tricuspid Valve Normal tricuspid valve. Mild (1+) tricuspid valve insufficiency. Pulmonary artery systolic pressure is 20 mmHg. Great Vessels Normal aortic root. The pulmonary artery is normal size. Normal inferior vena cava. Pericardium/Pleural No pericardial effusion. Medication 22 gauge I.V. with prn adaptor inserted into right arm. Diluted definity 2.5ml given slow IV push to enhance endocardial definition. MMode/2D Measurements & Calculations LVIDd: 6.1 cm IVSd: 1.1 cm Ao root diam: 3.0 cm LVIDs: 5.1 cm LVPWd: 1.1 cm LA dimension: 4.0 cm FS: 15.6 % LAV(MOD-bp): 58.3 ml SV(MOD-sp4): 42.2 ml LVAd ap4: 37.1 cm2 LAV(MOD-bp) Indexed: 26.3 ml/m2 LVLd ap4: 8.0 cm LAV(MOD-sp2): 50.1 ml EDV(MOD-sp4): 144.2 ml LAV(MOD-sp4): 57.9 ml EDV(sp4-el): 146.8 ml LVAs ap4: 31.2 cm2 LVLs ap4: 8.1 cm ESV(MOD-sp4): 102.0 ml ESV(sp4-el): 102.6 ml EF(MOD-sp4): 29.2 % EF(sp4-el): 30.1 % SV(sp4-el): 44.2 ml LA A4 area: 19.0 cm2 RA A4 area: 11.6 cm2 Time Measurements MV dec time: 0.16 sec Doppler Measurements & Calculations MV E max jeb: 64.5 cm/sec Lat Peak E' Jeb: 6.4 cm/sec Med Peak E' Jeb: 7.0 cm/sec MV A max jeb: 83.9 cm/sec E/E' lat: 10.1 E/E' med: 9.2 MV E/A: 0.77 MV V2 max: 105.2 cm/sec MV P1/2t max jeb: 79.1 cm/sec Ao V2 max: 111.0 cm/sec MV max P.4 mmHg MV P1/2t: 62.7 msec Ao max P.9 mmHg MV V2 mean: 58.2 cm/sec MV dec slope: 369.3 cm/sec2 Ao V2 mean: 80.6 cm/sec MV mean P.6 mmHg MVA(P1/2t): 3.5 cm2 Ao mean P.0 mmHg MV V2 VTI: 18.3 cm Ao V2 VTI: 21.3 cm AV (velocity ratio): 0.87 LV V1 max: 105.9 cm/sec PA V2 max: 117.0 cm/sec TR max jeb: 193.6 cm/sec LV V1 max P.5 mmHg PA V2 mean: 76.1 cm/sec TR max P.0 mmHg LV V1 mean P.2 mmHg LV V1 mean: 68.8 cm/sec LV V1 VTI: 18.5 cm ECHO/Echo Complete W/ Contrast Interpretation Summary The left ventricular ejection fraction is 40 %. Normal LV size. Stage 1 diastolic dysfunction. Pulmonary artery systolic pressure is 20 mmHg. Contrast injection was performed. Ordering Physician: Janine Clark Referring Physician: Janine Clark Performed By: Camron Clark [facility]
[2023-05-13 11:21] LABS: Absolute Lymphocyte Count 2.36 X10^3/uL (0.83-4.51); Absolute Neutrophil Count 5.5 X10^3/uL (2.0-7.7); Basophil# 0.06 X10^3/uL; Basophil% 0.7 % (0-1); Eosinophil# 0.18 X10^3/uL; Eosinophils% 2.1 % (0-5); Hematocrit 45.5 % (40-54); Hemoglobin 14.9 g/dL (13.0-16.5); Lymphocyte # 2.36 X10^3/ul (0.83-4.51); Lymphocyte % 27.1 % (19-41); Mean Corp Hgb Conc 32.7 g/dL (32-36); Mean Corpuscular Hgb 28.9 pg (27.0-32.0); Mean Corpuscular Volume 88.3 fL (80-94); Mean Platelet Vol. 9.1 fl (6.2-12.0); Monocyte# 0.63 X10^3/uL; Monocyte% 7.2 % (0-10); NRBC Flagged by Analyzer 0 % (0-5); Neutrophil # 5.46 X10^3/uL (2.7-7.7); Neutrophil % 62.6 % (47-70); Platelet Count 372 K/mm3 (150-450); RBC Distribution Width SD 42.3 fl (35.1-43.9); Red Blood Count 5.15 M/mm3 (4.6-6.2); White Blood Count 8.7 K/mm3 (4.4-11.0)
[2023-05-13 11:37] LABS: Hemoglobin A1c 6.1 % (3.8-5.6)
[2023-05-13 12:00] LABS: ALB/GLOB Ratio 0.9 RATIO (0.9-2.4); AST(SGOT) 18 U/L (15-37); Alanine Aminotransfer ALT/SGPT 33 U/L (16-61); Albumin, Serum 3.9 g/dL (3.2-5.0); Alkaline Phosphatase 84 U/L (45-117); Anion Gap 5 (5-15); BUN 23 mg/dL (7-18); BUN/Creat Ratio 17.7 RATIO (10-20); Calcium,Total 9.4 mg/dL (8.5-10.1); Chloride 104 mmol/L (98-107); EST Glomerular Filtration Rate 61 mL/min (>60); Est Glom Filt Rate - Afr Amer 73 mL/min (>60); Globulin 4.3 g/dL (2.2-4.2); Glucose 144 mg/dL (74-106); Potassium 3.9 mmol/L (3.5-5.1); Protein, Total 8.2 g/dL (6.4-8.2); Sodium Level 136 mmol/L (136-145); Thyroid Stim Hormone (TSH) 3.12 uIU/mL (0.358-3.74)
== END | disposition home or self-care (01) ==
PROVIDERS: PCP Family Medicine; Referring Provider Physician Assistant Medical; Visit Provider Physician Assistant Medical
DX: R53.83 Other fatigue (principal); I42.0 Dilated cardiomyopathy; E11.9 Type 2 diabetes mellitus without complications; D64.9 Anemia, unspecified
CPT/HCPCS: 36415; 80053; 83036; 84443; 85025; 93306; Q9957; A4216; C8929

== ENCOUNTER → 2023-07-23 | Outpatient (CLI) | payer OTHER, SELFPAY ==
[2023-07-23 10:13] LABS: Absolute Lymphocyte Count 2.59 X10^3/uL (0.83-4.51); Absolute Neutrophil Count 5.6 X10^3/uL (2.0-7.7); Basophil# 0.05 X10^3/uL; Basophil% 0.5 % (0-1); Eosinophils% 2.2 % (0-5); Hematocrit 45.4 % (40-54); Hemoglobin 14.5 g/dL (13.0-16.5); Lymphocyte # 2.59 X10^3/ul (0.83-4.51); Lymphocyte % 28.1 % (19-41); Mean Corp Hgb Conc 31.9 g/dL (32-36); Mean Corpuscular Hgb 28.1 pg (27.0-32.0); Mean Platelet Vol. 9.1 fl (6.2-12.0); Monocyte# 0.72 X10^3/uL; Monocyte% 7.8 % (0-10); NRBC Flagged by Analyzer 0 % (0-5); Neutrophil # 5.59 X10^3/uL (2.7-7.7); Neutrophil % 60.7 % (47-70); Platelet Count 418 K/mm3 (150-450); RBC Distribution Width CV 13.8 % (11.6-14.6); RBC Distribution Width SD 44.5 fl (35.1-43.9); Red Blood Count 5.16 M/mm3 (4.6-6.2); White Blood Count 9.2 K/mm3 (4.4-11.0)
[2023-07-23 11:05] LABS: ALB/GLOB Ratio 0.8 RATIO (0.9-2.4); AST(SGOT) 18 U/L (15-37); Alanine Aminotransfer ALT/SGPT 23 U/L (16-61); Albumin, Serum 3.6 g/dL (3.2-5.0); Alkaline Phosphatase 75 U/L (45-117); Anion Gap 3 (5-15); BUN 24 mg/dL (7-18); BUN/Creat Ratio 20.3 RATIO (10-20); Calcium,Total 9.7 mg/dL (8.5-10.1); Chloride 104 mmol/L (98-107); Cholesterol 176 mg/dL (200); Creatinine, Serum 1.18 mg/dL (0.70-1.30); EST Glomerular Filtration Rate 68 mL/min (>60); Est Glom Filt Rate - Afr Amer 82 mL/min (>60); Globulin 4.3 g/dL (2.2-4.2); Glucose 131 mg/dL (74-106); High Density Lipoprotein 36 mg/dL; Magnesium 2.3 mg/dL (1.6-2.6); Protein, Total 7.9 g/dL (6.4-8.2); Sodium Level 136 mmol/L (136-145); Triglycerides 102 mg/dL; Very Low Density Lipoprotein 20 mg/dL (5-40)
[2023-07-23 11:38] LABS: Hemoglobin A1c 6.3 % (3.8-5.6)
== END | disposition home or self-care (01) ==
LOC: MTLAB 09:05
PROVIDERS: PCP Family Medicine; Referring Provider Family Medicine; Visit Provider Family Medicine
DX: D64.9 Anemia, unspecified (principal); E11.9 Type 2 diabetes mellitus without complications; R53.83 Other fatigue; E78.5 Hyperlipidemia, unspecified
CPT/HCPCS: 36415; 80053; 80061; 83036; 83735; 85025

== ENCOUNTER → 2023-10-15 | Outpatient (CLI) | payer OTHER, SELFPAY ==
--- NOTE | 2023-10-15 15:10 | RAD_ITS ---
STUDY: X-RAY - LEFT KNEE REASON FOR EXAM: Male, 58 years old. Acute on chronic knee pain. TECHNIQUE: 4 views of the left knee. COMPARISON: None. FINDINGS: Normal visualized distal femur. Normal visualized proximal tibia and fibula. Normal proximal tibiofibular articulation. There is no demonstrated fracture. Normal medial femorotibial compartment. Normal lateral femorotibial compartment. Normal patellofemoral articulation. There is osseous spurring at the superior and inferior poles of the patella. The soft tissue structures are unremarkable. RAD/Knee 4 or More Views IMPRESSION: Osseous spurring at the superior and inferior poles of the patella. No demonstrated fracture. Electronically Signed: Alcon Ohara MD at 11:44 EST ,
== END | disposition home or self-care (01) ==
LOC: MTRAD 15:07
PROVIDERS: PCP Family Medicine; Referring Provider Family Medicine; Visit Provider Family Medicine
DX: M25.562 Pain in left knee (principal); G89.29 Other chronic pain
CPT/HCPCS: 73564

== ENCOUNTER 2024-03-23 06:30 | Day surgery (SDC) | payer OTHER, SELFPAY ==
[2024-03-23] VITALS (9 sets, daily range): BP systolic 101–149; BP diastolic 67–86; PULSE 68–84; RESP 16–18; TEMP 36.6–37.1; O2SAT 92–100; BMI 41.7
[2024-03-23] MEDS: Lactated Ringers 1,000 ML 15 ML IV (06:56)
--- NOTE | 2024-03-23 07:10 | HP.PCM_ITS ---
HPI - General General Date of Service: 03/23/24 HPI Narrative MALLY WILSON, is a 58 M who presents for screening colonoscopy. Patient denies any changes since office visit. office visit 02/18/2024 [facility] HPI: 58-year-old male presents for screening colonoscopy. Patient never had previous colonoscopy. Patient father had colon cancer at age 78. Patient has bowel movements daily denies any blood. Patient did have a necrotizing infection around the anus in January 2023 which he did have diverting loop ileostomy for about 6 months. Patient denies any nausea vomiting or reflux. [facility] Medical History (Updated 03/18/24 @ 14:20 by Viola Fernandez) Wears glasses Diabetes Arthritis High cholesterol Leg cramps History of echocardiogram History of stress test Cardiology follow-up encounter History of pacemaker History of necrotizing fasciitis (~02/08/23) Perianal abscess Perianal abscess Thrombosed hemorrhoids Type 2 diabetes mellitus BMI 34.0-34.9,adult KATIA (obstructive sleep apnea) Dilated cardiomyopathy Abnormal EKG Severe left ventricular systolic dysfunction Abnormal echocardiogram Family history of ischemic heart disease Hyperlipidemia Essential hypertension Atherosclerosis of coronary artery of [place] heart without angina pectoris Home Medications ?Medication ?Instructions ?Recorded ?Last Taken ?Type aspirin 81 mg tablet,delayed 81 mg PO DAILY 08/04/19 03/22/24 History release (Adult Aspirin Regimen) cholecalciferol (vitamin D3) 50 50 mcg PO DAILY 01/08/23 03/22/24 History mcg (2,000 unit) capsule empagliflozin 10 mg tablet 10 mg PO DAILY 03/26/23 03/22/24 History (Jardiance) mecobalamin (vitamin B12) 2,500 2,500 mcg PO DAILY 03/26/23 03/22/24 History mcg chewable tablet zinc gluconate 50 mg tablet 50 mg PO DAILY 03/26/23 03/22/24 History gemfibrozil 600 mg tablet 600 mg PO DAILY #90 tabs 05/01/23 03/22/24 Rx nitroglycerin 0.4 mg sublingual 0.4 mg sublingual Q5-15M PRN chest 07/01/23 03/22/24 Rx tablet (Nitrostat) pain #25 tabs amoxicillin 500 mg capsule 2,000 mg (4 x 500 mg) PO .COMPLEX 07/08/23 Unknown Rx #4 caps ezetimibe 10 mg tablet (Zetia) 10 mg PO DAILY #30 tabs 10/02/23 03/22/24 Rx metoprolol succinate 50 mg 50 mg PO DAILY #90 tabs 12/23/23 03/22/24 Rx tablet,extended release 24 hr losartan 50 mg tablet 50 mg PO BID #180 tabs 01/14/24 03/22/24 Rx furosemide 40 mg tablet (Lasix) 40 mg PO MOWEFR 03/18/24 03/22/24 History Allergy/AdvReac Type Severity Reaction Status Date / Time tramadol Allergy Severe Other Verified 03/23/24 06:55 naproxen Allergy Intermediate PT UNSURE Verified 03/23/24 06:55 OF REACTION pravastatin AdvReac Severe Myalgias Verified 03/23/24 06:55 metformin AdvReac Intermediate Diarrhea Verified 03/23/24 06:55 Family History Father Pacemaker Mother Atrial fibrillation Surgical History Status post reversal of ileostomy History of partial knee replacement (05/29/22) Presence of implantable cardioverter-defibrillator (ICD) History of right and left heart catheterization (LHC) (09/02/19) Stented coronary artery (03/15/09) History of left heart catheterization (03/15/09) Social History Smoking Status: Former smoker quit date: 03/15/09 alcohol intake: current alcohol intake frequency: holidays/special occasions only substance use type: does not use caffeine: Yes Type: coffee Number of servings: 2 Past Medical/Surgical History Planned Operation Planned Operative Procedure(s): CSCOPE Previous Hospitalizations/Surgeries HX Hospitalizations: Yes (05/2023 [facility]) HX of Surgeries: heart cath with stents Any Problems With Anesthesia: No You/Your Family Experience Fever (Hyperthermia) With Anes: No Cholinesterase deficiency: No Cardiovascular Hx Chest Pain within Last 2 months: No Hx of Irregular Heartbeat and/or Afib: No Hx Heart Attack: No Hx Congestive Heart Failure: No Hx Rheumatic Fever: No Hx Hypertension: Yes (CONTROLLED WITH MED) Hx Internal Defibrillator: No Hx Pacemaker: No Hx Cardiac Catheterization: Yes Hx Cardiac Surgery/Stents/Etc.: No Hx Stress Test: Yes Respiratory Hx Chronic Obstructive Pulmonary Disease (COPD): No Hx Asthma: No Hx Emphysema: No Hx Sleep Apnea: No (IN THE PAST, RECENT SLEEP STUDY SHOWED NO SLEEP APNEA AFTER WEIGHT) CPAP: No BIPAP: No Hx Respiratory Tract Infection/Cold (presently): No Do You Snore Loudly (louder than talking or can be heard): No Do You Often Feel Tired/ Fatigued/ Sleepy Dring Daytime?: No Has Anyone Observed You Stop Breathing During Sleep?: No Result (for STOP score): Negative Hx Smoking: Yes Smoking Status: Former smoker Gastrointestinal Hx Ulcer: No Hx Unplanned Weight Loss of 20#: No HX Unplanned Weight Gain of 20#: No Neurological Hx Seizures: No HX Syncope/Blackout Spells/Unconsciousness: No Does patient have nerve stimulator: No Blood Disorder Hx Deep Vein Thrombosis: No Hx High Cholesterol: Yes Hx Anemia: No Reproduction : No Genitourinary Hx Dialysis: No Musculoskeletal Hx Arthritis: No Endocrine Hx Diabetes: No Psycho/Social Hx Alcohol Use: No Hx Anxiety: No Hx Depression: No Miscellaneous Hx Cancer: No Recent Exposure to Contagious Disease: No Allergies tramadol Allergy (Severe, Verified 03/23/24 06:55) Other Headache severe naproxen Allergy (Intermediate, Verified 03/23/24 06:55) PT UNSURE OF REACTION pravastatin Adverse Reaction (Severe, Verified 03/23/24 06:55) Myalgias metformin Adverse Reaction (Intermediate, Verified 03/23/24 06:55) Diarrhea Discharge Is Pt Admitted From a Group Home, or a Snf: No After D/C, Where Do you Plan to Go: Return Home Vital Signs Vital Signs Vital Signs: 03/23/24 06:57 03/23/24 06:57 Temperature 97.8 F Temperature Source Temporal Pulse Rate 84 Respiratory Rate 17 Respiratory Pattern Normal Blood Pressure 149/86 H Blood Pressure Mean 107 Blood Pressure Source Monitor Blood Pressure Position Semi-Fowlers Blood Pressure Location Right Arm Pulse Ox 100 Oxygen Delivery Method Room Air Weight Weight: 258 lb 9.636 oz Body Mass Index (BMI) 41.7 Assessment & Plan Assessment/Plan (1) Encounter for screening colonoscopy: Surgery Risks - Colonoscopy I discussed with the patient the risks of the procedure: Yes Risks Include but are not Limited To: Risks include but are not limited to: Bleeding, perforation requiring further surgery, inability to complete colonoscopy requiring barium enema.
[2024-03-23 07:44] LABS: Bedside Glucose 105 mg/dL (74-106)
--- NOTE | 2024-03-23 07:51 | PRE.ANES_ITS ---
ASA Classification* ASA Classification ASA Classification: 3 Assessment & Plan Anesthesia* Anesthesia Assessment Anesthesia Assessment: Discussed sedation and/or anesthesia options, risks, benefits, and alternatives with patient/parents/legal guardian/POA. Questions invited. The patient/parents/legal guardian/POA seems to understand and agrees to proceed with anesthesia plan. Reviewed the physical assessment, medical history, allergy history and patient home medications list prior to surgery/procedure/anesthetic and documented any changes. Performed airway and anesthesia risk assessments. Anesthesia Type Anesthesia Type: MAC (*see written pre anesthesia record for full assessment) Anesthesia Focused Assessment* Temperature: 97.8 F Pulse Rate: 84 Blood Pressure: 149/86 Respiratory Rate: 17 Pulse Ox: 100 Airway Assessment Mouth opens: >3 cm Mallampati Score: II Focused Labs Anesthesia Preop lab: CBC WBC 9.2 K/mm3 (4.4-11.0) 07/23/23 09:06 RBC 5.16 M/mm3 (4.6-6.2) 07/23/23 09:06 Hgb 14.5 g/dL (13.0-16.5) 07/23/23 09:06 Hct 45.4 % (40-54) 07/23/23 09:06 Plt Count 418 K/mm3 (150-450) 07/23/23 09:06 CHEMISTRY Potassium 4.0 mmol/L (3.5-5.1) 07/23/23 09:06 Sodium 136 mmol/L (136-145) 07/23/23 09:06 Magnesium 2.3 mg/dL (1.6-2.6) 07/23/23 09:06 BUN 24 mg/dL (7-18) H 07/23/23 09:06 Creatinine 1.18 mg/dL (0.70-1.30) 07/23/23 09:06 Glucose 131 mg/dL (74-106) H 07/23/23 09:06 POC Glucose 105 mg/dL (74-106) 03/23/24 06:49 TSH 3.12 uIU/mL (0.358-3.74) 05/13/23 10:58 COAG PT 15.4 SECONDS (11.7-14.9) H 02/07/23 20:50 Pre-Assessment Diagnosis/Proposed Procedure Planned Operative Procedure(s): CSCOPE Anesthesia History 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 When Was Last Pacemaker Check QUESTION #4 FULL TEXT: You/Your Family Experience fever (hyperthermia) with Anesthesia Last Oral Intake Last Oral intake: Last Oral Intake NPO since 05:45 03/23/24 06:57 Meds taken in AM with sips of No 03/23/24 06:57 water? Meds patient instructed to losartan 03/23/24 06:57 take am of surgery PONV PONV - bonded structures repairer: PONV - bonded structures repairer Female No 03/18/24 14:11 HX of Motion Sickness No 03/18/24 14:11 HX of N/V After Surgery No 03/18/24 14:11 Non-Smoker Yes 03/18/24 14:11 Duration of Surgery greater No 03/18/24 14:11 than 60 minutes Number of Risk Factors 1 03/18/24 14:11 PONV Score Low Risk 03/18/24 14:11 Height & Weight Height & Weight: Anesthesia: Height & Weight Height 5 ft 6 in 03/23/24 06:57 Weight: 117.3 kg 03/23/24 06:57 Body Mass Index (BMI) 41.7 03/23/24 06:57 Respiratory Assessment Respiratory Assessment - bonded structures repairer: Respiratory Tract Infection Hx - bonded structures repairer Hx Respiratory Tract Infection No 03/23/24 07:11 STOP Sleep Apnea STOP Sleep Apnea - bonded structures repairer: STOP Sleep Apnea - bonded structures repairer Hx Hypertension Yes: CONTROLLED WITH MED 03/23/24 07:11 Hx Sleep Apnea No: IN THE PAST, RECENT 03/23/24 07:11 SLEEP STUDY SHOWED NO SLEEP APNEA AFTER WEIGHT CPAP No 03/23/24 07:11 BIPAP No 03/23/24 07:11 Do you snore loudly (louder No 03/23/24 07:11 than talking or can be heard Do you often feel tired/ No 03/23/24 07:11 fatigued/ sleepy during daytime? Has anyone observed you stop No 03/23/24 07:11 breathing during sleep? STOP Results Negative 03/23/24 07:17 QUESTION #5 FULL TEXT : Do you snore loudly (louder than talking or can be heard through closed doors)? 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 Specify any problems Hx of Preganancy in last 3 N/A 03/18/24 14:11 Months Nurse Filling Out Transfusion NBUCHER 03/18/24 14:11 & Questions: Date: 03/18/24 03/18/24 14:11 Time: 14:14 03/18/24 14:11 Patient unable to answer at this time (ie. confused, unrespo /Reproduction History /Reproductive History - bonded structures repairer: /Reproductive Hx- bonded structures repairer Hx Now No 03/23/24 07:11 Gestational Age (in weeks): EDC: Hx Hx Para Hx Section SAB No 03/18/24 14:11 Active Medications Active Medications: Current Medications Generic Name Dose Route Start Last Admin Trade Name Freq PRN Reason Stop Dose Admin Lactated Ringer's 1,000 mls @ 15 mls/hr 03/23/24 06:45 03/23/24 06:56 IV 15 mls/hr .Q48H VERNELL Administration PFSH Medical History Wears glasses Diabetes Arthritis High cholesterol Leg cramps History of echocardiogram History of stress test Cardiology follow-up encounter History of pacemaker History of necrotizing fasciitis (~02/08/23) Perianal abscess Perianal abscess Thrombosed hemorrhoids Type 2 diabetes mellitus BMI 34.0-34.9,adult KATIA (obstructive sleep apnea) Dilated cardiomyopathy Abnormal EKG Severe left ventricular systolic dysfunction Abnormal echocardiogram Family history of ischemic heart disease Hyperlipidemia Essential hypertension Atherosclerosis of coronary artery of [place] heart without angina pectoris Home Medications ?Medication ?Instructions ?Recorded ?Last Taken ?Type aspirin 81 mg tablet,delayed 81 mg PO DAILY 08/04/19 03/22/24 History release (Adult Aspirin Regimen) cholecalciferol (vitamin D3) 50 50 mcg PO DAILY 01/08/23 03/22/24 History mcg (2,000 unit) capsule empagliflozin 10 mg tablet 10 mg PO DAILY 03/26/23 03/22/24 History (Jardiance) mecobalamin (vitamin B12) 2,500 2,500 mcg PO DAILY 03/26/23 03/22/24 History mcg chewable tablet zinc gluconate 50 mg tablet 50 mg PO DAILY 03/26/23 03/22/24 History gemfibrozil 600 mg tablet 600 mg PO DAILY #90 tabs 05/01/23 03/22/24 Rx nitroglycerin 0.4 mg sublingual 0.4 mg sublingual Q5-15M PRN chest 07/01/23 03/22/24 Rx tablet (Nitrostat) pain #25 tabs amoxicillin 500 mg capsule 2,000 mg (4 x 500 mg) PO .COMPLEX 07/08/23 Unknown Rx #4 caps ezetimibe 10 mg tablet (Zetia) 10 mg PO DAILY #30 tabs 10/02/23 03/22/24 Rx metoprolol succinate 50 mg 50 mg PO DAILY #90 tabs 12/23/23 03/22/24 Rx tablet,extended release 24 hr losartan 50 mg tablet 50 mg PO BID #180 tabs 01/14/24 03/22/24 Rx furosemide 40 mg tablet (Lasix) 40 mg PO MOWEFR 03/18/24 03/22/24 History Allergy/AdvReac Type Severity Reaction Status Date / Time tramadol Allergy Severe Other Verified 03/23/24 06:55 naproxen Allergy Intermediate PT UNSURE Verified 03/23/24 06:55 OF REACTION pravastatin AdvReac Severe Myalgias Verified 03/23/24 06:55 metformin AdvReac Intermediate Diarrhea Verified 03/23/24 06:55 Family History Father Pacemaker Mother Atrial fibrillation Surgical History Status post reversal of ileostomy History of partial knee replacement (05/29/22) Presence of implantable cardioverter-defibrillator (ICD) History of right and left heart catheterization (LHC) (09/02/19) Stented coronary artery (03/15/09) History of left heart catheterization (03/15/09) Social History Smoking Status: Former smoker quit date: 03/15/09 alcohol intake: current alcohol intake frequency: holidays/special occasions only substance use type: does not use caffeine: Yes Type: coffee Number of servings: 2 Review of Systems (Anesthesia) ROS Narrative System reviewed and no additional complaints, except as documented.
--- NOTE | 2024-03-23 08:00 | COLBX_PTH ---
PATIENT: MALLY WILSON LOC: EN U#:[id number] AGE/SX: 58/M ROOM: RE03/23/[address]: Dr. Sallie Zaman MD : 1965 BED: DIS: 03/23/2024 SPEC #: [id number] RECD: 03/23/24 09:59 STATUS: YUE ALEXANDRA #: [id number] JESUS: 03/23/24 08:[address]: Sallie Zaman DEPT: SURGICAL PATHOLOGY RECD BY: Alyssa Brannon ENTERED: 03/23/24 10:45 SP TYPE: COLON BX OTHR DR: Marine Greer MD Tissues: A - Ascending colon B - Transverse colon C - Rectum, NOS Procedures: Surgery Specimen Level IV HEADER OPERATION: Colonoscopy, polypectomy PRE-OP DIAGNOSIS: Encounter for screening colonoscopy TISSUE SUBMITTED: A- Ascending colon polyp, B- Transverse colon polyp, C- Rectum polyp MICROSCOPIC DIAGNOSIS A. Ascending colon polyp, polypectomy: Fragments of tubular adenoma. B. Transverse colon polyp, polypectomy: Fragments of tubular adenoma. C. Rectum polyp, polypectomy: Fragments of tubular adenoma. ERNIE/ 03/24/2024 MICROSCOPIC DESCRIPTION Slides are reviewed. GROSS DESCRIPTION A. Received in fixative is one container labeled with the patient's name and designated Ascending colon polyp. The specimen consists of multiple irregular fragments of light sibley soft tissue that in aggregate measure 1.5 x 0.3 x 0.1 cm. The specimen is totally submitted in one cassette. B. Received in fixative is one container labeled with the patient's name and designated Transverse colon polyp. The specimen consists of multiple irregular fragments of light sibley soft tissue that in aggregate measure 1.0 x 0.5 x 0.1 cm. The specimen is totally submitted in one cassette. C. Received in fixative is one container labeled with the patient's name and designated Rectum polyp. The specimen consists of two irregular fragments of light sibley soft tissue that in aggregate measure 0.8 x 0.5 x 0.1 cm. The specimen is totally submitted in one cassette. ERNIE/ 03/23/2024 TC:1 CPT:06238y2
--- NOTE | 2024-03-23 08:29 | OP.CCLET_ITS ---
03/23/2024 Marine Greer Md Re : Colonoscopy procedure for Inocencio Santiago Percy This procedure was performed on Saturday, March 23, 2024. My impressions and recommendations are as follows: Impressions : - Three less than 5 mm polyps in the rectum, in the transverse colon and in the ascending colon, removed with a hot snare. Resected and retrieved. - The examination was otherwise normal. Recommendations : - Discharge patient to home. - Resume previous diet. - Continue present medications. - Await pathology results. - Repeat colonoscopy in 5 years for surveillance based on pathology results. My findings are described in the full procedure note, which is enclosed. If I can be of further assistance, please feel free to contact me at Doctor phone number(s): , Work: . Sincerely, MD Sallie Lentz MD 03/23/2024 8:28:39 AM This report has been signed electronically.
--- NOTE | 2024-03-23 08:29 | OP.COLON_ITS ---
Patient Name: Inocencio Irwin Procedure Date: 03/23/2024 7:50 AM Date of : 1965 Age: 58 Procedure: Colonoscopy Indications: Screening for colorectal malignant neoplasm Providers: Sallie Zaman MD Referring MD: Marine Greer Md Medicines: Monitored Anesthesia Care Patient Profile: This is a 58 year old male. Last Colonoscopy: none. The patient's first colonoscopy is today. Complications: No immediate complications. Procedure: Pre-Anesthesia Assessment: - Prior to the procedure, a History and Physical was performed, and patient medications and allergies were reviewed. The patient's tolerance of previous anesthesia was also reviewed. The risks and benefits of the procedure and the sedation options and risks were discussed with the patient. All questions were answered, and informed consent was obtained. Prior Anticoagulants: The patient has taken no anticoagulant or antiplatelet agents. ASA Grade Assessment: Per anesthesia. After reviewing the risks and benefits, the patient was deemed in satisfactory condition to undergo the procedure. After I obtained informed consent, the scope was passed under direct vision. Throughout the procedure, the patient's blood pressure, pulse, and oxygen saturations were monitored continuously. The Colonoscope was introduced through the anus and advanced to the cecum, identified by appendiceal orifice and ileocecal valve. The colonoscopy was performed without difficulty. The patient tolerated the procedure well. The quality of the bowel preparation was good. Scope In: 8:02:22 AM Scope Withdrawal Time 0 hours 14 minutes 29 seconds Scope Out: 8:21:16 AM Total Procedure Duration Time 0 hours 18 minutes 54 seconds Findings: Previous perianal incision and debridement for necrotizing infection well healed Three semi-pedunculated polyps were found in the rectum, transverse colon and ascending colon. The polyps were less than 5 mm in size. These polyps were removed with a hot snare. Resection and retrieval were complete. The exam was otherwise without abnormality. Impression: - Three less than 5 mm polyps in the rectum, in the transverse colon and in the ascending colon, removed with a hot snare. Resected and retrieved. - The examination was otherwise normal. Recommendation: - Discharge patient to home. - Resume previous diet. - Continue present medications. - Await pathology results. - Repeat colonoscopy in 5 years for surveillance based on pathology results. Procedure Code(s): --- Professional --- 45187, PT, Colonoscopy, flexible; with removal of tumor(s), polyp(s), or other lesion(s) by snare technique Diagnosis Code(s): --- Professional --- Z12.11, Encounter for screening for malignant neoplasm of colon D12.8, Benign neoplasm of rectum D12.3, Benign neoplasm of transverse colon (hepatic flexure or splenic flexure) D12.2, Benign neoplasm of ascending colon CPT copyright 2021 [employer]. All rights reserved. The codes documented in this report are preliminary and upon oven unloader review may be revised to meet current compliance requirements. MD Sallie Lentz MD 03/23/2024 8:28:39 AM This report has been signed electronically. Number of Addenda: 0 Note Initiated On: 03/23/2024 7:50 AM
--- NOTE | 2024-03-23 08:33 | PCM.POST.ANE ---
Anesthesia: Postop Eval I Current Vital Signs Temperature: 98.4 F Pulse Rate: 79 Blood Pressure: 114/67 Respiratory Rate: 18 Pulse Ox: 95 Oxygen Delivery Method: Room Air Assessment Airway patent: Yes Spontaneous unlabored respirations: Yes Mental status: Awake nausea: No Vomiting: No Anesthesia Complication: No Fluid Hydration Crystalloid volume administer (ml): 600 Total IV fluid infused: 600 Progress Note Anesthesia document: Postop Eval 1 completed: Yes
--- NOTE | 2024-03-23 08:36 | PCM.POSTANE2 ---
Anesthesia Postop Eval I Sum Postop Eval Completion status Anesthesia document: Postop Eval 1 completed: Yes Anesthesia Postop Eval I Summary Anesthesia Postop Eval I Summary: Anesthesia Postop Eval I: Assessment Summary Airway patent Yes 03/23/24 08:34 [email or web address] Spontaneous unlabored Yes 03/23/24 08:34 [email or web address] respirations Mental status Awake 03/23/24 08:34 [email or web address] nausea No 03/23/24 08:34 [email or web address] Vomiting No 03/23/24 08:34 [email or web address] Anesthesia Postop Eval I: Fluid Summary Crystalloid volume administer 600 03/23/24 08:34 [email or web address] (ml) Colloids volume administered ( ml) Blood Product volume administered (ml) Total IV fluid infused 600 03/23/24 08:34 [email or web address] Anesthesia Postop Eval I: Summary Notes Anesthesia Complication No 03/23/24 08:34 [email or web address] Anesthesia Complication Comment: Post-operative progress note Anesthesia: Postop Eval II Evaluation Mental status: Awake Pain Level: 0 nausea: No Vomiting: No
== END 2024-03-23 09:14 | disposition home or self-care (01) ==
LOC: EN 06:31 → AC 06:33
PROVIDERS: PCP Family Medicine; Referring Provider Family Medicine; Visit Provider Surgery
PROC: 0DJD8ZZ Inspection of Lower Intestinal Tract, Via Natural or Artificial Opening Endoscopic (ICD-10-PCS; CPT 45378; principal; 2024-03-23 07:55)
DX: Z12.11 Encounter for screening for malignant neoplasm of colon (principal); I11.0 Hypertensive heart disease with heart failure; I50.9 Heart failure, unspecified; I42.0 Dilated cardiomyopathy; E11.9 Type 2 diabetes mellitus without complications; D12.2 Benign neoplasm of ascending colon; D12.3 Benign neoplasm of transverse colon; D12.8 Benign neoplasm of rectum; I25.10 Atherosclerotic heart disease of native coronary artery without angina pectoris; G47.33 Obstructive sleep apnea (adult) (pediatric); Z87.891 Personal history of nicotine dependence; Z79.82 Long term (current) use of aspirin; Z80.0 Family history of malignant neoplasm of digestive organs; Z95.810 Presence of automatic (implantable) cardiac defibrillator; Z95.5 Presence of coronary angioplasty implant and graft
CPT/HCPCS: 45385; 82962; 88305; J7120; J2405

== ENCOUNTER → 2024-11-27 | Outpatient (CLI) | payer OTHER, SELFPAY ==
--- NOTE | 2024-11-27 11:45 | RAD_ITS ---
EXAM: XR Left Knee Complete, 4 or More Views CLINICAL INDICATION: KNEE PAIN TECHNIQUE: Four or more views of the left knee. COMPARISON: No relevant prior studies available. FINDINGS: BONES/JOINTS: Moderate degenerative change of the medial compartment of the knee joint. No acute fracture. No dislocation. SOFT TISSUES: Soft tissue swelling. RAD/Knee 4 or More Views IMPRESSION: Degenerative changes as above. Reading Location: [facility]
== END | disposition home or self-care (01) ==
LOC: MTRAD 11:30
PROVIDERS: PCP Family Medicine; Referring Provider Family Medicine; Visit Provider Family Medicine
DX: M25.562 Pain in left knee (principal)
CPT/HCPCS: 73564